=== PATIENT | female | born 1965 | race Caucasian/White ===

== ENCOUNTER 2022-11-22 08:07 | Outpatient (OUT) | payer OTHER, SELFPAY ==
--- NOTE | 2022-11-22 08:21 | MM_ITS ---
Patient: ADRIANA KAPADIA Exam Date: 11/22/2022 : 1965 Gender:F Ordering : DR KRANTHI MARISCAL M.D. Admission #: [id number] Family : DR Valdesarnie Stevenson . Order #: [id number] CLICK HERE TO VIEW EXAM RADIOLOGY REPORT PROCEDURE: MM TOMOSYNTHESIS SCREENING BI COMPARISON: MG MAMM SCREEN 3D KERI CAD, 10/28/2021. INDICATIONS: Screening Calculator Name NCI Breast Cancer Risk Assessment Tool 5 Year Breast Cancer Risk 1.70% Lifetime Breast Cancer Risk 9.40% Personal Breast Cancer No Personal Ovarian Cancer No Treatments None Family Cancers Grandfather-paternal with prostate cancer at age ~70; Grandmother-maternal with breast cancer at age 88. LOCATION: [facility] BREAST COMPOSITION: Extremely dense, which lowers the sensitivity of mammography. FINDINGS: DIAGNOSTIC CATEGORY 2--BENIGN FINDING: RIGHT BREAST: No significant suspicious finding. No significant change has occurred. LEFT BREAST: No significant suspicious finding. Scattered benign-appearing lymph nodes are present. No significant change has occurred. RECOMMENDATIONS: ROUTINE MAMMOGRAM AND CLINICAL EVALUATION IN 12 MONTHS. PLEASE NOTE: A NORMAL MAMMOGRAM DOES NOT EXCLUDE THE POSSIBILITY OF BREAST CANCER. A CLINICALLY SUSPICIOUS PALPABLE LUMP SHOULD BE BIOPSIED. Dictated by: Preston Uribe M.D. on 11/22/2022 at 11:16 Approved by: Preston Uribe M.D. on 11/22/2022 at 11:35
== END 2022-11-22 08:08 ==
LOC: MAMMO 08:10
PROVIDERS: PCP Family Medicine; Visit Provider Family Medicine
DX: Z12.31 Encounter for screening mammogram for malignant neoplasm of breast (principal); Z80.3 Family history of malignant neoplasm of breast; Z80.8 Family history of malignant neoplasm of other organs or systems
CPT/HCPCS: 77063; 77067

== ENCOUNTER 2023-04-20 06:44 | Outpatient (OUT) | payer OTHER, SELFPAY ==
[2023-04-20 07:09] LABS: Basophils Absolute Auto 0.1 10^3/uL (0.0-0.1); Basophils Percent Auto 1.4 % (0.2-2.0); Eosinophils Absolute Auto 0.1 10^3/uL (0.0-0.7); Hematocrit 42.7 % (36.0-48.0); Immature Granulocytes Abs Auto 0.01 10^3/uL (0.00-0.03); Immature Granulocytes Pct Auto 0.2 % (0.0-0.5); Lymphocytes Percent Auto 40.5 % (20.5-60.0); Mean Corpuscular HGB Conc 32.8 g/dL (29.9-35.2); Mean Corpuscular Hemoglobin 29.7 pg (26.7-34.0); Mean Corpuscular Volume 90.7 fL (81.0-99.0); Mean Platelet Volume 9.7 fL (9.5-13.5); Monocytes Absolute Auto 0.3 10^3/uL (0.3-0.8); Neutrophils Absolute Auto 2.5 10^3/uL (1.4-6.5); Neutrophils Percent Auto 49.9 % (43.0-75.0); Platelet Count 282 10^3/uL (150-450); Red Blood Count 4.71 10^6/uL (4.20-5.40); Red Cell Distribution Width 13.8 % (11.0-15.0)
--- NOTE | 2023-04-20 07:12 | XR_ITS ---
The [address] [address] Patient Name: ADRIANA KAPADIA MRN: [id number] date: 1965 Sex: F Assigned Patient Location: LAB Current Patient Location: LAB Accession/Order Number: [id number] Exam Date: 04/20/2023 07:06 Report Date: 04/20/2023 11:32 At the request of: KRANTHI MARISCAL Procedure: XR cervical spine 5V EXAMINATION: XR cervical spine 5V HISTORY: M54.2 COMPARISON: No relevant comparison available. FINDINGS: BONES: Reversal of normal cervical lordosis. No acute fracture or spondylolisthesis. Mild degenerative spondylosis and facet osteoarthropathy C3-C5 DISC SPACES: Normal. No significant disc height narrowing, subluxation, or endplate abnormality. PARASPINOUS: Negative. No paraspinous abnormality is seen. OTHER: No plain film abnormality correspond to the patient's palpable lump demarcated with the BB along the dorsal neck at the C4 level XR/XR cervical spine 5V IMPRESSION: Mild degenerative changes Electronically authenticated by: MICHELLE GÓMEZ Date: 04/20/2023 11:32
[2023-04-20 07:38] LABS: Alanine Aminotransferase 18 U/L (14-59); Albumin Globulin Ratio 1.1; Albumin Level 3.8 g/dL (3.4-5.0); Alkaline Phosphatase 83 U/L (46-116); Anion Gap 13.5; Aspartate Amino Transferase 13 U/L (15-37); Bilirubin Total 0.4 mg/dL (0.2-1.0); Carbon Dioxide 28.5 mmol/L (21.0-32.0); Chloride 103 mmol/L (98-107); Chol HDL Ratio 3.2; Cholesterol 217 mg/dL (<=200); Estimated GFR (African America >60 (>=60); Estimated GFR (Non-African Ame >60 (>=60); Globulin 3.6 g/dL; Glucose 90 mg/dL (74-106); HDL Cholesterol 67 mg/dL (40-60); Sodium 141 mmol/L (136-145); Thyroid Stimulating Hormone 4.117 uIU/mL (0.358-3.740); Total Protein 7.4 g/dL (6.4-8.2); Triglycerides 81 mg/dL (<=150); VLDL CHOLESTEROL 16.2 mg/dL
== END 2023-04-20 06:45 | disposition home or self-care (01) ==
LOC: LAB 06:44
PROVIDERS: PCP Family Medicine; Visit Provider Family Medicine
DX: Z00.00 Encounter for general adult medical examination without abnormal findings (principal)
CPT/HCPCS: 36415; 72050; 80053; 80061; 84443; 85025

== ENCOUNTER 2023-06-08 15:49 | Outpatient (OUT) | payer OTHER, SELFPAY ==
--- OUTSIDE RECORDS SUMMARY | 2023-06-08 15:53 | XMS_ITS | CCD ---
Author Name Unknown Address [address] [place] [address] Organization [facility] Care Team Providers Care Head Of Conservation Name Role Phone LOIDA, DR SVETA Adan Primary Care Unavailable FLORES, DR SVETA Adan Admitting Unavailable FLORES, DR SVETA Adan Attending Unavailable FLORES, DR SVETA Adan Consulting Unavailable GRILLIS, DR VALENTINA Adan Consulting Unavailabl e FLORES, DR SVETA Adan Primary Care Unavailable GRILLIS, DR VALENTINA Adan Admitting Unavailabl e GRLAUREENS, DR VALENTINA Adan Attending Unavailabl e FLORES, DR SVETA Adan Primary Care Unavailable GRILLIS, DR VALENTINA Adan Admitting Unavailabl e RAMIREZ, EMY Consulting Unavailable GRILLIS, DR VALENTINA Adan Attending Unavailabl e GRLAUREENS, DR VALENTINA Adan Admitting Unavailabl e FLORES, DR SVETA Adan Primary Care Unavailable GRILLIS, DR VALENTINA Adan Attending Unavailabl e SHEA, DR VALENTINA Adan Consulting Unavailabl e BUDDY, SEAN JANSEN Consulting Unava ilable GEMBUS, BOZENA Consulting Unavailable FLORES, DR SVETA Adan Primary Care Unavailable PESHTIGO, DR MICHELLE Hart Consulting Unavailable FLORES, DR SVETA Adan Admitting Unavailable FLORES, DR SVETA Adan Attending Unavailable RAGHU, DR CARVALHO Consulting Unavailable FLORES, DR SVETA Adan Consulting Unavailable Flores, Sveta Fletcher Allergies Allergy Classification Reported Allergen(s) Allergy Type Date of Onset Reaction(s) Facility (2 sources) patient allergy list reviewed by nurse or physicia Propensity to adverse reactions 4 Comment:Done [facility] Other (2 sources) Allergies Reconciled Propensity to adverse reactions Unknown [facility] Other Medications Current Medications Medication Drug Class(es) Dates Sig (Normalized) Sig (Original) Calcium (2 sources) Phosphate Binder, Calcium Calcium + D Active fluticasone propionate 0.05 mg/actuat metered dose nasal spray (2 sources) Corticosteroid Start: 08-02-2019 take 1 spray(s) nasal route once daily Fluticasone Propionate 50 MCG/ACT 1 spray in each nostril Nasally Once a day for 21 days Jul, Active Start: 08-02-2019 take 1 spray(s) nasa l route once daily Fluticasone Propionate 50 MCG/ACT 1 spray in each nostril Nasally Once a day for 21 days Jul, Active levothyroxine sodium 0.05 mg oral tablet (1 source) l-Thyroxine take 1 tablet by mouth once daily in the morning Synthroid 50 MCG 1 tablet in the morning on an empty stomach Orally Once a day for 30 days Active Problems Active Problems Problem Classification Problem Date Documented Da te Episodic/Chronic Acute bronchitis (2 sources) Acute bronchitis; Translations: [Acute bronchitis, unspecified] Episodic Allergic reactions (2 sources) Contact dermatitis; Translations: [Unspecified contact dermatitis, unspecified cause] Episodic Cancer; other and unspecified primary (2 sources) Malignant neoplasm of thorax; Translations: [Malignant neoplasm of thorax] Onset: 09-16-2015 Chronic Diverticulosis and diverticulitis (1 source) Diverticulosis of large intestine without perforation or abscess without bleeding; Translations: [DVRTCLOS LG INT NO PERF/ABSC W/O BL] Onset: 06-01-2022 Chronic Esophageal disorders (1 source) Gastro-esophageal reflux disease without esophagitis; Translations: [GERD WITHOUT ESOPHAGITIS] Onset: 06-01-2022 Chronic Gastrointestinal hemorrhage (5 sources) Hemorrhage of anus and rectum; Translations: [HEMORRHAGE OF ANUS AND RECTUM] Onset: 05-15-2022 Episodic Genitourinary symptoms and ill-defined conditions (4 sources) Dysuria; Translations: [Dysuria] Episodic Hemorrhoids (4 sources) Other hemorrhoids; Translations: [Residual hemorrhoidal skin tags] Onset: 06-01-2022 Episodic Other aftercare (1 source) 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; Translations: [OTH LONGTERM CURRENT DRUG THERAPY] Onset: 06-01-2022 Episodic Other nutritional; endocrine; and metabolic disorders (4 sources) Body mass index 25-29 - overweight; Translations: [Body mass index 28.0-28.9, adult] Onset: 09-05-2017 Episodic Other upper respiratory infections (2 sources) Chronic sinusitis; Translations: [Chronic sinusitis, unspecified] Chronic Residual codes; unclassified (1 source) Acquired absence of both cervix and uterus; Translations: [ACQUIRED ABSENCE BOTH CERVIX AND UTERUS] Onset: 06-01-2022 Episodic Residual codes; unclassified (2 sources) Localized edema; Translations: [Localized edema] Episodic Screening and history of mental health and substance abuse codes (1 source) Personal history of nicotine dependence; Translations: [PERSONAL HISTORY OF NICOTINE DEPEND] Onset: 06-01-2022 Episodic Thyroid disorders (5 sources) Hypothyroidism, unspecified; Translations: [Hypothyroidism] Onset: 08-17-2021 Chronic Unclassified (1 source) CONTACT W/AND (SUSP) EXPOS COVID-19; Translations: [CONTACT W/AND (SUSP) EXPOS COVID-19] Onset: 05-27-2022 Past or Other Problems Problem Classification Problem Date Documented Da te Episodic/Chronic Bacterial infection; unspecified site (2 sources) Bacterial infectious disease; Translations: [Bacterial infection, unspecified, in conditions classified elsewhere and of unspecified site] Onset: 09-05-2017 Episodic Headache; including migraine (2 sources) Headache; Translations: [Headache, unspecified] Onset: 12-16-2014 Episodic Malaise and fatigue (2 sources) Malaise and fatigue; Translations: [Other malaise and fatigue] Onset: 07-08-2015 Episodic Nonspecific chest pain (2 sources) Chest pain; Translations: [Chest pain, unspecified] Onset: 11-12-2013 Episodic Other nutritional; endocrine; and metabolic disorders (2 sources) Overweight; Translations: [Overweight] Onset: 09-05-2017 Episodic Other screening for suspected conditions (not mental disorders or infectious disease) (4 sources) Encounter for screening mammogram for malignant neoplasm of breast; Translations: [ENC SCR MAMMO MALIG NEOPLASM BREAST] Onset: 10-28-2021 Episodic Other skin disorders (2 sources) Disorder of skin and/or subcutaneous tissue; Translations: [Unspecified disorder of skin and subcutaneous tissue] Onset: 09-16-2015 Episodic Other upper respiratory infections (2 sources) Acute maxillary sinusitis; Translations: [Acute maxillary sinusitis, unspecified] Onset: 09-05-2017 Episodic Residual codes; unclassified (1 source) Family history of malignant neoplasm of breast; Translations: [FAMILY HX MALIG NEOPLASM OF BREAST] Onset: 11-02-2021 Episodic Residual codes; unclassified (1 source) Family history of malignant neoplasm of prostate; Translations: [FAMILY HX MALIG NEOPLASM PROSTATE] Onset: 11-02-2021 Episodic Spondylosis; intervertebral disc disorders; other back problems (3 sources) Neck pain; Translations: [Cervicalgia] Onset: 12-16-2014 Episodic Results Test Name Value Interpretation Reference Range Facil ity Covid-19 PCR ([facility])on SARS-CoV-2 (COVID-19) RNA LUDWIG+probe Ql (Unsp spec) Not detected Normal NOT DETECTED [facility] Comment on above: Result Comment: This test is not yet approved or cleared by the [place] FDA. When there are no FDA-approved or cleared tests available, and other criteria are met, FDA can make tests available under an emergency access mechanism called an Emergency Use Authorization (EUA). The EUA for this test is supported by the Child Welfare Manager of Health and Human Service's (HHS's) declaration that circumstances exist to justify the emergency use of in vitro diagnostics for the detection and/or diagnosis of the virus that causes COVID-19. This EUA will remain in effect (meaning this test can be used) for the duration of the COVID-19 declaration justifying emergency of IVDs, unless it is terminated or revoked by FDA (after which the test may no longer be used). When diagnostic testing is negative, the possibility of a false negative should be considered in the context of a patient's recent exposures and the presence of clinical signs and symptoms consistent with SARS-CoV-2. Performed By: #### [facility] #### [facility] [address] [place] [address] Dr. Solange Allen MG MAMM SCREEN 3D KERI CADon 10-28-2021 MG MAMM SCREEN 3D KERI CAD Patient: ADRIANA KAPADIA Exam Date: 10/28/2021 : 1965 Gender:F Ordering : DR SVETA FLORES M.D. Admission #: [id number] Family : DR DEVEN KRISHNAMURTHY . Order #: [id number] CLICK HERE TO VIEW EXAM RADIOLOGY REPORT PROCEDURE: MAMMOGRAM SCREENING 3D BILATERAL CAD COMPARISON: MG MAMM SCREEN 3D KERI CAD, 10/27/2020. MG MAMM SCREEN KERI W CAD, 09/03/2019. INDICATIONS: Screening mammography Calculator Name NCI Breast Cancer Risk Assessment Tool 5 Year Breast Cancer Risk 1.70% Lifetime Breast Cancer Risk 9.60% Personal Breast Cancer No Personal Ovarian Cancer No Treatments None Family Cancers Grandfather-paternal with prostate cancer at age 70; Grandmother-maternal with breast cancer at age 88. LOCATION: [facility] BREAST COMPOSITION: Extremely dense, which lowers the sensitivity of mammography. FINDINGS: DIAGNOSTIC CATEGORY 1--NEGATIVE. NO CHANGE FROM COMPARISON ASSESSMENT. Scattered benign-appearing nodules are present. Scattered benign-appearing calcifications are present. Scattered benign-appearing lymph nodes are present. RIGHT BREAST: No significant suspicious finding. LEFT BREAST: No significant suspicious finding. RECOMMENDATIONS: ROUTINE MAMMOGRAM AND CLINICAL EVALUATION IN 12 MONTHS. PLEASE NOTE: A NORMAL MAMMOGRAM DOES NOT EXCLUDE THE POSSIBILITY OF BREAST CANCER. A CLINICALLY SUSPICIOUS PALPABLE LUMP SHOULD BE BIOPSIED. Dictated by: Michelle Horton MD on 10/28/2021 at 08:24 Approved by: Michelle Horton MD on 10/28/2021 at 08:26 Normal [facility] FREE T4on 08-15-2021 Free T4 [Mass/Vol] 0.92 ng/dL Normal 0.78-2.19 [facility] Comment on above: Performed By: #### F T4 #### [facility] [address] [address] [address] Solange Allen LIPID PROFILEon 08-15-2021 CHOL-HDL RATIO NORM SEE BELOW Normal [facility] Comment on above: Result Comment: 3.3 - 4.4 LOW RISK 4.4 - 7.1 AVERAGE RISK 7.1 - 11.0 MODERATE RISK >11.0 HIGH RISK Performed By: #### L IPID, TSH, CMP #### [facility] [address] [address] [address] Solange Allen Cholesterol [Mass/Vol] 192 mg/dL Normal <=200 [facility] Comment on above: Performed By: #### L IPID, TSH, CMP #### [facility] [address] [place], [place] [address] Dr. Solange Allen Cholesterol in HDL [Mass/Vol] 59 mg/dL Normal [facility] Comment on above: Performed By: #### L IPID, TSH, CMP #### [facility] [address] [address] [address] Solange Allen Cholesterol in LDL [Mass/Vol] 118.8 mg/dL Normal [facility] Comment on above: Performed By: #### L IPID, TSH, CMP #### [facility] [address] [address] [address] Solange Allen Cholesterol.total/C holesterol in HDL [Mass ratio] 3.3 {ratio} Normal [facility] Comment on above: Performed By: #### L IPID, TSH, CMP #### [facility] [address] [address] [address] Solange Allen HDL NORMAL > or = 60 mg/dl - LO W CARDIOVASCULAR RISK <40 mg/dl - HIGH CARDIOVASCULAR RISK Normal [facility] Comment on above: Performed By: #### L IPID, TSH, CMP #### [facility] [address] [address] [address] Solange Allen LDL CALC NORMAL SEE BELOW Normal [facility] Comment on above: Result Comment: <100 mg/dl OPTIMAL 100 - 129 mg/dl NEAR OR ABOVE OPTIMAL 130 - 159 mg/dl BORDERLINE HIGH 160 - 189 mg/dl HIGH >190 mg/dl VERY HIGH Performed By: #### L IPID, TSH, CMP #### [facility] [address] [address] [address] Solange Allen Triglyceride [Mass/Vol] 71 mg/dL Normal <=150 [facility] Comment on above: Performed By: #### L IPID, TSH, CMP #### [facility] [address] [address] [address] Solange Allen VLDL CALC 14.2 mg/dL Normal [facility] Comment on above: Performed By: #### L IPID, TSH, CMP #### [facility] [address] [address] [address] Solange Allen PROF 14(COMP METB)on 022 Albumin [Mass/Vol] 3.9 g/dL Normal 3.5-5.0 [facility] Comment on above: Performed By: #### L IPID, TSH, CMP #### [facility] [address] [address] [address] Solange Allen Albumin/Globulin [Mass ratio] 1.1 {ratio} Normal [facility] Comment on above: Performed By: #### L IPID, TSH, CMP #### [facility] [address] [address] [address] Solange Allen ALP [Catalytic activity/Vol] 84 U/L Normal 38-126 [facility] Comment on above: Performed By: #### L IPID, TSH, CMP #### [facility] [address] [address] [address] Solange Allen ALT [Catalytic activity/Vol] 18 U/L Normal 9-52 [facility] Comment on above: Performed By: #### L IPID, TSH, CMP #### [facility] [address] [place] [address] Dr. Solange Allen Anion gap [Moles/Vol] 11.0 mmol/L Normal [facility] Comment on above: Performed By: #### L IPID, TSH, CMP #### [facility] [address] [place] [address] Dr. Solange Allen AST [Catalytic activity/Vol] 14 U/L Normal 14-36 [facility] Comment on above: Performed By: #### L IPID, TSH, CMP #### [facility] [address] [address] [address] Solange Allen Bilirubin [Mass/Vol] 0.3 mg/dL Normal 0.2-1.3 [facility] Comment on above: Performed By: #### L IPID, TSH, CMP #### [facility] [address] [place] [address] Dr. Solange Allen Calcium [Mass/Vol] 9.2 mg/dL Normal 8.4-10.2 [facility] Comment on above: Performed By: #### L IPID, TSH, CMP #### [facility] [address] [place] [address] Dr. Solange Allen Chloride [Moles/Vol] 106 mmol/L Normal 98-107 [facility] Comment on above: Performed By: #### L IPID, TSH, CMP #### [facility] [address] [place] [address] Dr. Solange Allen CO2 [Moles/Vol] 26.6 mmol/L Normal 22.0-30.0 [facility] Comment on above: Performed By: #### L IPID, TSH, CMP #### [facility] [address] [address] [address] Solange Allen Creatinine [Mass/Vol] 1.27 mg/dL Critically high 0.52-1.04 [facility] Comment on above: Performed By: #### L IPID, TSH, CMP #### [facility] [address] [place] [address] Dr. Solange Allen EGFR-AF JAPANESE 53 mL/min/1.73m2 Critically low >=60 [facility] Comment on above: Performed By: #### L IPID, TSH, CMP #### [facility] [address] [place] [address] Dr. Solange Allen EGFR-NON AF JAPANESE 43 mL/min/1.73m2 Critically low >=60 [facility] Comment on above: Performed By: #### L IPID, TSH, CMP #### [facility] [address] [place] [address] Dr. Solange Allen Globulin (S) [Mass/Vol] 3.4 g/dL Normal [facility] Comment on above: Performed By: #### L IPID, TSH, CMP #### [facility] [address] [place] [address] Dr. Solange Allen Glucose [Mass/Vol] 96 mg/dL Normal 74-106 [facility] Comment on above: Performed By: #### L IPID, TSH, CMP #### [facility] [address] [place] [address] Dr. Solange Allen Potassium [Moles/Vol] 4.6 mmol/L Normal 3.4-5.0 [facility] Comment on above: Performed By: #### L IPID, TSH, CMP #### [facility] [address] [place] [address] Dr. Solange Allen Protein [Mass/Vol] 7.3 g/dL Normal 6.1-8.2 [facility] Comment on above: Performed By: #### L IPID, TSH, CMP #### [facility] [address] [place] [address] Dr. Solange Allen Sodium [Moles/Vol] 139 mmol/L Normal 137-145 [facility] Comment on above: Performed By: #### L IPID, TSH, CMP #### [facility] [address] [place] [address] Dr. Solange Allen Urea nitrogen [Mass/Vol] 17.0 mg/dL Normal 7.0-17.0 [facility] Comment on above: Performed By: #### L IPID, TSH, CMP #### [facility] [address] [place] [address] Dr. Solange Allen Urea nitrogen/Creatinine [Mass ratio] 13.4 mg/mg Normal [facility] Comment on above: Performed By: #### L IPID, TSH, CMP #### [facility] [address] [place] [address] Dr. Solange Allen TSHon 08-15-2021 TSH 2.727 uIU/mL Normal 0.470-4.680 [facility] Comment on above: Performed By: #### L IPID, TSH, CMP #### [facility] [address] [place] [address] Dr. Solange Allen TSH RANGE SEE BELOW Normal [facility] Comment on above: Result Comment: <0.3 4 UIU/ml HYPERTHYROID 0.34-5.60 UIU/ml EUTHYROID >5.60 UIU/ml HYPOTHYROID Performed By: #### L IPID, TSH, CMP #### [facility] [address] [place] [address] Dr. Solange Allen Vital Signs Date Time Vital Sign Value Performing Clinician Facility 04-19-2023 13:00-0400 Body height 170.18 cm Sveta Flores Other [facility] Other 04-19-2023 13:00-0400 Body mass index (BMI) [Ratio] 29.44 kg/m2 Sveta Flores Other [facility] Other 04-19-2023 13:00-0400 Body weight 85.28 kg Sveta Flores Other [facility] Other 04-19-2023 13:00-0400 Diastolic blood pressure 65 mm[Hg] Sveta Flores Other [facility] Other 04-19-2023 13:00-0400 Systolic blood pressure 109 mm[Hg] Sveta Flores Other [facility] Other Encounters Encounter Date Encounter Type Care Provider Facility Start: 06-05-2023 End: 06-05-2023 ambulatory Sveta Flores Other [facility] Other Start: 06-05-2023 Telephone encounter Sveta Flores [facility] Start: 04-19-2023 End: 04-19-2023 ambulatory Sveta Flores Other [facility] Other Start: 04-19-2023 Encounter for genera l adult medical examination without abnormal findings Sveta Flores [facility] Start: 04-19-2023 Periodic preventive med est patient 40-64yrs Sveta Flores [facility] Start: 06-07-2022 Adult health examination Sary Flores Other [facility] Other Start: 05-27-2022 Encounter for preprocedural laboratory examination DR VALENTINA VALDIVIA [facility] Start: 05-24-2022 End: 05-24-[address] VALENTINA VALDIVIA Facility:[facility] Start: 05-19-2022 End: 05-20-[address] VALENTINA VALDIVIA Facility:[facility] Start: 05-19-2022 End: 05-20-2022 Encounter for preprocedural laboratory examination DR VALENTINA VALDIVIA Facility:[facility] Start: 05-15-2022 Encounter for other preprocedural examination DR VALENTINA VALDIVIA [facility] Start: 05-10-2022 End: 05-11-[address] SVETA FLORES Facility:[facility] Start: 05-10-2022 End: 05-11-2022 Encounter for other preprocedural examination DR SVETA FLORES Facility:[facility] Start: 10-28-2021 End: 10-29-[address] SVETA FLORES Facility:[facility] Start: 08-17-2021 Encounter for genera l adult medical examination without abnormal findings DR SVETA FLORES [facility] Start: 08-15-2021 End: 08-16-[address] SVETA FLORES Facility:[facility] Start: 08-15-2021 End: 08-16-2021 Encounter for general adult medical examination without abnormal findings DR SVETA FLORES Facility:[facility] Start: 02-15-2016 Gynecological examin ation normal Sveta Flores Other [facility] Other Payers Date Payer Category Payer Unknown [id number] 2.16.84 [id number] 1965 Unknown [id number] 2.16.84 [id number] 1965 Unknown [id number] 2.16.84 [id number] 1965 Unknown [id number] 2.16.84 [id number] 1965 Unknown [id number] 2.16.84 [id number] 1961 Private Health Insurance [id number] Social History Date Type Detail Facility Unknown if ever smoked [facility] Other Sex Assigned At Sex Assigned At Bir th [facility] Other Evaluation note 06-05-2023 Note Date & Type Note Facility 06-05-2023 Evaluation note Encounter Date Diagnosis Assessment Notes May, Hypothyroidism, unspecified type (ICD-10 - E03.9) [facility] Other Evaluation note 04-19-2023 Note Date & Type Note Facility 04-19-2023 Evaluation note Encounter Date Diagnosis Assessment Notes Apr, Well adult exam (ICD-10 - Z00.00) We have discussed the necessity of following up with PCP regularly as well as specialists, as needed. Discussed F/U with dentistry and optometry at least yearly. Discussed all preventative measures/ cancer screenings as applicable to this patient. Emphasized the importance of a reduced fat, low carb diet to promote heart health and controlled blood sugars. Reviewed social history and ensured patient is safe within the home today. Pt denies any abuse of alcohol, nicotine, caffeine or recreational drugs. I have ensured patient is of stable mental and physical health today. We have discussed appropriate F/U schedule as well as blood work and vaccinations that apply. All questions answered and patient is sent home pleased, without concerns. Apr, Cervical pain (neck) (ICD-10 - M54.2) Discussed massotherapy physical therapy and daily home stretches as needed. We will call patient with x-ray results. [facility] Other History general Narrative - Reported Note Date & Type Note Facility History general Narrative - Reported Type Medical History Problem Title : Acut e bronchitis due to other specified organisms [], Problem Description : Acute bronchitis due to other specified organisms [], Problem Comment : Acute bronchitis due to other specified organisms, Problem Status : Active,, Medical History Problem Title : comp liance with medical treatment, Problem Description : compliance with medical treatment, Problem Comment : Done, Problem Status : Active,, Medical History Problem Title : Depr ession Screening, Problem Description : Depression Screening, Problem Comment : Negative, Problem Status : Active,, Medical History Problem Title : Hypo thyroidism, Problem Status : Active,, Medical History Problem Title : MEDI MOSES: Headaches, Problem Status : Active,, Medical History Problem Title : MEDI MOSES: No history of significant medical diseases, Problem Status : Inactive,, Medical History Problem Title : no k nown problems, Problem Description : no known problems, Problem Comment : F, Problem Status : Active,, Medical History Problem Title : past medical history E&M, Problem Description : past medical history E&M, Problem Comment : Headaches, Problem Status : Active,, Medical History Problem Title : past medical history reviewed, Problem Description : past medical history reviewed, Problem Comment : reviewed - no changes required, Problem Status : Active,, Medical History Problem Title : PCP: Sveta Flores, Problem Status : Active,, Medical History Problem Title : Phar nahid: [facility], Problem Status : Active,, Medical History Problem Title : PHQ2 Questionairre Score, Problem Description : PHQ2 Questionairre Score, Problem Comment : 0, Problem Status : Active,, Medical History Problem Title : PHQ9 Question One score, Problem Description : PHQ9 Question One score, Problem Comment : 0, Problem Status : Active,, Medical History Problem Title : PHQ9 Question Two score, Problem Description : PHQ9 Question Two score, Problem Comment : 0, Problem Status : Active,, Medical History Problem Title : CLARK SFUSION HISTORY: No history of receiving blood or blood product transfusion(s), Problem Status : Active,, Surgical History appendectomy Surgical History tonsillectomy Surgical History HYSTERECTOMY Hospitalization History [place] in [place] Other Summary Purpose Family History No Family History Records Found Advance Directives No Advanced Directives Records Found Additional Source Comments INFORMATION SOURCE (unrecogn ized section and content) DATE CREATED AUTHOR 06/08/2022 [facility] REASON FOR VISIT (unrecogniz ed section and content) [facility] FOR RECORDS PERTAINING TO PATIENTS WHO ARE OR HAVE BEEN ENROLLED IN A CHEMICAL DEPENDENCY/SUBSTANCEABUSE PROGRAM, SOME INFORMATION MAY BE OMITTED. This clinical summary was aggregated from multiple sources. Caution should be exercised in using it in the provision of clinical care. This summary normalizes information from multiple sources, and as a consequence, information in this document may materially change the coding, format and clinical context of patient data. In addition, data may be omitted in some cases. CLINICAL DECISIONS SHOULD BE BASED ON THE PRIMARY CLINICAL RECORDS. [employer] provides no warranty or guarantee of the accuracy or completeness of information in this document.
[2023-06-08 16:38] LABS: Thyroid Stimulating Hormone 1.552 uIU/mL (0.358-3.740)
[2023-06-08 17:44] LABS: Free T4 0.95 ng/dL (0.76-1.46)
== END 2023-06-08 15:50 | disposition home or self-care (01) ==
PROVIDERS: PCP Family Medicine; Visit Provider Family Medicine
DX: E03.9 Hypothyroidism, unspecified (principal)
CPT/HCPCS: 36415; 84439; 84443

== ENCOUNTER 2023-09-06 07:37 | Outpatient (OUT) | payer OTHER, SELFPAY ==
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
[2023-09-06 07:49] LABS: Basophils Absolute Auto 0.1 10^3/uL (0.0-0.1); Basophils Percent Auto 1.2 % (0.2-2.0); Eosinophils Absolute Auto 0.1 10^3/uL (0.0-0.7); Eosinophils Percent Auto 2.2 % (0.9-7.0); Hematocrit 43.8 % (36.0-48.0); Hemoglobin 13.6 g/dL (12.0-16.0); Immature Granulocytes Abs Auto 0.01 10^3/uL (0.00-0.03); Immature Granulocytes Pct Auto 0.2 % (0.0-0.5); Lymphocytes Absolute Auto 1.9 10^3/uL (1.2-3.8); Lymphocytes Percent Auto 39.6 % (20.5-60.0); Mean Corpuscular HGB Conc 31.1 g/dL (29.9-35.2); Mean Corpuscular Hemoglobin 28.6 pg (26.7-34.0); Mean Platelet Volume 9.2 fL (9.5-13.5); Monocytes Absolute Auto 0.3 10^3/uL (0.3-0.8); Monocytes Percent Auto 5.7 % (1.7-12.0); Neutrophils Absolute Auto 2.5 10^3/uL (1.4-6.5); Neutrophils Percent Auto 51.1 % (43.0-75.0); Platelet Count 280 10^3/uL (150-450); Red Blood Count 4.76 10^6/uL (4.20-5.40); White Blood Count 4.9 10^3/uL (4.0-11.0)
[2023-09-06 10:09] LABS: Alanine Aminotransferase 18 U/L (14-59); Albumin Globulin Ratio 1.1; Albumin Level 3.7 g/dL (3.4-5.0); Alkaline Phosphatase 81 U/L (46-116); Anion Gap 13.9; Aspartate Amino Transferase 14 U/L (15-37); BUN Creatinine Ratio 13.5; Bilirubin Total 0.3 mg/dL (0.2-1.0); Calcium 9.2 mg/dL (8.5-10.1); Carbon Dioxide 29.2 mmol/L (21.0-32.0); Chloride 104 mmol/L (98-107); Chol HDL Ratio 3.5; Cholesterol 216 mg/dL (<=200); Estimated GFR (African America >60 (>=60); Estimated GFR (Non-African Ame 54 (>=60); Globulin 3.5 g/dL; Glucose 84 mg/dL (74-106); HDL Cholesterol 62 mg/dL (40-60); Potassium 4.1 mmol/L (3.5-5.1); Sodium 143 mmol/L (136-145); Thyroid Stimulating Hormone 1.534 uIU/mL (0.358-3.740); Total Protein 7.2 g/dL (6.4-8.2); Triglycerides 109 mg/dL (<=150); VLDL CHOLESTEROL 21.8 mg/dL
== END 2023-09-06 07:38 | disposition home or self-care (01) ==
LOC: LAB 07:38
PROVIDERS: PCP Family Medicine; Visit Provider Family Medicine
DX: Z00.00 Encounter for general adult medical examination without abnormal findings (principal)
CPT/HCPCS: 36415; 80053; 80061; 84443; 85025

== ENCOUNTER 2023-11-28 07:23 | Outpatient (OUT) | payer OTHER, SELFPAY ==
--- NOTE | 2023-11-28 07:25 | MM_ITS ---
Patient Name: ADRIANA KAPADIA MR#: [id number] : 1965 Exam Date: 11/28/2023 Ordering Doctor: DR Sveta Flores M.D. RADIOLOGY REPORT PROCEDURE: MM TOMOSYNTHESIS SCREENING BI COMPARISON: MG MAMM SCREEN 3D KERI CAD, 10/28/2021. MM TOMOSYNTHESIS SCREENING BI, 11/22/2022. INDICATIONS: Screening Calculator Name NCI Breast Cancer Risk Assessment Tool 5 Year Breast Cancer Risk 1.80% Lifetime Breast Cancer Risk 9.10% Personal Breast Cancer No Personal Ovarian Cancer No Treatments None Family Cancers Grandfather-paternal with prostate cancer at age ~70; Grandmother-maternal with breast cancer at age 88. LOCATION: [facility] BREAST COMPOSITION: The breasts are extremely dense, which lowers the sensitivity of mammography. FINDINGS: DIAGNOSTIC CATEGORY 2--BENIGN FINDING. NO CHANGE FROM COMPARISON. Scattered benign-appearing calcifications are present. Scattered benign-appearing lymph nodes are present. RIGHT BREAST: No significant suspicious finding. LEFT BREAST: No significant suspicious finding. RECOMMENDATIONS: ROUTINE MAMMOGRAM AND CLINICAL EVALUATION IN 12 MONTHS. PLEASE NOTE: A NORMAL MAMMOGRAM DOES NOT EXCLUDE THE POSSIBILITY OF BREAST CANCER. A CLINICALLY SUSPICIOUS PALPABLE LUMP SHOULD BE BIOPSIED. Dictated by: Shimon Horton MD on 11/28/2023 at 08:52 Approved by: Shimon Horton MD on 11/28/2023 at 08:58
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
== END 2023-11-28 07:24 | disposition home or self-care (01) ==
LOC: MAMMO 07:23
PROVIDERS: PCP Family Medicine; Visit Provider Family Medicine
DX: Z12.31 Encounter for screening mammogram for malignant neoplasm of breast (principal); Z80.3 Family history of malignant neoplasm of breast; Z80.42 Family history of malignant neoplasm of prostate
CPT/HCPCS: 77063; 77067

== ENCOUNTER 2024-09-01 07:30 | Outpatient (OUT) | payer OTHER, SELFPAY ==
[2024-09-01 08:01] LABS: Basophils Absolute Auto 0.1 10^3/uL (0.0-0.1); Basophils Percent Auto 0.9 % (0.2-2.0); Eosinophils Absolute Auto 0.1 10^3/uL (0.0-0.7); Eosinophils Percent Auto 1.6 % (0.9-7.0); Hematocrit 42.5 % (36.0-48.0); Hemoglobin 13.7 g/dL (12.0-16.0); Immature Granulocytes Abs Auto 0.01 10^3/uL (0.00-0.03); Immature Granulocytes Pct Auto 0.2 % (0.0-0.5); Lymphocytes Absolute Auto 2.2 10^3/uL (1.2-3.8); Mean Corpuscular HGB Conc 32.2 g/dL (29.9-35.2); Mean Corpuscular Hemoglobin 29.3 pg (26.7-34.0); Mean Platelet Volume 9.6 fL (9.5-13.5); Monocytes Absolute Auto 0.4 10^3/uL (0.3-0.8); Monocytes Percent Auto 6.4 % (1.7-12.0); Neutrophils Absolute Auto 2.8 10^3/uL (1.4-6.5); Neutrophils Percent Auto 50.9 % (43.0-75.0); Platelet Count 265 10^3/uL (150-450); Red Blood Count 4.67 10^6/uL (4.20-5.40); Red Cell Distribution Width 13.9 % (11.0-15.0); White Blood Count 5.5 10^3/uL (4.0-11.0)
[2024-09-01 08:24] LABS: Alanine Aminotransferase 15 U/L (14-59); Albumin Globulin Ratio 1.2; Albumin Level 3.7 g/dL (3.4-5.0); Alkaline Phosphatase 97 U/L (46-116); Anion Gap 9.9; Aspartate Amino Transferase 16 U/L (15-37); BUN Creatinine Ratio 17.8; Bilirubin Total 0.4 mg/dL (0.2-1.0); Calcium 9.2 mg/dL (8.5-10.1); Chloride 106 mmol/L (98-107); Estimated GFR (African America >60 (>=60 mL/min/1.73m^2); Estimated GFR (Non-African Ame 56 (>=60 mL/min/1.73m^2); Globulin 3.2 g/dL; Glucose 87 mg/dL (74-106); Potassium 3.9 mmol/L (3.5-5.1); Sodium 143 mmol/L (136-145); Thyroid Stimulating Hormone 2.491 uIU/mL (0.358-3.740); Total Protein 6.9 g/dL (6.4-8.2)
[2024-09-01 09:25] LABS: Free T4 0.95 ng/dL (0.76-1.46)
[2024-09-04 11:20] LABS: Chol HDL Ratio 3.3; Cholesterol 202 mg/dL (<=200); HDL Cholesterol 61 mg/dL (40-60); Triglycerides 119 mg/dL (<=150); VLDL CHOLESTEROL 23.8 mg/dL
== END 2024-09-01 07:31 | disposition home or self-care (01) ==
LOC: LAB 07:32
PROVIDERS: PCP Family Medicine; Visit Provider Family Medicine
DX: Z00.00 Encounter for general adult medical examination without abnormal findings (principal); E03.9 Hypothyroidism, unspecified
CPT/HCPCS: 36415; 80053; 80061; 84439; 84443; 85025

== ENCOUNTER 2024-12-10 07:17 | Outpatient (OUT) | payer OTHER, SELFPAY ==
--- OUTSIDE RECORDS SUMMARY | 2024-12-01 04:40 | XMS_ITS ---
Author Organization [facility] Address [address] [place] [address] Care Team Providers Care Rn Hemodialysis Name Role Phone Preston Zepeda Unavailable [phone] Self, Referral Unavailable Unavailable REASON FOR VISIT LEFT HAND PAIN, LEFT HEEL Encounters Encounter Location Date Provider Diagnosis [facility] [facility] [address] [facility] [place] [address] [place] [address] 12/01/2024 Preston Zepeda Plan Of Treatment No Information Progress Notes * ADRIANA KAPADIA LDOB:[birth year] (59 yo F)Acc No.[id number]:12/01/2024 Patient: Deirdre BURKETT ADRIANA Portillo Provider: Deirdre Zepeda MD :1965 A ge:59 Y S ex:Female Date:12/01/2024 Address:[address] [place], [place] [id number] Subjective: * Chief Complaints: * 1 . LEFT HAND PAIN, LEFT HEEL. * Medical History: Objective: * Vitals: Assessment: Plan: * Treatment: Forms: * Images: * Electronic signature of Guy Zepeda MD on 12/10/2024 at 07:20 AM EDT Sign off status: Pending * Provider: Deirdre Zepeda MD Date: 12/01/2024 Generated for Printi ng/Faxing/eTransmitting on: 12/10/2024 07:20 AM EDT
--- OUTSIDE RECORDS SUMMARY | 2024-12-01 10:30 | XMS_ITS ---
Author Organization [facility] Address [address] [place] [address] Care Team Providers Care Manager Utilities Name Role Phone Preston Zepeda Unavailable [phone] Self, Referral Unavailable Unavailable Nory William Unavailable [phone] Allergies No Known Allergies REASON FOR VISIT LEFT HAND PAIN, LEFT HEEL Medications Medication SIG (Take, Route, Frequency, Duration) Notes Start Date End Date Status levothyroxine Active Mobic 15 mg 1 tab(s) orally once a day for 30 days 12/01/2024 Active ZyrTEC Active Social History Tobacco Use: Social History Observation Description Date Details (start date - stop date) Never Smoker NA - NA AUDIT-C (Standard) Question Answer Notes Did you have a drink contain ing alcohol in the past year? Yes How often did you have a dri nk containing alcohol in the past year? Declined to specify (0 point) How many drinks did you have on a typical day when you were drinking in the past year? Declined to specify (0 point) How often did you have six o r more drinks on one occasion in the past year? Declined to specify (0 point) Points 0 Interpretation Negative Tobacco Control (Standard) Question Answer Notes Tobacco use: Nonsmoker Problems Problem Type SNOMED Code ICD Code Onset Dates Problem Status W/U Status Risk Notes Problem [id number] Plantar fasciitis, left (M72.2) Active confirmed Vital Signs Height 5'7 in 12/01/2024 Weight 190 lbs 12/01/2024 BMI 29.75 12/01/2024 Encounters Encounter Location Date Provider Diagnosis [facility] [address] [place] [address] 12/01/2024 Nory William Pain, joint, hand, left M25.542 ; Trigger thumb, left thumb M65.312 ; Pain of left heel M79.672 and Plantar fasciitis, left M72.2 Assessments Encounter Date Diagnosis (ICD Code) Assessment Notes Treatment Notes Treatment Clinical Notes Section Notes 12/01/2024 Pain, joint, hand, left (ICD-10 - M25.542) 12/01/2024 Trigger thumb, left thumb (ICD-10 - M65.312) 12/01/2024 Pain of left heel (ICD-10 - M79.672) 12/01/2024 Plantar fasciitis, left (ICD-10 - M72.2) 12/01/2024 Other We discussed treatment options and alternatives with the patient. For her left trigger thumb we have discussed options such as an injection and she would like to proceed with this. If this does not provide improvement we did discuss a trigger finger release surgery. For her left plantar fasciitis I have recommended anti-inflammatories , stretches which I provided, icing, and power step orthotics. She is pleased with these recommendations and we'll follow-up as needed. Plan Of Treatment Medication Medication Name Sig Start Date Stop Date Notes Mobic 15 mg 1 tab(s) orally once a day for 30 days 025 Treatment Notes Assessment Notes Other We discussed treatme nt options and alternatives with the patient. For her left trigger thumb we have discussed options such as an injection and she would like to proceed with this. If this does not provide improvement we did discuss a trigger finger release surgery. For her left plantar fasciitis I have recommended anti-inflammatories, stretches which I provided, icing, and power step orthotics. She is pleased with these recommendations and we'll follow-up as needed. Pending Test Test Name Order Date SCC- FOOT 3 VIEW LEFT [id number] 12/01/2024 SCC- HAND 3 VIEW LEFT [id number] 12/01/2024 Progress Notes * ADRIANA KAPADIA LDOB:[birth year] (59 yo F)Acc No.[id number]:12/01/2024 Patient: Deirdre ADRIANA BURKETT Provider: Kandy William [facility] :1965 A ge:59 Y S ex:Female Date:12/01/2024 Address:[address] [place] [address] [address] , [place], [id number] Subjective: * Chief Complaints: * 1 . LEFT HAND PAIN, LEFT HEEL. * HPI: G eneral Info per Patient Report: Have you seen another doctor in this practice? N o. S gloria affected is L eft. J oint or body part affected is w rist/hand, foot/toes. P ain occurred s pontaneous. W ork related: N o. M otor vehicle accident: N o. T hird constitution party responsibility: N o. Q uality of pain is m oderate. T ype of pain: s harp. H ave you been seen by a Dentist in the last year? Y es. D o you have any dental problems? N o. Patient presents today for evaluation of left thumb triggering and pain. The patient states that it is been particularly painful and bothersome. Denies specific injury. It is been getting stiff and locking at night. Prior to this she was having pain for several years of the base of the thumb. She has been also having heel pain which is worse at night and after long periods of rest. 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 Denies any numbness or tingling. * ROS: G astrointestinal: Ulcer/Reflux Y es. H ematologic: Bruising Y es. * Medical History: C yung, Problems with Anesthesia. * Family History: N o Family History documented.. * Social History: E xercise regularly D o you exercise? Y es. W hat is your place of residence? W here do you live? P rivate home. A DERECK-C (Standard) D id you have a drink containing alcohol in the past year? Y es, H ow often did you have a drink containing alcohol in the past year? D eclined to specify (0 point), H ow many drinks did you have on a typical day when you were drinking in the past year? D eclined to specify (0 point), H ow often did you have six or more drinks on one occasion in the past year? D eclined to specify (0 point), P oints 0 , I nterpretation N egative. T obacco Control (Standard) T obacco use: N onsmoker. * Medications: Everette Alexander , Taking levothyroxine , Medication List reviewed and reconciled with the patient * Allergies: N .K.D.A. Objective: * Vitals: H t: 5'7 , Wt: 190 lbs, BMI:29.75. * Examination: G eneral examination: G eneral examination: The patient is a [] alert and oriented x3 and in no acute distress. Well-dressed and well-groomed. Stands with normal body position and in a calm mood. Normal muscle tone and bulk. No lymphadenopathy. Skin is intact throughout the extremities. Deep tendon reflexes are intact and symmetric. On examination, there is full passive range of motion through the fingers. There is palpable tenderness over the A1 maylin of the left thumb. There is evidence of mild active triggering. The patient has intact flexion and extension at the DIP, PIP, and MCP joints. Skin is intact. Patient is grossly distally neurovascularly intact. On examination of the heel there is tenderness to the central and medial aspect at the plantar fascial insertion. No pain with side by side heel compression. Achilles is intact. No swelling. Pulses and brisk capillary refill. Intact sensation. specific exam: x-ray imaging studies: X-ray 3 views of the left hand taken today in clinic and interpreted me show no acute abnormalities. 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 specific exam: x-ray imaging studies: Assement: specific exam: x-ray imaging studies: []. Assessment: * Assessment: 1. T monorail helper thumb, left thumb - M65.312 (Primary) 2 . P ain, joint, hand, left - M25.542 3 . P ain of left heel - M79.672 4 . P lantar fasciitis, left - M72.2 Plan: * Treatment: 2. P ain, joint, hand, left I maging: SCC- HAND 3 VIEW LEFT 21158 3. P ain of left heel I maging: SCC- FOOT 3 VIEW LEFT 06396 4. O thers Notes: We discussed treatment options and alternatives with the patient. For her left trigger thumb we have discussed options such as an injection and she would like to proceed with this. If this does not provide improvement we did discuss a trigger finger release surgery. For her left plantar fasciitis I have recommended anti-inflammatories, stretches which I provided, icing, and power step orthotics. She is pleased with these recommendations and we'll follow-up as needed. * Procedures: I injected the left trigger thumb at the A1 maylin using 0.5 miles mixed with local anesthetic. Patient tolerated the injection well. * Procedure Codes: 7 3130 X-ray Hand, 3 view, 52606 X-ray Foot, 3 view, 74850 Injection single tendon sheath or ligament, aponeurosis Forms: * Images: * Electronic signature of Nory William CNP on 12/10/2024 at 07:20 AM EDT Sign off status: Pending * Provider: Kandy William CNP Date: 0 12/01/2024 Generated for Oscar amado/Annita/Silvio on: 0 12/10/2024 07:20 AM EDT History and Physical Notes * HPI (History of Present Illness) Category Sub-Category Detail Notes Category Not es General Info per Patient Report Side affected is Left Patient presents tod ay for evaluation of left thumb triggering and pain. The patient states that it is been particularly painful and bothersome. Denies specific injury. It is been getting stiff and locking at night. Prior to this she was having pain for several years of the base of the thumb. She has been also having heel pain which is worse at night and after long periods of rest. 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 Denies any numbness or tingling Joint or body part affected is wrist/marshall d, foot/toes Pain occurred spontaneous Work related: No Motor vehicle accident: No Quality of pain is moderate Type of pain: sharp Have you seen another doctor in this pra ctice? No Third constitution party responsibility: No Have you been seen by a Dentist in the l ast year? Yes Do you have any dental problems? No Examination Category Sub-Category Detail Notes Category Not es General examination General examination: The patient is a [] alert and oriented x3 and in no acute distress. Well-dressed and well-groomed. Stands with normal body position and in a calm mood. Normal muscle tone and bulk. No lymphadenopathy. Skin is intact throughout the extremities. Deep tendon reflexes are intact and symmetric. On examination, there is full passive range of motion through the fingers. There is palpable tenderness over the A1 maylin of the left thumb. There is evidence of mild active triggering. The patient has intact flexion and extension at the DIP, PIP, and MCP joints. Skin is intact. Patient is grossly distally neurovascularly intact. On examination of the heel there is tenderness to the central and medial aspect at the plantar fascial insertion. No pain with side by side heel compression. Achilles is intact. No swelling. Pulses and brisk capillary refill. Intact sensation. specific exam: x-ray imaging studies: X-ray 3 views of the left hand taken today in clinic and interpreted me show no acute abnormalities. 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 specific exam: x-ray imaging studies: Assement: specific exam: x-ray imaging studies: []
--- NOTE | 2024-12-10 07:20 | MM_ITS ---
Patient Name: ADRIANA KAPADIA MR#: [id number] : 1965 Exam Date: 12/10/2024 Ordering Doctor: DR DEVEN KRISHNAMURTHY . RADIOLOGY REPORT PROCEDURE: MM TOMOSYNTHESIS SCREENING BI COMPARISON: MM TOMOSYNTHESIS SCREENING BI, 11/28/2023. MM TOMOSYNTHESIS SCREENING BI, 11/22/2022. MG MAMM SCREEN 3D KERI CAD, 10/28/2021. MG MAMM KERI SCRN W CAD DIG, 06/13/2013. INDICATIONS: Screening Calculator Name NCI Breast Cancer Risk Assessment Tool 5 Year Breast Cancer Risk 1.90% Lifetime Breast Cancer Risk 8.90% Personal Breast Cancer No Personal Ovarian Cancer No Treatments None Family Cancers Grandfather-paternal with prostate cancer at age ~70; Grandmother-maternal with breast cancer at age 88. LOCATION: [facility] BREAST COMPOSITION: The breasts are heterogeneously dense,which may obscure small masses. FINDINGS: DIAGNOSTIC CATEGORY 1--NEGATIVE. RIGHT BREAST: No significant suspicious finding. LEFT BREAST: No significant suspicious finding. RECOMMENDATIONS: ROUTINE MAMMOGRAM AND CLINICAL EVALUATION IN 12 MONTHS. PLEASE NOTE: A NORMAL MAMMOGRAM DOES NOT EXCLUDE THE POSSIBILITY OF BREAST CANCER. A CLINICALLY SUSPICIOUS PALPABLE LUMP SHOULD BE BIOPSIED. Dictated by: Cj Almeida DO on 12/10/2024 at 15:34 Approved by: Cj Almeida DO on 12/10/2024 at 15:35
--- OUTSIDE RECORDS SUMMARY | 2024-12-10 07:20 | XMS_ITS | Clinical Summary ---
Author Organization [facility] Address [address] [place] [address] Care Team Providers Care Counter Sales Representative Name Role Phone Cam Acosta Primary Care Provider [phone] Medications PREMARIN 2.5 MG ORAL TAB Take one(1) tablet daily. 30 7 11/03/2004 Active PREMARIN 2.5 MG ORAL TAB Take one(1) tablet daily. 30 7 11/18/2004 Active Social History Tobacco Use Types Packs/Day Years Used Date Smoking Tobacco: Never Assessed Comments No Sex and Gender Information Value Date Recorded Sex Assigned at Not on file Legal Sex Female 7:29 AM EST Gender Identity Not on file Sexual Orientation Not on file Last Filed Vital Signs Vital Sign Reading Time Taken Comments Blood Pressure 100/60 10/26/2004 9:18 AM EDT Pulse 65 10/26/2004 9:18 AM EDT Temperature - - Respiratory Rate - - Oxygen Saturation - - Inhaled Oxygen Concentration - - Weight 71.4 kg (157 lb 6.4 oz) 10/26/2004 9:18 A M EDT Height 168 cm (5' 6.14 ) 10/26/2004 9:18 AM EDT Body Mass Index 25.3 10/26/2004 9:18 AM EDT Plan of Treatment Health Maintenance Due Date Last Done Comments Anxiety Screening 09/11/1981 Depression Screening 09/11/1981 HIV Screening 09/11/1981 Hepatitis C Screening 09/11/1981 DTaP,Tdap,Td Vaccine (1 - Tdap) 09/11/1982 Cervical Cancer Screening 09/11/[address] Colonography 09/11/2008 Cologuard (FIT-DNA) 09/11/2008 Colonoscopy 09/11/2008 Colorectal Cancer Screening 09/11/2008 Diabetes Screening 09/11/2008 10/26/2004 Fecal Occult Blood 09/11/2008 Lipid Screening 09/11/2008 Sigmoidoscopy 09/11/2008 Pneumococcal Vaccine: 50+ (1 of 1 - PCV) 09/11/2013 Shingrix Vaccine (1 of 2) 09/11/2013 Covid-19 Vaccine (1 - 2023- season) 2024 Influenza Vaccine (Season Ended) 2025 RSV Vaccine (1 - 1-dose 75+ series) 09/11/2038 Procedures Procedure Name Priority Date/Time Associated Diagnosis Comments COMPREHENSIVE METABOLIC PANEL Routine 10/26/2004 10:07 AM EDT Benign Higinio Pituitary from Last 3 Months or Most Recently Relevant to Health Maintenance Results * (ABNORMAL) COMP METABOLIC PANEL (10/26/2004 10:07 AM EDT) Protein, Total 7.7 6.0 - 8.4 g/dL [facility] Albumin 4.9 3.5 - 5.0 g/dL [facility] Calcium 10.2 8.5 - 10.5 mg/dL [facility] Bilirubin, Total 0.3 0.0 - 1.5 mg/dL [facility] Alkaline Phosphatase 71 40 - 150 U/L [facility] AST 19 7 - 40 U/L [facility] Glucose 89 65 - 100 mg/dL [facility] BUN 16 8 - 25 mg/dL [facility] Creatinine 1.0 0.7 - 1.4 mg/dL [facility] Sodium 144 132 - 148 mmol/L [facility] Potassium 4.8 3.5 - 5.0 mmol/L [facility] Chloride 105 98 - 110 mmol/L [facility] CO2 19(A) 23 - 32 mmol/L [facility] Anion Gap 20(A) 0 - 15 mmol/L [facility] ALT 10 0 - 45 U/L [facility] Blood specimen (specimen) BLOOD SPECIMEN / Unknown 10/26/2004 10:07 AM EDT us Amir (Hist) [facility] Final R esult [facility] [address] [place] [address] from Last 3 Months or Most Recently Relevant to Health Maintenance Insurance [employer] ACCESS PPO Member Subscriber Plan / Payer (Ef fective 2004-Present) Name:Aurelia Harden Relation to Subscriber:Spouse Name:AURELIA HARDEN Date of :1960 (Home) Address: [address] [place] [id number] Payer ID:[id number] (NAIC) Type:PPO Address: [facility] [id number] [place] [id number] Care Teams Counter Sales Representative Relationship Specialty Start Date End Date Cam Acosta [address] [place] [address] PCP - General 10/04/04
--- OUTSIDE RECORDS SUMMARY | 2024-12-10 07:20 | XMS_ITS | Clinical Summary ---
Author Organization [facility] Address [address] [place] [address] Care Team Providers Care Mixing Machine Tender Cork Gasket Name Role Phone Unavailable Primary Care Provider Unavailabl e Social History Tobacco Use Types Packs/Day Years Used Date Smoking Tobacco: Never Assessed Comments Unknown Sex and Gender Information Value Date Recorded Sex Assigned at Not on file Legal Sex Female 11:36 PM EDT Gender Identity Not on file Sexual Orientation Not on file Last Filed Vital Signs Vital Sign Reading Time Taken Comments Blood Pressure - - Pulse - - Temperature - - Respiratory Rate - - Oxygen Saturation - - Inhaled Oxygen Concentration - - Weight 83.9 kg (185 lb) 10/25/2021 12:00 PM EDT Height - - Body Mass Index - - Plan of Treatment Not on file
--- OUTSIDE RECORDS SUMMARY | 2024-12-10 07:20 | XMS_ITS | Patient Health Record ---
Author Organization [facility] Address [address] [place] [address] Care Team Providers Care Design Technology Teacher Name Role Phone Preston Zepeda Unavailable [phone] Self, Referral Unavailable Unavailable Nory William Unavailable [phone] Allergies No Known Allergies Reason For Referral No Information Medications Medication SIG (Take, Route, Frequency, Duration) Notes Start Date End Date Status levothyroxine Active Mobic 15 mg 1 tab(s) orally once a day for 30 days 12/01/2024 Active ZyrTEC Active Social History Tobacco Use: Social History Observation Description Date Details (start date - stop date) Never Smoker NA - NA Tobacco Control (Standard) Question Answer Notes Tobacco use: Nonsmoker Problems Problem Type SNOMED Code ICD Code Onset Dates Problem Status W/U Status Risk Notes Problem [id number] Plantar fasciitis, left (M72.2) Active confirmed Vital Signs Height 5'7 in 12/01/2024 Weight 190 lbs 12/01/2024 BMI 29.75 12/01/2024 Encounters Encounter Location Date Provider Diagnosis [facility] [address] [facility] [place] [address] 12/01/2024 Nory Wililam Pain, joint, hand, left M25.542 ; Trigger thumb, left thumb M65.312 ; Pain of left heel M79.672 and Plantar fasciitis, left M72.2 Assessments Encounter Date Diagnosis (ICD Code) Assessment Notes Treatment Notes Treatment Clinical Notes Section Notes 12/01/2024 Trigger thumb, left thumb (ICD-10 - M65.312) 12/01/2024 Pain, joint, hand, left (ICD-10 - M25.542) 12/01/2024 Pain of left heel (ICD-10 - [...] we'll follow-up as needed. Plan Of Treatment Pending Test Test Name Order Date SCC- FOOT 3 VIEW LEFT [id number] 12/01/2024 SCC- HAND 3 VIEW LEFT [id number] 12/01/2024 Insurance Providers Payer Name Payer Address Payer Phone Subscriber Number Group Number Insured Name Patient Relationship to Insured Coverage Start Date Coverage End Date Arelis [address] [place] [phone] [id number] ADRIANA KAPADIA Self - patient is the insured Medical (General) History Medical History History ICD Code Cancer Problems with Anesthesia
--- OUTSIDE RECORDS SUMMARY | 2024-12-10 07:20 | XMS_ITS | CCD ---
Author Organization [facility] Care Team Providers Care Ent Physician Name Role Phone LOIDA, DR SVETA Adan Primary Care Unavailable MARISCAL, DR SVETA Adan Admitting Unavailable MARISCAL, DR SVETA Adan Attending Unavailable MARISCAL, DR SVETA Adan Consulting Unavailable GRILLIS, DR VALENTINA Adan Consulting Unavailabl e MARISCAL, DR SVETA Adan Primary Care Unavailable GRILLIS, DR VALENTINA Adan Admitting Unavailabl e GRLAUREENS, DR VALENTINA Adan Attending Unavailabl e MARISCAL, DR SVETA Adan Primary Care Unavailable SHEA, DR VALENTINA Adan Admitting Unavailabl e RAMIREZ, EMY Consulting Unavailable GRILLIS, DR VALENTINA Adan Attending Unavailabl e GRILLIS, DR VALENTINA Adan Admitting Unavailabl e MARISCAL, DR SVETA Adan Primary Care Unavailable GRILLIS, DR VALENTINA Adan Attending Unavailabl e SHEA, DR VALENTINA Adan Consulting Unavailabl e BUDDY, SEAN JANSEN Consulting Unava ilable GEMBUS, BOZENA Consulting Unavailable MARISCAL, DR SVETA Adan Primary Care Unavailable [employer], DR MICHELLE Hart Consulting Unavailable MARISCAL, DR SVETA Adan Admitting Unavailable MARISCAL, DR SVETA Adan Attending Unavailable RAGHU, DR CARVALHO Consulting Unavailable MARISCAL, DR SVETA Adan Consulting Unavailable Mariscal, Sveta Fletcher Allergies Allergy Classification Reported Allergen(s) Allergy Type Date of Onset Reaction(s) Facility (2 sources) patient allergy list reviewed by nurse or physicia Propensity to adverse reactions Comment:Done Experiment Other (2 sources) Allergies Reconciled Propensity to adverse reactions Unknown Experiment Other Medications Current Medications Medication Drug Class(es) Dates Sig (Normalized) Sig (Original) azithromycin 250 mg oral tablet (1 source) Macrolide Antimicrobial Start: 07-11-2023 Azithromycin 250 MG as directed Orally 2 tabs po today, then 1 tab daily x 4 more days for 5 Jun, Active Calcium (3 sources) Phosphate Binder, Calcium Calcium + D Active calcium citrate 1040 mg oral tablet (2 sources) Start: 09-11-2023 take 2 tablets by mouth once daily Calcium Citrate 250 mg calcium tablet Active 500 MG PO Daily September 11, 2023 12:00am Start: 09-11-2023 take 500 mg by mouth once zulema y Calcium Citrate Active 500 MG PO Daily September 11, 2023 12:00am cetirizine hydrochloride 10 mg oral tablet (2 sources) Histamine-1 Receptor Antagonist Start: 09-11-2023 take 1 tablet by mouth once daily as needed Cetirizine (Zyrtec) 10 mg tablet Active 10 MG PO Daily as needed September 11, 2023 12:00am levothyroxine sodium 0.05 mg oral tablet (8 sources) l-Thyroxine Start: 02-04-2024 End: 07-31-2024 Levothyroxine 50 mcg tablet Active 0 .ROUTE .COMPLEX July 31, 2024 11:22am TAKE 1 TABLET IN THE MORNING ON AN EMPTY STOMACH ONCE A DAY Start: 08-07-2023 End: 02-04-2024 take 1 tablet by mouth once daily in the morning Levothyroxine 50 mcg tablet Discontinued 50 MCG PO Daily August 07, 2023 3:35pm February 04, 2024 8:33am [employer] tablet in the morning on an empty stomach Orally Once a day; Note: Source Status: Taking; Refills: 1; Provider: Loida Adan take 1 tablet by mirta once daily in the morning Synthroid 50 MCG 1 tablet in the morning on an empty stomach Orally Once a day for 30 days Active magnesium chloride 598 mg delayed release oral tablet (2 sources) Start: 09-11-2023 take 1 tablet by mouth once daily Magnesium Chloride 70 mg tablet,delayed release (DR/EC) Active 70 MG PO Daily September 11, 2023 12:00am Completed/Discontinued Medications Medication Drug Class(es) Dates Sig (Normalized) Sig (Original) fluticasone propionate 0.05 mg/actuat metered dose nasal spray (5 sources) Corticosteroid Start: 09-10-2023 End: 09-11-2023 take 1 spray(s) nasal route once daily Fluticasone Propionate 50 mcg/actuation spray,suspension Discontinued 1 SPRAY INTRANASAL Daily September 10, [...] Episodic Other aftercare (1 source) 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; Translations: [OTH CARE HOME CURRENT DRUG THERAPY] Onset: 06-01-2022 Episodic Other [...] NICOTINE DEPEND] Onset: 06-01-2022 Episodic Thyroid disorders (8 sources) Hypothyroidism, unspecified; Translations: [Hypothyroidism] Onset: 08-17-2021 [...] Range Facility Basophils Auto (Bld) [#/Vol] on 09-01-2024 Basophils (Bld) [#/Vol] Automated basophil count 0.0-0.1 [facility] Basophils/100 WBC Auto (Bld) on 09-01-2024 Basophils/100 WBC (Bld) Automated basophil % 0.2-2.0 [facility] Eosinophils/100 WBC Auto (Bl d)on 09-01-2024 Eosinophils/100 WBC (Bld) Automated eosinophil % 0.9-7.0 [facility] Erythrocyte distribution wid th Auto (RBC) [Ratio]on 09-01-2024 Erythrocyte distribution width (RBC) [Ratio] Erythrocyte distribution width [Ratio] by Automated count 11.0-15.0 [facility] Estimated glomerular filtrat ion rate (GFR) non- Americanon 09-01-2024 GFR/1.73 sq M.predicted among non-blacks MDRD (S/P/Bld) [Vol rate/Area] Estimated glomerular filtration rate (GFR) non- Low >=60 mL/min/1.73m 2 [facility] Globulin Calc (S) [Mass/Vol] on 09-01-2024 Globulin (S) [Mass/Vol] Serum globulin measurement by calculation (mass/volume) [facility] Hematocrit Auto (Bld) [Volum e fraction]on 09-01-2024 Hematocrit (Bld) [Volume fraction] Hematocrit [Volume Fraction] of Blood by Automated count 36.0-48.0 [facility] Hemoglobin [Mass/volume] in Bloodon 09-01-2024 Hemoglobin (Bld) [Mass/Vol] Hemoglobin [Mass/volume] in Blood 12.0-16.0 [facility] Laboratory - Chemistry and C hemistry - challengeon 09-01-2024 Albumin [Mass/Vol] 3.7 g/dL 3.4-5.0 [facility] ALP [Catalytic activity/Vol] 97 U/L 46-116 [facility] ALT [Catalytic activity/Vol] 15 U/L 14-59 [facility] AST [Catalytic activity/Vol] 16 U/L 15-37 [facility] Bilirubin [Mass/Vol] 0.4 mg/dL 0.2-1.0 [facility] Calcium [Mass/Vol] 9.2 mg/dL 8.5-10.1 [facility] Chloride [Moles/Vol] 106 mmol/L 98-107 [facility] CO2 [Moles/Vol] 31.0 mmol/L 21.0-32.0 [facility] Creatinine [Mass/Vol] 1.01 mg/dL 0.55-1.02 [facility] Free T4 [Mass/Vol] 0.95 ng/dL 0.76-1.46 [facility] GFR/1.73 sq M.predicted MDRD (S/P/Bld) [Vol rate/Area] mL/min/{1.73_m2} >=60 mL/min/1.73m 2 [facility] Glucose [Mass/Vol] 87 mg/dL 74-106 [facility] Potassium [Moles/Vol] 3.9 mmol/L 3.5-5.1 [facility] Protein [Mass/Vol] 6.9 g/dL 6.4-8.2 [facility] Sodium [Moles/Vol] 143 mmol/L 136-145 [facility] TSH Qn 2.491 m[IU]/L 0.358-3.740 [facility] Urea nitrogen [Mass/Vol] 18.0 mg/dL 7.0-18.0 [facility] Urea nitrogen/Creatinine [Mass ratio] 17.8 mg/mg [facility] Laboratory - Hematology and Cell countson 09-01-2024 Immature granulocytes/100 WBC (Bld) 0.2 % 0.0-0.5 [facility] Leukocytes [#/volume] correc slava for nucleated erythrocytes in Blood by Automated counon 09-01-2024 WBC corrected for nucl RBC Auto (Bld) [#/Vol] Leukocytes [#/volume] corrected for nucleated erythrocytes in Blood by Automated coun 4.0-11.0 [facility] Lymphocytes Auto (Bld) [#/Vo l]on 09-01-2024 Lymphocytes (Bld) [#/Vol] Lymphocytes [#/volume] in Blood by Automated count 1.2-3.8 [facility] Lymphocytes/100 WBC Auto (Bl d)on 09-01-2024 Lymphocytes/100 WBC (Bld) Lymphocytes/100 leukocytes in Blood by Automated count 20.5-60.0 [facility] MCH Auto (RBC) [Entitic mass ]on 09-01-2024 MCH (RBC) [Entitic mass] MCH [Entitic mass] by Automated count 26.7-34.0 [facility] MCHC Auto (RBC) [Mass/Vol]on 09-01-2024 MCHC (RBC) [Mass/Vol] MCHC [Mass/volume] by Automated count 29.9-35.2 [facility] MCV Auto (RBC) [Entitic vol] on 09-01-2024 MCV (RBC) [Entitic vol] MCV [Entitic volume] by Automated count 81.0-99.0 [facility] Monocytes Auto (Bld) [#/Vol] on 09-01-2024 Monocytes (Bld) [#/Vol] Automated blood monocyte count 0.3-0.8 [facility] Monocytes/100 WBC Auto (Bld) on 09-01-2024 Monocytes/100 WBC (Bld) Automated monocyte % 1.7-12.0 [facility] Neutrophils Auto (Bld) [#/Vo l]on 09-01-2024 Neutrophils (Bld) [#/Vol] Neutrophils [#/volume] in Blood by Automated count 1.4-6.5 [facility] Neutrophils/100 WBC Auto (Bl d)on 09-01-2024 Neutrophils/100 WBC (Bld) Automated neutrophil % 43.0-75.0 [facility] No Panel Informationon 09-01 Eosinophils # (Auto) 0.1 10 3/uL 0.0-0.7 [facility] Immature Granulocyte # (Auto) 0.01 10 3/uL 0.00-0.03 [facility] Platelet mean volume Auto (B ld) [Entitic vol]on 09-01-2024 Platelet mean volume (Bld) [Entitic vol] Platelet mean volume [Entitic volume] in Blood by Automated count 9.5-13.5 [facility] Platelets Auto (Bld) [#/Vol] on 09-01-2024 Platelets (Bld) [#/Vol] Platelets [#/volume] in Blood by Automated count 150-450 [facility] RBC Auto (Bld) [#/Vol]on RBC (Bld) [#/Vol] Erythrocytes [#/volume] in Blood by Automated count 4.20-5.40 [facility] Serum or plasma albumin/glob ulin mass ratioon 09-01-2024 Albumin/Globulin [Mass ratio] Serum or plasma albumin/globulin mass ratio [facility] Serum or plasma anion gap de terminationon 09-01-2024 Anion gap [Moles/Vol] Serum or plasma anion gap determination [facility] Basophils Auto (Bld) [#/Vol] on 09-06-2023 Basophils (Bld) [#/Vol] 0.1 10 3/uL 0.0-0.1 [facility] Basophils/100 WBC Auto (Bld) on 09-06-2023 Basophils/100 WBC (Bld) 1.2 % 0.2-2.0 [facility] Cholesterol in LDL Calc [Mas s/Vol]on 09-06-2023 Cholesterol in LDL [Mass/Vol] 133.0 mg/dL [facility] Comment on above: <100 mg/dl [id number] 0-129 mg/dl NEAR OR ABOVE [id number] mg/dl BORDERLINE [id number] mg/dl HIGH>190 mg/dl VERY HIGH Cholesterol in VLDL Calc [Ma ss/Vol]on 09-06-2023 Cholesterol in VLDL [Mass/Vol] 21.8 mg/dL [facility] Eosinophils/100 WBC Auto (Bl d)on 09-06-2023 Eosinophils/100 WBC (Bld) 2.2 % 0.9-7.0 [facility] Erythrocyte distribution wid th Auto (RBC) [Ratio]on 09-06-2023 Erythrocyte distribution width (RBC) [Ratio] 14.0 % 11.0-15.0 [facility] Estimated glomerular filtrat ion rate (GFR) non- Americanon 09-06-2023 GFR/1.73 sq M.predicted among non-blacks MDRD (S/P/Bld) [Vol rate/Area] 54 mL/min/{1.73_m2} >=60 [facility] Globulin Calc (S) [Mass/Vol] on 09-06-2023 Globulin (S) [Mass/Vol] 3.5 g/dL [facility] Hematocrit Auto (Bld) [Volum e fraction]on 09-06-2023 Hematocrit (Bld) [Volume fraction] 43.8 % 36.0-48.0 [facility] Hemoglobin [Mass/volume] in Bloodon 09-06-2023 Hemoglobin (Bld) [Mass/Vol] 13.6 g/dL 12.0-16.0 [facility] Laboratory - Chemistry and C hemistry - challengeon 09-06-2023 Albumin [Mass/Vol] 3.7 g/dL 3.4-5.0 [facility] ALP [Catalytic activity/Vol] 81 U/L 46-116 [facility] ALT [Catalytic activity/Vol] 18 U/L 14-59 [facility] AST [Catalytic activity/Vol] 14 U/L 15-37 [facility] Bilirubin [Mass/Vol] 0.3 mg/dL 0.2-1.0 [facility] Calcium [Mass/Vol] 9.2 mg/dL 8.5-10.1 [facility] Chloride [Moles/Vol] 104 mmol/L 98-107 [facility] Cholesterol [Mass/Vol] 216 mg/dL <=200 [facility] Cholesterol in HDL [Mass/Vol] 62 mg/dL 40-60 [facility] Comment on above: > or =60 mg/dl - LOW CARDIOVASCULAR RISK<40 mg/dl - HIGH CARDIOVASCULAR RISK CO2 [Moles/Vol] 29.2 mmol/L 21.0-32.0 [facility] Creatinine [Mass/Vol] 1.04 mg/dL 0.55-1.02 [facility] GFR/1.73 sq M.predicted MDRD (S/P/Bld) [Vol rate/Area] mL/min/{1.73_m2} >=60 [facility] Glucose [Mass/Vol] 84 mg/dL 74-106 [facility] Potassium [Moles/Vol] 4.1 mmol/L 3.5-5.1 [facility] Protein [Mass/Vol] 7.2 g/dL 6.4-8.2 [facility] Sodium [Moles/Vol] 143 mmol/L 136-145 [facility] Triglyceride [Mass/Vol] 109 mg/dL <=150 [facility] TSH Qn 1.534 m[IU]/L 0.358-3.740 [facility] Urea nitrogen [Mass/Vol] 14.0 mg/dL 7.0-18.0 [facility] Urea nitrogen/Creatinine [Mass ratio] 13.5 mg/mg [facility] Laboratory - Hematology and Cell countson 09-06-2023 Immature granulocytes/100 WBC (Bld) 0.2 % 0.0-0.5 [facility] Leukocytes [#/volume] correc slava for nucleated erythrocytes in Blood by Automated counon 09-06-2023 WBC corrected for nucl RBC Auto (Bld) [#/Vol] 4.9 10 3/uL 4.0-11.0 [facility] Lymphocytes Auto (Bld) [#/Vo l]on 09-06-2023 Lymphocytes (Bld) [#/Vol] 1.9 10 3/uL 1.2-3.8 [facility] Lymphocytes/100 WBC Auto (Bl d)on 09-06-2023 Lymphocytes/100 WBC (Bld) 39.6 % 20.5-60.0 [facility] MCH Auto (RBC) [Entitic mass ]on 09-06-2023 MCH (RBC) [Entitic mass] 28.6 pg 26.7-34.0 [facility] MCHC Auto (RBC) [Mass/Vol]on 09-06-2023 MCHC (RBC) [Mass/Vol] 31.1 g/dL 29.9-35.2 [facility] MCV Auto (RBC) [Entitic vol] on 09-06-2023 MCV (RBC) [Entitic vol] 92.0 fL 81.0-99.0 [facility] Monocytes Auto (Bld) [#/Vol] on 09-06-2023 Monocytes (Bld) [#/Vol] 0.3 10 3/uL 0.3-0.8 [facility] Monocytes/100 WBC Auto (Bld) on 09-06-2023 Monocytes/100 WBC (Bld) 5.7 % 1.7-12.0 [facility] Neutrophils Auto (Bld) [#/Vo l]on 09-06-2023 Neutrophils (Bld) [#/Vol] 2.5 10 3/uL 1.4-6.5 [facility] Neutrophils/100 WBC Auto (Bl d)on 09-06-2023 Neutrophils/100 WBC (Bld) 51.1 % 43.0-75.0 [facility] No Panel Informationon 09-05 Eosinophils # (Auto) 0.1 10 3/uL 0.0-0.7 [facility] Immature Granulocyte # (Auto) 0.01 10 3/uL 0.00-0.03 [facility] Platelet mean volume Auto (B ld) [Entitic vol]on 09-06-2023 Platelet mean volume (Bld) [Entitic vol] 9.2 fL 9.5-13.5 [facility] Platelets Auto (Bld) [#/Vol] on 09-06-2023 Platelets (Bld) [#/Vol] 280 10 3/uL 150-450 [facility] RBC Auto (Bld) [#/Vol]on RBC (Bld) [#/Vol] 4.76 10 6/uL 4.20-5.40 [facility] Serum or plasma albumin/glob ulin mass ratioon 09-06-2023 Albumin/Globulin [Mass ratio] 1.1 {ratio} [facility] Serum or plasma anion gap de terminationon 09-06-2023 Anion gap [Moles/Vol] 13.9 mmol[facility] Serum or plasma total choles terol/high density lipoprotein (HDL) cholesterol mass elis 09-06-2023 Cholesterol.total/Cho lesterol in HDL [Mass ratio] 3.5 {ratio} [facility] Comment on above: 3.3 - 4.4 LOW RISK4. 4 - 7.1 AVERAGE RISK7.1 - 11.0 MODERATE RISK>11.0 HIGH RISK Covid-19 PCR (CVDTB)on SARS-CoV-2 (COVID-19) RNA LUDWIG+probe Ql (Unsp spec) Not detected Normal NOT DETECTED [facility] Comment on above: Result Comment: This test is not yet approved or cleared by the [place] FDA. When there are no FDA-approved or cleared tests available, and other criteria are met, FDA can make tests available under an emergency access mechanism called an Emergency Use Authorization (EUA). The EUA for this test is supported by the [place] of Health and Human Service's (HHS's) declaration [...] consistent with SARS-CoV-2. Performed By: #### C [facility] #### [facility] [address] [place] [address] Dr. Solange Allen MG MAMM SCREEN 3D KERI CADon 10-28-2021 MG MAMM SCREEN 3D KERI CAD Patient: AURELIA HARDEN Exam Date: 10/28/2021 : 1965 Gender:F Ordering : DR SVETA MARISCAL M.D. Admission #: [id number] Family : DR DEVEN KRISHNAMURTHY . Order #: [id number] CLICK HERE TO VIEW EXAM RADIOLOGY REPORT [...] breast cancer at age 86. LOCATION: [facility] BREAST COMPOSITION: Extremely dense, which lowers the [...] MD on 10/28/2021 at 08:26 Normal [facility] FREE T4on 08-15-2021 Free T4 [Mass/Vol] 0.92 ng/dL Normal 0.78-2.19 [facility] Comment on above: Performed By: #### F T4 #### [facility] [address] [address] [address] Solange Allen LIPID PROFILEon 08-15-2021 CHOL-HDL RATIO NORM SEE BELOW Normal [facility] Comment on above: Result Comment: 3.3 - 4.4 LOW RISK 4.4 - 7.1 AVERAGE RISK 7.1 - 11.0 MODERATE RISK >11.0 HIGH RISK Performed By: #### L IPID, TSH, CMP #### [facility] [address] [address] [address] Solange Allen Cholesterol [Mass/Vol] 192 mg/dL Normal <=200 [facility] Comment on above: Performed By: #### L IPID, TSH, CMP #### [facility] [address] [address] [address] Solange Allen Cholesterol in HDL [Mass/Vol] 59 mg/dL Normal [facility] Comment on above: Performed By: #### L IPID, TSH, CMP #### [facility] [address] [address] [address] Solange Allen Cholesterol in LDL [Mass/Vol] 118.8 mg/dL Normal [facility] Comment on above: Performed By: #### L IPID, TSH, CMP #### [facility] [address] [address] [address] Solange Allen Cholesterol.total/Cho lesterol in HDL [Mass ratio] 3.3 {ratio} Normal [facility] Comment on above: Performed By: #### L IPID, TSH, CMP #### [facility] [address] [address] [address] Solange Allen HDL NORMAL > or = 60 mg/dl - LOW CARDIOVASCULAR RISK <40 mg/dl - HIGH CARDIOVASCULAR RISK Normal [facility] Comment on above: Performed By: #### L IPID, TSH, CMP #### [facility] [address] [address] [address] Solange Allen LDL CALC NORMAL SEE BELOW Normal [facility] Comment on above: Result Comment: <100 mg/dl OPTIMAL 100 - 129 mg/dl NEAR OR ABOVE OPTIMAL 130 - 159 mg/dl BORDERLINE HIGH 160 - 189 mg/dl HIGH >190 mg/dl VERY HIGH Performed By: #### L IPID, TSH, CMP #### [facility] [address] [address] [address] Solange Allen Triglyceride [Mass/Vol] 71 mg/dL Normal <=150 [facility] Comment on above: Performed By: #### L IPID, TSH, CMP #### [facility] [address] [address] [address] Solange Allen VLDL CALC 14.2 mg/dL Normal [facility] Comment on above: Performed By: #### L IPID, TSH, CMP #### [facility] [address] [address] [address] Solange Allen PROF 14(COMP METB)on 022 Albumin [Mass/Vol] 3.9 g/dL Normal 3.5-5.0 [facility] Comment on above: Performed By: #### L IPID, TSH, CMP #### [facility] [address] [address] [address] Solange Allen Albumin/Globulin [Mass ratio] 1.1 {ratio} Normal [facility] Comment on above: Performed By: #### L IPID, TSH, CMP #### [facility] [address] [address] [address] Solange Allen ALP [Catalytic activity/Vol] 84 U/L Normal 38-126 [facility] Comment on above: Performed By: #### L IPID, TSH, CMP #### [facility] [address] [address] [address] Solange Allen ALT [Catalytic activity/Vol] 18 U/L Normal 9-52 [facility] Comment on above: Performed By: #### L IPID, TSH, CMP #### [facility] [address] [place] [address] Dr. Solange Allen Anion gap [Moles/Vol] 11.0 mmol/L Normal [facility] Comment on above: Performed By: #### L IPID, TSH, CMP #### [facility] [address] [address] [address] Solange Allen AST [Catalytic activity/Vol] 14 U/L Normal 14-36 [facility] Comment on above: Performed By: #### L IPID, TSH, CMP #### [facility] [address] [address] [address] Solange Allen Bilirubin [Mass/Vol] 0.3 mg/dL Normal 0.2-1.3 [facility] Comment on above: Performed By: #### L IPID, TSH, CMP #### [facility] [address] [address] [address] Solange Allen Calcium [Mass/Vol] 9.2 mg/dL Normal 8.4-10.2 [facility] Comment on above: Performed By: #### L IPID, TSH, CMP #### [facility] [address] [address] [address] Solange Allen Chloride [Moles/Vol] 106 mmol/L Normal 98-107 [facility] Comment on above: Performed By: #### L IPID, TSH, CMP #### [facility] [address] [place] [address] Dr. Solange Allen CO2 [Moles/Vol] 26.6 mmol/L Normal 22.0-30.0 [facility] Comment on above: Performed By: #### L IPID, TSH, CMP #### [facility] [address] [place] [address] Dr. Solange Allen Creatinine [Mass/Vol] 1.27 mg/dL Critically high 0.52-1.04 [facility] Comment on above: Performed By: #### L IPID, TSH, CMP #### [facility] [address] [place] [address] Dr. Solange Allen EGFR-AF GIBRALTARIAN 53 mL/min/1.73m2 Critically low >=60 [facility] Comment on above: Performed By: #### L IPID, TSH, CMP #### [facility] [address] [place] [address] Dr. Solange Allen EGFR-NON AF GIBRALTARIAN 43 mL/min/1.73m2 Critically low >=60 [facility] Comment on above: Performed By: #### L IPID, TSH, CMP #### [facility] [address] [place] [address] Dr. Solange Allen Globulin (S) [Mass/Vol] 3.4 g/dL Normal [facility] Comment on above: Performed By: #### L IPID, TSH, CMP #### [facility] [address] [place] [address] Dr. Solange Allen Glucose [Mass/Vol] 96 mg/dL Normal 74-106 [facility] Comment on above: Performed By: #### L IPID, TSH, CMP #### [facility] [address] [place] [address] Dr. Solange Allen Potassium [Moles/Vol] 4.6 mmol/L Normal 3.4-5.0 [facility] Comment on above: Performed By: #### L IPID, TSH, CMP #### [facility] [address] [place] [address] Dr. Solange Allen Protein [Mass/Vol] 7.3 g/dL Normal 6.1-8.2 [facility] Comment on above: Performed By: #### L IPID, TSH, CMP #### [facility] [address] [place] [address] Dr. Solange Allen Sodium [Moles/Vol] 139 mmol/L Normal 137-145 [facility] Comment on above: Performed By: #### L IPID, TSH, CMP #### [facility] [address] [place] [address] Dr. Solange Allen Urea nitrogen [Mass/Vol] 17.0 mg/dL Normal 7.0-17.0 [facility] Comment on above: Performed By: #### L IPID, TSH, CMP #### [facility] [address] [place] [address] Dr. Solange Allen Urea nitrogen/Creatinine [Mass ratio] 13.4 mg/mg Normal [facility] Comment on above: Performed By: #### L IPID, TSH, CMP #### [facility] [address] [place] [address] Dr. Solange Allen TSHon 08-15-2021 TSH 2.727 uIU/mL Normal 0.470-4.680 [facility] Comment on above: Performed By: #### L IPID, TSH, CMP #### [facility] [address] [place] [address] Dr. Solange Allen TSH RANGE SEE BELOW Normal [facility] Comment on above: Result Comment: <0.3 4 UIU/ml HYPERTHYROID 0.34-5.60 UIU/ml EUTHYROID >5.60 UIU/ml HYPOTHYROID Performed By: #### L IPID, TSH, CMP #### [facility] [address] [place] [address] Dr. Solange Allen Vital Signs Date Time Vital Sign Value Performing Clinician Facility 09-04-2024 08: Body height 170.18 cm [facility] 09-04-2024 08:040 Body mass index (BMI) [Ratio] 30.1 kg/m2 [facility] 09-04-2024 08:28-0400 Body weight 87.31 kg [facility] 09-04-2024 08:28-0400 Diastolic blood pressure 84 mm[Hg] [facility] 09-04-2024 08:28-0400 Heart rate 91 /min [facility] 09-04-2024 08:28-0400 Systolic blood pressure 117 mm[Hg] [facility] 09-11-2023 08:29-0400 Body height 170.18 cm [facility] 09-11-2023 08:29-0400 Body mass index (BMI) [Ratio] 29.4 kg/m2 [facility] 09-11-2023 08:29-0400 Body weight 85.27 kg [facility] 09-11-2023 08:29-0400 Diastolic blood pressure 67 mm[Hg] [facility] 09-11-2023 08:29-0400 Heart rate 82 /min [facility] 09-11-2023 08:29-0400 Systolic blood pressure 107 mm[Hg] [facility] 04-19-2023 13:00-0400 Body height 170.18 cm Sveta Mariscal Other Experiment Other 04-19-2023 13:00-0400 Body mass index (BMI) [Ratio] 29.44 kg/m2 Sveta Mariscal Other Experiment Other 04-19-2023 13:00-0400 Body weight 85.28 kg Sveta Mariscal Other Experiment Other 04-19-2023 13:00-0400 Diastolic blood pressure 65 mm[Hg] Sveta Mariscal Other Experiment Other 04-19-2023 13:00-0400 Systolic blood pressure 109 mm[Hg] Sveta Mariscal Other Experiment Other Encounters Encounter Date Encounter Type Care Provider Facility Start: 09-04-2024 End: 09-04-2024 ambulatory [facility] Work Phone: Start: 09-04-2024 End: 09-04-2024 Patient encounter procedure [facility] Work Phone: Start: 09-01-2024 Non-patient / Non-visit [facility] [place] Work Phone: Start: 09-11-2023 End: 09-11-2023 ambulatory [facility] Work Phone: Start: 09-11-2023 End: 09-11-2023 Patient encounter procedure [facility] Work Phone: Start: 09-06-2023 Non-patient / Non-visit [facility] [place] Work Phone: Start: 09-05-2023 Patient encounter status [facility] Start: 08-07-2023 Non-patient / Non-visit [facility] [place] Work Phone: Start: 07-11-2023 (Televisit) Televisit Sveta Mariscal [facility] Start: 07-11-2023 End: 07-11-2023 ambulatory Sveta Mariscal Other Experiment Other Start: 06-05-2023 End: 06-05-2023 ambulatory Sveta Mariscal Other Experiment Other Start: 06-05-2023 Telephone encounter Sveta Mariscal [facility] Start: 04-19-2023 End: 04-19-2023 ambulatory Sveta Mariscal Other Experiment Other Start: 04-19-2023 Encounter for genera l adult medical examination without abnormal findings Sveta Mariscal [facility] Start: 04-19-2023 Periodic preventive med est patient 40-64yrs Sveta Mariscal [facility] Start: 06-07-2022 Adult health examination Sary Mariscal Other Experiment Other Start: 05-27-2022 Encounter for preprocedural laboratory examination DR VALENTINA VALDIVIA [facility] Start: 05-24-2022 End: 05-24-[address] VALENTINA VALDIVIA Facility:[facility] Start: 05-19-2022 End: 05-20-[address] VALENTINA VALDIVIA Facility:[facility] Start: 05-19-2022 End: 05-20-2022 Encounter for preprocedural laboratory examination DR VALENTINA VALDIVIA Facility:[facility] Start: 05-15-2022 Encounter for other preprocedural examination DR VALENTINA VALDIVIA [facility] Start: 05-10-2022 End: 05-11-[address] SVETA MARISCAL Facility:[facility] Start: 05-10-2022 End: 05-11-2022 Encounter for other preprocedural examination DR SVETA MARISCAL Facility:[facility] Start: 10-28-2021 End: 10-29-[address] SVETA MARISCAL Facility:[facility] Start: 08-17-2021 Encounter for genera l adult medical examination without abnormal findings DR SVETA MARISCAL [facility] Start: 08-15-2021 End: 08-16-[address] SVETA MARISCAL Facility:[facility] Start: 08-15-2021 End: 08-16-2021 Encounter for general adult medical examination without abnormal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
== END 2024-12-10 07:18 | disposition home or self-care (01) ==
LOC: MAMMO 07:17
PROVIDERS: PCP Family Medicine; Visit Provider Obstetrics & Gynecology
DX: Z12.31 Encounter for screening mammogram for malignant neoplasm of breast (principal); Z80.42 Family history of malignant neoplasm of prostate; Z80.3 Family history of malignant neoplasm of breast
CPT/HCPCS: 77063; 77067

== ENCOUNTER 2025-02-17 09:40 | Outpatient (OUT) | payer OTHER, SELFPAY ==
--- NOTE | 2025-02-17 09:43 | US_ITS ---
US/US right upper quadrant IMPRESSION: MILD CHOLELITHIASIS, POLYPS AND/OR SLUDGE. NO OTHER ACUTE FINDINGS. Impression dictated by: Mone Warren M.D. 02/17/2025 10:20 AM Dictation Location: [place] [id number] Electronically authenticated by: [id number] Y Date: 02/17/2025 10:20
--- OUTSIDE RECORDS SUMMARY | 2025-02-17 09:52 | XMS_ITS | CCD ---
Author Organization [facility] Care Team Providers Care Applications Engineer Manufacturing Name Role Phone LOIDA, DR SVETA Adan Primary Care Unavailable MARISCAL, DR SVETA Adan Admitting Unavailable MARISCAL, DR SVETA Adan Attending Unavailable MARISCAL, DR SVETA Adan Consulting Unavailable GRILLIS, DR VALENTINA Adan Consulting Unavailabl e MARISCAL, DR SVETA Adan Primary Care Unavailable GRJOSE, DR VALENTINA Adan Admitting Unavailabl e GRJOSE, DR VALENTINA Adan Attending Unavailabl e MARISCAL, DR SVETA Adan Primary Care Unavailable SHEA, DR VALENTINA Adan Admitting Unavailabl e RAMIREZ, EMY Consulting Unavailable NATASHAS, DR VALENTINA Adan Attending Unavailabl e SHEA, DR VALENTINA Adan Admitting Unavailabl e MARISCAL, DR SVETA Adan Primary Care Unavailable GRILLIDeirdre, DR VALENTINA Adan Attending Unavailabl e SHEA, DR VALENTINA Adan Consulting Unavailabl e BUDDY, SEAN JANSEN Consulting Unava ilable GEMBUS, BOZENA Consulting Unavailable MARISCAL, DR SVETA Adan Primary Care Unavailable AMORET, DR MICHELLE Hart Consulting Unavailable MARISCAL, DR SVETA Adan Admitting Unavailable MARISCAL, DR SVETA Adan Attending Unavailable ELVA, DR CARVALHO Consulting Unavailable MARISCAL, DR SVETA Adan Consulting Unavailable Sveta Mariscal Unavailable Primary Care Provider Sveta Dominguez MD Primary Care Provider Sveta Mariscal MD Attending Provider [phone] Allergies Allergy Classification Reported Allergen(s) Allergy Type Date of Onset Reaction(s) Facility (2 sources) patient allergy list reviewed by nurse or physicia Propensity to adverse reactions 4 Comment:Done Vaprema Other (2 sources) Allergies Reconciled Propensity to adverse reactions Unknown Vaprema Other Medications Current Medications Medication Drug Class(es) Dates Sig (Normalized) Sig (Original) azithromycin 250 mg oral tablet (1 source) Macrolide Antimicrobial Start: 07-11-2023 Azithromycin 250 MG as directed Orally 2 tabs po today, then 1 tab daily x 4 more days for 5 Jun, Active Calcium (3 sources) Phosphate Binder, Calcium Calcium + D Active calcium citrate 1040 mg oral tablet (3 sources) Start: 09-11-2023 take 2 tablets by mouth once daily Calcium Citrate 250 mg calcium tablet Active 500 MG PO Daily September 11, 2023 12:00am Complies with drug therapy Start: 09-11-2023 take 500 mg by mouth once zulema y Calcium Citrate Active 500 MG PO Daily September 11, 2023 12:00am cetirizine hydrochloride 10 mg oral tablet (3 sources) Histamine-1 Receptor Antagonist Start: 09-11-2023 take 1 tablet by mouth once daily as needed Cetirizine (Zyrtec) 10 mg tablet Active 10 MG PO Daily as needed September 11, 2023 12:00am Complies with drug therapy levothyroxine sodium 0.05 mg oral tablet (14 sources) l-Thyroxine Start: 02-04-2024 End: 01-26-2025 Levothyroxine 50 mcg tablet Active 0 .ROUTE .COMPLEX January 26, 2025 9:31am TAKE 1 TABLET IN THE MORNING ON AN EMPTY STOMACH ONCE A DAY Complies with drug therapy Start: 08-07-2023 End: 02-04-2024 take 1 tablet [...] chloride 598 mg delayed release oral tablet (3 sources) Start: 09-11-2023 take 1 tablet by mouth once daily Magnesium Chloride 70 mg tablet,delayed release (DR/EC) Active 70 MG PO Daily September 11, 2023 12:00am Complies with drug therapy Completed/Discontinued Medications Medication Drug Class(es) Dates Sig (Normalized) Sig (Original) fluticasone propionate 0.05 mg/actuat metered dose nasal spray (6 sources) Corticosteroid Start: 09-10-2023 End: 09-11-2023 take [...] Classification Problem Date Documented Da te Episodic/Chronic Abdominal pain (4 sources) Right upper quadrant pain; Translations: [Right upper quadrant pain] 02-05-2025 Episodic Acute bronchitis (3 sources) Acute bronchitis; Translations: [...] [Residual hemorrhoidal skin tags] Onset: 06-01-2022 Episodic Osteoporosis (2 sources) Osteoporosis; Translations: [Age-related osteoporosis without current pathological fracture] 02-05-2025 Chronic Other aftercare (1 source) 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; Translations: [OTH CARE HOME CURRENT DRUG THERAPY] Onset: 06-01-2022 Episodic Other nutritional; endocrine; and metabolic disorders (6 sources) Body mass index 25-29 - overweight; Translations: [Body mass index 28.0-28.9, adult] Onset: 09-05-2017 Episodic Other screening for suspected conditions (not mental disorders or infectious disease) (5 sources) Encounter for screening mammogram for malignant neoplasm of breast; Translations: [Patient encounter status] Onset: 10-28-2021 Episodic Other upper respiratory infections (3 sources) [...] NICOTINE DEPEND] Onset: 06-01-2022 Episodic Thyroid disorders (9 sources) Hypothyroidism, unspecified; Translations: [Hypothyroidism] Onset: 08-17-2021 [...] Overweight; Translations: [Overweight] Onset: 09-05-2017 Episodic Other skin disorders (3 sources) Disorder [...] Test Name Value Interpretation Reference Range Facility MM TOMOSYNTHESIS SCREENING B Ion 12-10-2024 [place] [address] Mammography Report Signed Patient: AURELIA KAPADIA MR#: [id number] : 1965 Acct:[id number] Age/Sex: 59 / F ADM Date: 12/10/24 Loc: MAMMO Attending Dr: Deven Stevenson D.O. Ordering Physician: Deven Stevenson D.O. Results: Date of Service: 12/10/24 Follow Up: Procedure(s): MM tomosynthesis screening BI Accession Number(s): [id number] cc: Sveta Mariscal M.D.; Deven Stevenson D.O. Patient Name: AURELIA KAPADIA MR#: [id number] : 1965 Exam Date: 12/10/2024 Ordering Doctor: DR DEVEN STEVENSON . RADIOLOGY REPORT PROCEDURE: MM TOMOSYNTHESIS SCREENING BI COMPARISON: MM TOMOSYNTHESIS SCREENING BI, 11/28/2023. MM TOMOSYNTHESIS SCREENING BI, 11/22/2022. MG MAMM SCREEN 3D KERI CAD, 10/28/2021. MG MAMM KERI SCRN W CAD DIG, 06/13/2013. INDICATIONS: Screening Calculator Name NCI Breast Cancer Risk Assessment Tool 5 Year Breast Cancer Risk 1.90% Lifetime Breast Cancer Risk 8.90% Personal Breast Cancer No Personal Ovarian Cancer No Treatments None Family Cancers Grandfather-paternal with prostate cancer at age 70; Grandmother-maternal with breast cancer at age 88. LOCATION: [facility] BREAST COMPOSITION: The breasts are heterogeneously dense,which may obscure small masses. FINDINGS: DIAGNOSTIC CATEGORY 1--NEGATIVE. RIGHT BREAST: No significant suspicious finding. LEFT BREAST: No significant suspicious finding. RECOMMENDATIONS: ROUTINE MAMMOGRAM AND CLINICAL EVALUATION IN 12 MONTHS. PLEASE NOTE: A NORMAL MAMMOGRAM DOES NOT EXCLUDE THE POSSIBILITY OF BREAST CANCER. A CLINICALLY SUSPICIOUS PALPABLE LUMP SHOULD BE BIOPSIED. Dictated by: Cj Almeida DO on 12/10/2024 at 15:34 Approved by: Cj Almeida DO on 12/10/2024 at 15:35 Dictated By: Cj Almeida M.D. Signed By: 12/10/24 1536 DD/ 1535 TD/TT: Cath Lab: [facility] Radiology, Radiologist, MD - 12/10/2024 [place] [address] Mammography Report Signed Patient: AURELIA KAPADIA MR#: [id number] : 1965 Acct:[id number] Age/Sex: 59 / F ADM Date: 12/10/24 Loc: MAMMO Attending Dr: Deven Stevenson D.O. Ordering Physician: Deven Stevenson D.O. Results: Date of Service: 12/10/24 Follow Up: Procedure(s): MM tomosynthesis screening BI Accession Number(s): [id number] cc: Sveta Mariscal M.D.; Deven Stevenson D.O. Patient Name: AURELIA KAPADIA MR#: [id number] : 1965 Exam Date: 12/10/2024 Ordering Doctor: DR DEVEN STEVENSON . RADIOLOGY REPORT PROCEDURE: MM TOMOSYNTHESIS SCREENING BI COMPARISON: MM TOMOSYNTHESIS SCREENING BI, 11/28/2023. MM TOMOSYNTHESIS SCREENING BI, 11/22/2022. MG MAMM SCREEN 3D KERI CAD, 10/28/2021. MG MAMM KERI SCRN W CAD DIG, 06/13/2013. INDICATIONS: Screening Calculator Name NCI Breast Cancer Risk Assessment Tool 5 Year Breast Cancer Risk 1.90% Lifetime Breast Cancer Risk 8.90% Personal Breast Cancer No Personal Ovarian Cancer No Treatments None Family Cancers Grandfather-paternal with prostate cancer at age 70; Grandmother-maternal with breast cancer at age 88. LOCATION: [facility] BREAST COMPOSITION: The breasts are heterogeneously dense,which may obscure small masses. FINDINGS: DIAGNOSTIC CATEGORY 1--NEGATIVE. RIGHT BREAST: No significant suspicious finding. LEFT BREAST: No significant suspicious finding. RECOMMENDATIONS: ROUTINE MAMMOGRAM AND CLINICAL EVALUATION IN 12 MONTHS. PLEASE NOTE: A NORMAL MAMMOGRAM DOES NOT EXCLUDE THE POSSIBILITY OF BREAST CANCER. A CLINICALLY SUSPICIOUS PALPABLE LUMP SHOULD BE BIOPSIED. Dictated by: Cj Almeida DO on 12/10/2024 at 15:34 Approved by: Cj Almeida DO on 12/10/2024 at 15:35 Dictated By: Cj Almeida M.D. Signed By: 12/10/24 1536 DD/ 34 TD/TT: [facility] (narrative) [facility] [employer] MM TOMOSYNTHESIS SCREENING B IOrdered By: Radiologist Radiology on 12-10-2024 [facility]: Basophils Auto (Bld) [#/Vol] on 09-01-2024 Basophils (Bld) [#/Vol] Automated basophil count 0.0-0.1 [facility] Basophils/100 WBC Auto (Bld) on 09-01-2024 Basophils/100 WBC (Bld) Automated basophil % 0.2-2.0 [facility] Eosinophils/100 WBC Auto (Bl d)on 09-01-2024 Eosinophils/100 WBC (Bld) Automated eosinophil % 0.9-7.0 [facility] Erythrocyte distribution wid th Auto (RBC) [Ratio]on 09-01-2024 Erythrocyte distribution width (RBC) [Ratio] Erythrocyte distribution width [Ratio] by Automated count 11.0-15.0 [facility] Estimated glomerular filtrat ion rate (GFR) non- Americanon 09-01-2024 GFR/1.73 sq M.predicted among non-blacks MDRD (S/P/Bld) [Vol rate/Area] Estimated glomerular filtration rate (GFR) non- Low >=60 mL/min/1.73m 2 [facility] Globulin Calc (S) [Mass/Vol] on 09-01-2024 Globulin (S) [Mass/Vol] Serum globulin measurement by calculation (mass/volume) [facility] Hematocrit Auto (Bld) [Volum e fraction]on 09-01-2024 Hematocrit (Bld) [Volume fraction] Hematocrit [Volume Fraction] of Blood by Automated count 36.0-48.0 [facility] Hemoglobin [Mass/volume] in Bloodon 09-01-2024 Hemoglobin (Bld) [Mass/Vol] Hemoglobin [Mass/volume] in Blood 12.0-16.0 [facility] Laboratory - Chemistry and C hemistry - challengeon 09-01-2024 Albumin [Mass/Vol] 3.7 g/dL 3.4-5.0 [facility] ALP [Catalytic activity/Vol] 97 U/L 46-116 [facility] ALT [Catalytic activity/Vol] 15 U/L 14-59 [facility] AST [Catalytic activity/Vol] 16 U/L 15-37 [facility] Bilirubin [Mass/Vol] 0.4 mg/dL 0.2-1.0 [facility] Calcium [Mass/Vol] 9.2 mg/dL 8.5-10.1 [facility] Chloride [Moles/Vol] 106 mmol/L 98-107 [facility] CO2 [Moles/Vol] 31.0 mmol/L 21.0-32.0 [facility] Creatinine [Mass/Vol] 1.01 mg/dL 0.55-1.02 [facility] Free T4 [Mass/Vol] 0.95 ng/dL 0.76-1.46 [facility] GFR/1.73 sq M.predicted MDRD (S/P/Bld) [Vol rate/Area] mL/min/{1.73_m2} >=60 mL/min/1.73m 2 [facility] Glucose [Mass/Vol] 87 mg/dL 74-106 [facility] Potassium [Moles/Vol] 3.9 mmol/L 3.5-5.1 [facility] Protein [Mass/Vol] 6.9 g/dL 6.4-8.2 [facility] Sodium [Moles/Vol] 143 mmol/L 136-145 [facility] TSH Qn 2.491 m[IU]/L 0.358-3.740 [facility] Urea nitrogen [Mass/Vol] 18.0 mg/dL 7.0-18.0 [facility] Urea nitrogen/Creatinine [Mass ratio] 17.8 mg/mg [facility] Laboratory - Hematology and Cell countson 09-01-2024 Immature granulocytes/100 WBC (Bld) 0.2 % 0.0-0.5 [facility] Leukocytes [#/volume] correc slava for nucleated erythrocytes in Blood by Automated counon 09-01-2024 WBC corrected for nucl RBC Auto (Bld) [#/Vol] Leukocytes [#/volume] corrected for nucleated erythrocytes in Blood by Automated coun 4.0-11.0 [facility] Lymphocytes Auto (Bld) [#/Vo l]on 09-01-2024 Lymphocytes (Bld) [#/Vol] Lymphocytes [#/volume] in Blood by Automated count 1.2-3.8 [facility] Lymphocytes/100 WBC Auto (Bl d)on 09-01-2024 Lymphocytes/100 WBC (Bld) Lymphocytes/100 leukocytes in Blood by Automated count 20.5-60.0 [facility] MCH Auto (RBC) [Entitic mass ]on 09-01-2024 MCH (RBC) [Entitic mass] MCH [Entitic mass] by Automated count 26.7-34.0 [facility] MCHC Auto (RBC) [Mass/Vol]on 09-01-2024 MCHC (RBC) [Mass/Vol] MCHC [Mass/volume] by Automated count 29.9-35.2 [facility] MCV Auto (RBC) [Entitic vol] on 09-01-2024 MCV (RBC) [Entitic vol] MCV [Entitic volume] by Automated count 81.0-99.0 [facility] Monocytes Auto (Bld) [#/Vol] on 09-01-2024 Monocytes (Bld) [#/Vol] Automated blood monocyte count 0.3-0.8 [facility] Monocytes/100 WBC Auto (Bld) on 09-01-2024 Monocytes/100 WBC (Bld) Automated monocyte % 1.7-12.0 [facility] Neutrophils Auto (Bld) [#/Vo l]on 09-01-2024 Neutrophils (Bld) [#/Vol] Neutrophils [#/volume] in Blood by Automated count 1.4-6.5 [facility] Neutrophils/100 WBC Auto (Bl d)on 09-01-2024 Neutrophils/100 WBC (Bld) Automated neutrophil % 43.0-75.0 [facility] No Panel Informationon 09-01 Eosinophils # (Auto) 0.1 10 3/uL 0.0-0.[address] [facility] Immature Granulocyte # (Auto) 0.01 10 3/uL 0.00-0.03 [facility] Platelet mean volume Auto (B ld) [Entitic vol]on 09-01-2024 Platelet mean volume (Bld) [Entitic vol] Platelet mean volume [Entitic volume] in Blood by Automated count 9.5-13.5 [facility] Platelets Auto (Bld) [#/Vol] on 09-01-2024 Platelets (Bld) [#/Vol] Platelets [#/volume] in Blood by Automated count 150-450 [facility] RBC Auto (Bld) [#/Vol]on RBC (Bld) [#/Vol] Erythrocytes [#/volume] in Blood by Automated count 4.20-5.40 [facility] Serum or plasma albumin/glob ulin mass ratioon 09-01-2024 Albumin/Globulin [Mass ratio] Serum or plasma albumin/globulin mass ratio [facility] Serum or plasma anion gap de terminationon 09-01-2024 Anion gap [Moles/Vol] Serum or plasma anion gap determination [facility] Basophils Auto (Bld) [#/Vol] on 09-06-2023 Basophils (Bld) [#/Vol] 0.1 10 3/uL 0.0-0.1 [facility] Basophils/100 WBC Auto (Bld) on 09-06-2023 Basophils/100 WBC (Bld) 1.2 % 0.2-2.0 [facility] Cholesterol in LDL Calc [Mas s/Vol]on 09-06-2023 Cholesterol in LDL [Mass/Vol] 133.0 mg/dL [facility] Comment on above: <100 mg/dl [id number] 0-129 mg/dl NEAR OR ABOVE [id number] mg/dl BORDERLINE [id number] mg/dl HIGH>190 mg/dl VERY HIGH Cholesterol in VLDL Calc [Ma ss/Vol]on 09-06-2023 Cholesterol in VLDL [Mass/Vol] 21.8 mg/dL [facility] Eosinophils/100 WBC Auto (Bl d)on 09-06-2023 Eosinophils/100 WBC (Bld) 2.2 % 0.9-7.0 [facility] Erythrocyte distribution wid th Auto (RBC) [Ratio]on 09-06-2023 Erythrocyte distribution width (RBC) [Ratio] 14.0 % 11.0-15.0 [facility] Estimated glomerular filtrat ion rate (GFR) non- Americanon 09-06-2023 GFR/1.73 sq M.predicted among non-blacks MDRD (S/P/Bld) [Vol rate/Area] 54 mL/min/{1.73_m2} >=60 [facility] Globulin Calc (S) [Mass/Vol] on 09-06-2023 Globulin (S) [Mass/Vol] 3.5 g/dL [facility] Hematocrit Auto (Bld) [Volum e fraction]on 09-06-2023 Hematocrit (Bld) [Volume fraction] 43.8 % 36.0-48.0 [facility] Hemoglobin [Mass/volume] in Bloodon 09-06-2023 Hemoglobin (Bld) [Mass/Vol] 13.6 g/dL 12.0-16.0 [facility] Laboratory - Chemistry and C hemistry - challengeon 09-06-2023 Albumin [Mass/Vol] 3.7 g/dL 3.4-5.0 [facility] ALP [Catalytic activity/Vol] 81 U/L 46-116 [facility] ALT [Catalytic activity/Vol] 18 U/L 14-59 [facility] AST [Catalytic activity/Vol] 14 U/L 15-37 [facility] Bilirubin [Mass/Vol] 0.3 mg/dL 0.2-1.0 [facility] Calcium [Mass/Vol] 9.2 mg/dL 8.5-10.1 [facility] Chloride [Moles/Vol] 104 mmol/L 98-107 [facility] Cholesterol [Mass/Vol] 216 mg/dL <=200 [facility] Cholesterol in HDL [Mass/Vol] 62 mg/dL 40-60 [facility] Comment on above: > or =60 mg/dl - LOW CARDIOVASCULAR RISK<40 mg/dl - HIGH CARDIOVASCULAR RISK CO2 [Moles/Vol] 29.2 mmol/L 21.0-32.0 [facility] Creatinine [Mass/Vol] 1.04 mg/dL 0.55-1.02 [facility] GFR/1.73 sq M.predicted MDRD (S/P/Bld) [Vol rate/Area] mL/min/{1.73_m2} >=60 [facility] Glucose [Mass/Vol] 84 mg/dL 74-106 [facility] Potassium [Moles/Vol] 4.1 mmol/L 3.5-5.1 [facility] Protein [Mass/Vol] 7.2 g/dL 6.4-8.2 [facility] Sodium [Moles/Vol] 143 mmol/L 136-145 [facility] Triglyceride [Mass/Vol] 109 mg/dL <=150 [facility] TSH Qn 1.534 m[IU]/L 0.358-3.740 [facility] Urea nitrogen [Mass/Vol] 14.0 mg/dL 7.0-18.0 [facility] Urea nitrogen/Creatinine [Mass ratio] 13.5 mg/mg [facility] Laboratory - Hematology and Cell countson 09-06-2023 Immature granulocytes/100 WBC (Bld) 0.2 % 0.0-0.5 [facility] Leukocytes [#/volume] correc slava for nucleated erythrocytes in Blood by Automated counon 09-06-2023 WBC corrected for nucl RBC Auto (Bld) [#/Vol] 4.9 10 3/uL 4.0-11.0 [facility] Lymphocytes Auto (Bld) [#/Vo l]on 09-06-2023 Lymphocytes (Bld) [#/Vol] 1.9 10 3/uL 1.2-3.8 [facility] Lymphocytes/100 WBC Auto (Bl d)on 09-06-2023 Lymphocytes/100 WBC (Bld) 39.6 % 20.5-60.0 [facility] MCH Auto (RBC) [Entitic mass ]on 09-06-2023 MCH (RBC) [Entitic mass] 28.6 pg 26.7-34.0 [facility] MCHC Auto (RBC) [Mass/Vol]on 09-06-2023 MCHC (RBC) [Mass/Vol] 31.1 g/dL 29.9-35.2 [facility] MCV Auto (RBC) [Entitic vol] on 09-06-2023 MCV (RBC) [Entitic vol] 92.0 fL 81.0-99.0 [facility] Monocytes Auto (Bld) [#/Vol] on 09-06-2023 Monocytes (Bld) [#/Vol] 0.3 10 3/uL 0.3-0.8 [facility] Monocytes/100 WBC Auto (Bld) on 09-06-2023 Monocytes/100 WBC (Bld) 5.7 % 1.7-12.0 [facility] Neutrophils Auto (Bld) [#/Vo l]on 09-06-2023 Neutrophils (Bld) [#/Vol] 2.5 10 3/uL 1.4-6.5 [facility] Neutrophils/100 WBC Auto (Bl d)on 09-06-2023 Neutrophils/100 WBC (Bld) 51.1 % 43.0-75.0 [facility] No Panel Informationon 09-05 Eosinophils # (Auto) 0.1 10 3/uL 0.0-0.[address] [facility] Immature Granulocyte # (Auto) 0.01 10 3/uL 0.00-0.03 [facility] Platelet mean volume Auto (B ld) [Entitic vol]on 09-06-2023 Platelet mean volume (Bld) [Entitic vol] 9.2 fL 9.5-13.5 [facility] Platelets Auto (Bld) [#/Vol] on 09-06-2023 Platelets (Bld) [#/Vol] 280 10 3/uL 150-450 [facility] RBC Auto (Bld) [#/Vol]on RBC (Bld) [#/Vol] 4.76 10 6/uL 4.20-5.40 [facility] Serum or plasma albumin/glob ulin mass ratioon 09-06-2023 Albumin/Globulin [Mass ratio] 1.1 {ratio} [facility] Serum or plasma anion gap de terminationon 09-06-2023 Anion gap [Moles/Vol] 13.9 mmol/L [facility] Serum or plasma total choles terol/high density lipoprotein (HDL) cholesterol mass elis 09-06-2023 Cholesterol.total/Ch olesterol in HDL [Mass ratio] 3.5 {ratio} [facility] Comment on above: 3.3 - 4.4 LOW RISK4. 4 - 7.1 AVERAGE RISK7.1 - 11.0 MODERATE RISK>11.0 HIGH RISK Covid-19 PCR (CVDTB)on SARS-CoV-2 (COVID-19) RNA LUDWIG+probe Ql (Unsp spec) Not detected Normal NOT DETECTED [facility] Comment on above: Result Comment: This test is not yet approved or cleared by the [place] FDA. When there are no FDA-approved or cleared tests available, and other criteria are met, FDA can make tests available under an emergency access mechanism called an Emergency Use Authorization (EUA). The EUA for this test is supported by the [employer] of Health and Human Service's (HHS's) declaration [...] consistent with SARS-CoV-2. Performed By: #### C VDTBH #### [facility] [address] [place] [id number] Solange Allen MG MAMM SCREEN 3D KERI CADon 10-28-2021 MG MAMM SCREEN 3D KERI CAD Patient: AURELIA KAPADIA Exam Date: 10/28/2021 : 1965 Gender:F Ordering : DR SVETA MARISCAL M.D. Admission #: [id number] Family : DR DEVEN STEVENSON . Order #: [id number] CLICK HERE TO VIEW EXAM RADIOLOGY REPORT [...] breast cancer at age 86. LOCATION: [facility] BREAST COMPOSITION: Extremely dense, which lowers the [...] MD on 10/28/2021 at 08:26 Normal [facility] FREE T4on 08-15-2021 Free T4 [Mass/Vol] 0.92 ng/dL Normal 0.78-2.19 [facility] Comment on above: Performed By: #### F T4 #### [facility] [address] [place], [place] [address] Dr. Solange Allen LIPID PROFILEon 08-15-2021 CHOL-HDL RATIO NORM SEE BELOW Normal [facility] Comment on above: Result Comment: 3.3 - 4.4 LOW RISK 4.4 - 7.1 AVERAGE RISK 7.1 - 11.0 MODERATE RISK >11.0 HIGH RISK Performed By: #### L IPID, TSH, CMP #### [facility] [address] [place], [place] [address] Dr. Solange Allen Cholesterol [Mass/Vol] 192 mg/dL Normal <=200 [facility] Comment on above: Performed By: #### L IPID, TSH, CMP #### [facility] [address] [place] [address] [address] Solange Allen Cholesterol in HDL [Mass/Vol] 59 mg/dL Normal [facility] Comment on above: Performed By: #### L IPID, TSH, CMP #### [facility] [address] [place] [address] [address] Solange Allen Cholesterol in LDL [Mass/Vol] 118.8 mg/dL Normal [facility] Comment on above: Performed By: #### L IPID, TSH, CMP #### [facility] [address] [place] [address] [address] Solange Allen Cholesterol.total/Ch olesterol in HDL [Mass ratio] 3.3 {ratio} Normal [facility] Comment on above: Performed By: #### L IPID, TSH, CMP #### [facility] [address] [place] [address] [address] Solange Allen HDL NORMAL > or = 60 mg/dl - LOW CARDIOVASCULAR RISK <40 mg/dl - HIGH CARDIOVASCULAR RISK Normal [facility] Comment on above: Performed By: #### L IPID, TSH, CMP #### [facility] [address] [place] [address] [address] Solange Allen LDL CALC NORMAL SEE BELOW Normal [facility] Comment on above: Result Comment: <100 mg/dl OPTIMAL 100 - 129 mg/dl NEAR OR ABOVE OPTIMAL 130 - 159 mg/dl BORDERLINE HIGH 160 - 189 mg/dl HIGH >190 mg/dl VERY HIGH Performed By: #### L IPID, TSH, CMP #### [facility] [address] [place] [address] [address] Solange Allen Triglyceride [Mass/Vol] 71 mg/dL Normal <=150 [facility] Comment on above: Performed By: #### L IPID, TSH, CMP #### [facility] [address] [place] [address] [address] Solange Allen VLDL CALC 14.2 mg/dL Normal [facility] Comment on above: Performed By: #### L IPID, TSH, CMP #### [facility] [address] [place] [address] [address] Solange Allen PROF 14(COMP METB)on 022 Albumin [Mass/Vol] 3.9 g/dL Normal 3.5-5.0 [facility] Comment on above: Performed By: #### L IPID, TSH, CMP #### [facility] [address] [place] [address] [address] Solange Allen Albumin/Globulin [Mass ratio] 1.1 {ratio} Normal [facility] Comment on above: Performed By: #### L IPID, TSH, CMP #### [facility] [address] [address] [address] Solange Allen ALP [Catalytic activity/Vol] 84 U/L Normal 38-126 [facility] Comment on above: Performed By: #### L IPID, TSH, CMP #### [facility] [address] [address] [address] Solange Allen ALT [Catalytic activity/Vol] 18 U/L Normal 9-52 [facility] Comment on above: Performed By: #### L IPID, TSH, CMP #### [facility] [address] [address] [address] Solange Allen Anion gap [Moles/Vol] 11.0 mmol/L Normal [facility] Comment on above: Performed By: #### L IPID, TSH, CMP #### [facility] [address] [address] [address] Solange Allen AST [Catalytic activity/Vol] 14 U/L Normal 14-36 [facility] Comment on above: Performed By: #### L IPID, TSH, CMP #### [facility] [address] [address] [address] Solange Allen Bilirubin [Mass/Vol] 0.3 mg/dL Normal 0.2-1.3 [facility] Comment on above: Performed By: #### L IPID, TSH, CMP #### [facility] [address] [address] [address] Solange Allen Calcium [Mass/Vol] 9.2 mg/dL Normal 8.4-10.2 [facility] Comment on above: Performed By: #### L IPID, TSH, CMP #### [facility] [address] [place] [address] Dr. Solange Allen Chloride [Moles/Vol] 106 mmol/L Normal 98-107 [facility] Comment on above: Performed By: #### L IPID, TSH, CMP #### [facility] [address] [place] [address] Dr. Solange Allen CO2 [Moles/Vol] 26.6 mmol/L Normal 22.0-30.0 [facility] Comment on above: Performed By: #### L IPID, TSH, CMP #### [facility] [address] [place] [address] Dr. Solange Allen Creatinine [Mass/Vol] 1.27 mg/dL Critically high 0.52-1.04 [facility] Comment on above: Performed By: #### L IPID, TSH, CMP #### [facility] [address] [place] [address] Dr. Solange Allen EGFR-AF SRI LANKAN 53 mL/min/1.73m2 Critically low >=60 [facility] Comment on above: Performed By: #### L IPID, TSH, CMP #### [facility] [address] [place] [address] Dr. Solange Allen EGFR-NON AF SRI LANKAN 43 mL/min/1.73m2 Critically low >=60 [facility] Comment on above: Performed By: #### L IPID, TSH, CMP #### [facility] [address] [address] [address] Solange Allen Globulin (S) [Mass/Vol] 3.4 g/dL Normal [facility] Comment on above: Performed By: #### L IPID, TSH, CMP #### [facility] [address] [place] [address] Dr. Solange Allen Glucose [Mass/Vol] 96 mg/dL Normal 74-106 [facility] Comment on above: Performed By: #### L IPID, TSH, CMP #### [facility] [address] [place] [address] Dr. Solange Allen Potassium [Moles/Vol] 4.6 mmol/L Normal 3.4-5.0 [facility] Comment on above: Performed By: #### L IPID, TSH, CMP #### [facility] [address] [place] [address] Dr. Solange Allen Protein [Mass/Vol] 7.3 g/dL Normal 6.1-8.2 [facility] Comment on above: Performed By: #### L IPID, TSH, CMP #### [facility] [address] [place] [address] Dr. Solaneg Allen Sodium [Moles/Vol] 139 mmol/L Normal 137-145 [facility] Comment on above: Performed By: #### L IPID, TSH, CMP #### [facility] [address] [place] [address] Dr. Solange Allen Urea nitrogen [Mass/Vol] 17.0 mg/dL Normal 7.0-17.0 [facility] Comment on above: Performed By: #### L IPID, TSH, CMP #### [facility] [address] [place] [address] Dr. Solange Allen Urea nitrogen/Creatinine [Mass ratio] 13.4 mg/mg Normal [facility] Comment on above: Performed By: #### L IPID, TSH, CMP #### [facility] [address] [place] [address] Dr. Solange Allen TSHon 08-15-2021 TSH 2.727 uIU/mL Normal 0.470-4.680 [facility] Comment on above: Performed By: #### L IPID, TSH, CMP #### [facility] [address] [place], [place] [address] Dr. Solange Allen TSH RANGE SEE BELOW Normal [facility] Comment on above: Result Comment: <0.3 4 UIU/ml HYPERTHYROID 0.34-5.60 UIU/ml EUTHYROID >5.60 UIU/ml HYPOTHYROID Performed By: #### L IPID, TSH, CMP #### [facility] [id number] Solange Allen Vital Signs Date Time Vital Sign Value Performing Clinician Facility 02-05-2025 10:47-0400 Body height 170.18 cm Sveta Mariscal MD Work Phone: [facility] 02-05-2025 10:47-0400 Body mass index (BMI) [Ratio] 30.4 kg/m2 Sveta Mariscal MD Work Phone: [facility] 02-05-2025 10:47-0400 Body weight 87.99 kg Sveta Mariscal MD Work Phone: [facility] 02-05-2025 10:47-0400 Diastolic blood pressure 75 mm[Hg] Sveta Mariscal MD Work Phone: [facility] 02-05-2025 10:47-0400 Heart rate 79 /min Sveta Mariscal MD Work Phone: [facility] 02-05-2025 10:47-0400 Systolic blood pressure 112 mm[Hg] Sveta Mariscal MD Work Phone: [facility] 09-04-2024 08:28-0400 Body height 170.18 cm [facility] 09-04-2024 08:28-0400 Body mass index (BMI) [Ratio] 30.1 kg/m2 [facility] 09-04-2024 08:28-0400 Body weight 87.31 kg [facility] 09-04-2024 08:28-0400 Diastolic blood pressure 84 mm[Hg] [facility] 09-04-2024 08:28-0400 Heart rate 91 /min [facility] 09-04-2024 08:28-0400 Systolic blood pressure 117 mm[Hg] [facility] 09-11-2023 08:29-0400 Body height 170.18 cm [facility] 09-11-2023 08:29-0400 Body mass index (BMI) [Ratio] 29.4 kg/m2 [facility] 09-11-2023 08:29-0400 Body weight 85.27 kg [facility] 09-11-2023 08:29-0400 Diastolic blood pressure 67 mm[Hg] [facility] 09-11-2023 08:29-0400 Heart rate 82 /min [facility] 09-11-2023 08:29-0400 Systolic blood pressure 107 mm[Hg] [facility] 04-19-2023 13:00-0400 Body height 170.18 cm Sveta Mariscal Other [facility] [employer] Other 04-19-2023 13:00-0400 Body mass index (BMI) [Ratio] 29.44 kg/m2 Sveta Mariscal Other [facility] [employer] Other 04-19-2023 13:00-0400 Body weight 85.28 kg Sveta Mariscal Other [facility] Other 04-19-2023 13:00-0400 Diastolic blood pressure 65 mm[Hg] Sveta Mariscal Other [facility] Other 04-19-2023 13:00-0400 Systolic blood pressure 109 mm[Hg] Sveta Mariscal Other [facility] [employer] Other Encounters Encounter Date Encounter Type Care Provider Facility Start: 02-05-2025 End: 02-05-2025 ambulatory Sveta Mariscal MD Work Phone: [facility] Work Phone: Start: 02-05-2025 End: 02-05-2025 Patient encounter procedure Sveta Mariscal MD -[facility] Work Phone: Start: 12-10-2024 End: 12-10-2024 Clinisync Result Encounter Deven Elva DO Work Phone: [facility] Unsolicited Start: 12-10-2024 End: 12-10-2024 [employer]inis[employer] Result Encounter Deven Elva DO Work Phone: [facility] External [facility] Unsolicited Start: 09-04-2024 End: 09-04-2024 ambulatory [facility] Work Phone: Start: 09-04-2024 End: 09-04-2024 Patient encounter procedure [facility] Work Phone: Start: 09-01-2024 Non-patient / Non-visit [facility] Work Phone: Start: 09-11-2023 End: 09-11-2023 ambulatory [facility] Work Phone: Start: 09-11-2023 End: 09-11-2023 Patient encounter procedure [facility] Work Phone: Start: 09-06-2023 Non-patient / Non-visit [facility] Work Phone: Start: 09-05-2023 Patient encounter status [facility] Start: 08-07-2023 Non-patient / Non-visit [facility] Work Phone: Start: 07-11-2023 (Televisit) Televisit Sveta Vo [facility] Start: 07-11-2023 End: 07-11-2023 ambulatory Sveta Mariscal Other [facility] Other Start: 06-05-2023 End: 06-05-2023 ambulatory Sveta Mariscal Other [facility] Other Start: 06-05-2023 Telephone encounter Sveta Mariscal [facility] Start: 04-19-2023 End: 04-19-2023 ambulatory Sveta Mariscal Other [facility] Other Start: 04-19-2023 Encounter for genera l adult medical examination without abnormal findings Sveta Mariscal [facility] Start: 04-19-2023 Periodic preventive med est patient 40-64yrs Sv[address] Mariscal [facility] Start: 06-07-2022 Adult health examination Sary Mariscal Other [facility] Other Start: 05-27-2022 Encounter for preprocedural laboratory examination DR VALENTINA VALDIVIA [facility] Start: 05-24-2022 End: 05-24-[address] VALENTINA VALDIVIA Facility:[facility] Start: 05-19-2022 End: 05-20-[address] VALENTINA VALDIVIA Facility:[facility] Start: 05-19-2022 End: 05-20-2022 Encounter for preprocedural laboratory examination DR VALENTINA VALDIVIA Facility:[facility] Start: 05-15-2022 Encounter for other preprocedural examination DR VALENTINA VALDIVIA [facility] Start: 05-10-2022 End: 05-11-[address] SVETA MARISCAL Facility:[facility] Start: 05-10-2022 End: 05-11-2022 Encounter for other preprocedural examination DR SVETA MARISCAL Facility:[facility] Start: 10-28-2021 End: 10-29-[address] SVETA MARISCAL Facility:[facility] Start: 08-17-2021 Encounter for genera l adult medical examination without abnormal findings DR SVETA MARISCAL [facility] Start: 08-15-2021 End: 08-16-[address] SVETA MARISCAL Facility:[facility] Start: 08-15-2021 End: 08-16-2021 Encounter for general adult medical examination without abnormal findings DR SVETA MARISCAL Facility:[facility] Start: 02-15-2016 Gynecological examin ation normal Sveta Mariscal Other [facility] Other Procedures Date Procedure Procedure Detail Performing Clinician Start: 12-10-2024 MM TOMOSYNTHESIS CHINMAY Stevenson DO Work Phone: Plan of Treatment Date Care Activity Detail Author CT Abdomen and Pelvis WO contrast [facility] DXA Skeletal system. axial Views for bone density [facility] Payers Date Payer Category Payer Unknown [id number] 1965 Unknown [id number] 1965 Unknown [id number] 1963 Unknown [id number] 1965 Unknown [id number] 1961 Private Health Insurance [id number] Private Health Insurance [employer] [id number] Social History Date Type Detail Facility Unknown if ever smoked [facility] Other Sex Assigned At [facility] [employer] Other Start: 1965 Sex Assigned At Female [facility] Start: 09-04-2024 Sex Female (finding) [facility] Start: 1965 Sex assigned at Not on file [facility] Evaluation note 07-11-2023 Note Date & Type [...] verbalized understanding and agreement with treatment plan. [facility] Other Evaluation note 06-05-2023 Note Date & Type Note Facility 06-05-2023 Evaluation note Encounter Date Diagnosis Assessment Notes May, Hypothyroidism, unspecified type (ICD-10 - E03.9) [facility] Other Evaluation note 04-19-2023 Note Date & [...] We will call patient with x-ray results. [facility] Other Evaluation note Note Date & Type Note Facility Evaluation note No assessment information availa ble [facility] Work Phone: Evaluation note Note Date & Type Note Facility Evaluation note Diagnosis Onset Date Resolution Osteoporosis acute February 05, 2025 10:44am Right flank pain acute January 172024 10:44am RUQ abdominal pain acute February 05, 2025 10:44am [facility] Work Phone: History general Narrative - [...] History HYSTERECTOMY Hospitalization History [facility] in [employer]th [employer] Other Reason for referral (narrative) Note Date & Type Note Facility Reason for referral (narrative) No reason for referral information available [facility] Work Phone: Summary Purpose Family History Relationship Condition Age at Onset Recorded Date/T shannon father Heart disease Unknown Advance Directives Advance Directive Response Recorded Date/ Time Advance Directives No September 02 024 12:03pm Chief Complaint and Reason for Visit Chief Complaint Amb Documentation Wellness-New Insurance/Per Work Place Chief Complaint Admit Date Wellness September 04, 2024 8:2 2am Chief Complaint Admit Date back/side pain February 05, 2025 10 :44am Reason for Visit Admit Date Osteoporosis February 05, 2025 10 :44am Right flank pain February 05, 2025 10 :44am RUQ abdominal pain February 05, 2025 10 :44am Additional Source Comments INFORMATION SOURCE (unrecogn ized section and content) DATE CREATED AUTHOR 06/08/2022 [facility] REASON FOR VISIT (unrecogniz ed section and content) [employer]- [phone] Care Teams (unrecognized sec tion and content) Team Status: Active Member Role Status Dates Sveta Mariscal MD Primary Care Provider Active Team Status: Inactive Member Role Status Dates Sveta Mariscal MD Primary Care Provider Active Start: February 05, 2025 End: February 05, 2025 Sveta Mariscal MD Attending Provider Active St art: February 05, 2025 End: February 05, 2025 Team Status: Active Member Role Status Dates Sveta Mariscal MD Primary Care Provider Active Team Status: Active Member Role Status Dates Abdelrahman rBown DO Primary Care Provider Active Start: August [...] 2024 Team Status: Inactive Member Role Status Dates Sveta Mariscal MD Primary Care Provide r, Attending Provider Active Start: September 04, 2024 End: September 04, 2024 Team Status: Inactive Member Role Status Dates Sveta Mariscal MD Primary Care Provider Active Start: February 05, 2025 End: February 05, 2025 Sveta Mariscal MD Attending Provider Active St art: February 05, 2025 End: February 05, 2025 Goals (unrecognized section and content) Goals may [...] BE BASED ON THE PRIMARY CLINICAL RECORDS. [facility] provides no warranty or guarantee of the accuracy or completeness of information in this document.
== END 2025-02-17 09:41 | disposition home or self-care (01) ==
LOC: US 09:40
PROVIDERS: PCP Family Medicine; Visit Provider Family Medicine
DX: R10.11 Right upper quadrant pain (principal); R10.9 Unspecified abdominal pain; M81.0 Age-related osteoporosis without current pathological fracture; K80.20 Calculus of gallbladder without cholecystitis without obstruction; M85.88 Other specified disorders of bone density and structure, other site
CPT/HCPCS: 76705; 77080

== ENCOUNTER 2025-03-09 11:13 | Outpatient (OUT) | payer OTHER, SELFPAY ==
--- OUTSIDE RECORDS SUMMARY | 2024-12-01 04:40 | XMS_ITS ---
Author Organization [facility] Address [address] [place] [address] Care Team Providers Care Meter/Relay Craftsman Name Role Phone Preston Zepeda Unavailable [phone] Self, Referral Unavailable Unavailable REASON FOR VISIT LEFT HAND PAIN, LEFT HEEL Encounters Encounter Location Date Provider Diagnosis [facility] [facility] [address] [facility] [place] [address] [place] [address] 12/01/2024 Preston Zepeda Plan Of Treatment No Information Progress Notes * ADRIANA KAPADIA LDOB:[birth year] (59 yo F)Acc No.[id number]:12/01/2024 Patient: Deirdre BURKETT ADRIANA Portillo Provider: Deirdre Zepeda MD :1965 A ge:59 Y S ex:Female Date:12/01/2024 Address:[address] [place], [place] [id number] Subjective: * Chief Complaints: * 1 . LEFT HAND PAIN, LEFT HEEL. * Medical History: Objective: * Vitals: Assessment: Plan: * Treatment: Forms: * Images: * Electronic signature of Guy Zepeda MD on 03/09/2025 at 11:17 AM EDT Sign off status: Pending * Provider: Deirdre Zepeda MD Date: 12/01/2024 Generated for Printi ng/Faxing/eTransmitting on: 03/09/2025 11:17 AM EDT
--- OUTSIDE RECORDS SUMMARY | 2025-03-09 11:16 | XMS_ITS | Clinical Summary ---
Author Organization [employer] Address [id number] [address] [place] [address] Care Team Providers Care Director Of Music Therapy Name Role Phone Sveta Flores MD Primary Care Provider [phone] Allergies No known active allergies Medications calcium carbonate-vitami n D3 (OSCAL 500 + D) 500 mg(1,250mg) -200 units per tablet Take 1 tablet by mouth in the morning and 1 tablet in the evening. Take with meals. Active cetirizine (ZyrTEC) 5 mg tablet Take 1 tablet (5 mg total) by mouth in the morning. Active UNABLE TO FIND daily. [facility] gummies Active hydrocortisone (HYTONE) 2.5 % cream Apply 1 application topically in the morning and 1 application before bedtime. Active hydrocortisone-p ramoxine (ANALPRAM-HC) 2.5-1 % lotion Apply topically 3 (three) times a day. Active methylPREDNISolo ne (MEDROL, MARTHA,) 4 mg tablet Take 1 tablet (4 mg total) by mouth in the morning and 1 tablet (4 mg total) before bedtime. 2 Active lidocaine (XYLOCAINE) 5 % ointment Apply 1 application topically as needed for pain. Active silver sulfADIAZINE (SILVADENE) 1 % cream Apply 1 application topically in the morning. 25 g 2 Active Active Problems Problem Noted Date Diagnosed Date Hx of squamous cell carcinoma 06/18/2022 Overview (07/14/2022): RT SHOULDER 06/2022, @ [facility] Encounters Date Type Department Care Team Description 02/27/2025 Telephone [facility] [address] [place] [address] Johny Rodriguez DO from Last 3 Months Family History Medical History Relation Name Comments Heart disease Father Hypertension Mother Relation Name Status Comments Father Alive Mother Alive Social History Tobacco Use Types Packs/Day Years Used Date Smoking Tobacco: Former Smokeless Tobacco: Never Tobacco Cessation:Counseling Given: Not Answered Comments:20s social smoker Alcohol Use Standard Drinks/Week Comments Yes 0 (1 standard drink = 0.6 oz pur e alcohol) social Childcare Answer Date Recorded Childcare Unknown 11/27/2018 Employment Answer Date Recorded Employment Unknown 11/27/2018 Hunger Screening Answer Date Recorded Within the past 12 months we worried whether our food would run out before we got money to buy more. Never True 06/02/2022 Within the past 12 months th e food we bought just didn't last and we didn't have money to get more. Never True 06/02/2022 Purpose - Life Answer Date Recorded Purpose and direction in life Unknown Comments No Sex and Gender Information Value Date Recorded Sex Assigned at Not on file Legal Sex Female 11:44 AM EDT Gender Identity Not on file Sexual Orientation Not on file Last Filed Vital Signs Vital Sign Reading Time Taken Comments Blood Pressure 116/78 06/02/2022 8:44 AM EST Pulse - - Temperature 36.9 C (98.4 F) 07/14/2022 10:02 AM EST Respiratory Rate - - Oxygen Saturation - - Inhaled Oxygen Concentration - - Weight 83.5 kg (184 lb) 07/14/2022 10:02 AM EST Height 170.2 cm (5' 7 ) 07/14/2022 10:02 AM EST Body Mass Index 28.82 07/14/2022 10:02 AM EST Plan of Treatment Upcoming Encounters Date Type Department Care Team (Late st Contact Info) Description 03/11/2025 9:45 AM EDT Office Visit [facility] [address] [place] [id number] Johny Rodriguez DO [address] [place] [address] Health Maintenance Due Date Last Done Comments Depression Screening 1975 Tobacco Screening 1977 DTaP,Tdap and Td Vaccines (1 - Tdap) 06/02/199905/18 Zoster (Shingles) Vaccine (1 of 2) 09/11/2013 Adult BMI Screening 07/14/2023 07/14/2022 COVID-19 Vaccine ( - season) 02/16/202502/2021, 08/28/2020 Influenza Vaccine 02/16/2025 Colonoscopy 05/24/2032 05/24/2022 Medical Devices Not on file Insurance [employer] Care Teams Director Of Music Therapy Relationship Specialty Start Date End Date Sveta Flores MD [address] [place] [address] PCP - General 11/20/17
--- OUTSIDE RECORDS SUMMARY | 2025-03-09 11:16 | XMS_ITS | Clinical Summary ---
Author Organization [facility] Address [address] [place] [address] Care Team Providers Care Community Relations Coordinator Name Role Phone Cam Acosta Primary Care Provider [phone] Medications PREMARIN 2.5 MG ORAL TAB Take [...] 09/11/2013 Shingrix Vaccine (1 of 2) 09/11/2013 Influenza Vaccine (#1) 2025 RSV Vaccine (1 - 1-dose 75+ series) 09/11/2038 Procedures Procedure Name Priority Date/Time Associated Diagnosis Comments COMPREHENSIVE METABOLIC PANEL Routine 10/26/2004 10:07 AM EDT Benign Higinio Pituitary from Last 3 Months or Most Recently Relevant to Health Maintenance Results * (ABNORMAL) COMP METABOLIC PANEL (10/26/2004 10:07 AM EDT) Protein, Total 7.7 6.0 - 8.4 g/dL [facility] Albumin 4.9 3.5 - 5.0 g/dL [facility] Calcium 10.2 8.5 - 10.5 mg/dL [facility] Bilirubin, Total 0.3 0.0 - 1.5 mg/dL [facility] Alkaline Phosphatase 71 40 - 150 U/L [facility] AST 19 7 - 40 U/L [facility] Glucose 89 65 - 100 mg/dL [facility] BUN 16 8 - 25 mg/dL [facility] Creatinine 1.0 0.7 - 1.4 mg/dL [facility] Sodium 144 132 - 148 mmol/L [facility] Potassium 4.8 3.5 - 5.0 mmol/L [facility] Chloride 105 98 - 110 mmol/L [facility] CO2 19(A) 23 - 32 mmol/L [facility] Anion Gap 20(A) 0 - 15 mmol/L [facility] ALT 10 0 - 45 U/L [facility] Blood specimen (specimen) BLOOD SPECIMEN / Unknown 10/26/2004 10:07 AM EDT us Amir (Hist) [facility] Final R esult [facility] [address] [place] [address] from Last 3 Months or Most Recently Relevant to Health Maintenance Insurance [employer]UE [employer] PPO Care Teams Community Relations Coordinator Relationship Specialty Start Date End Date Cam Acosta [address] [place] [address] PCP - General 10/04/04
--- OUTSIDE RECORDS SUMMARY | 2025-03-09 11:16 | XMS_ITS | Clinical Summary ---
Author Organization [facility] Address [address] [place] [address] Care Team Providers Care Service Order Clerk Name Role Phone Unavailable Primary Care Provider Unavailabl e Encounters Date Type Department Care Team Description 12/10/2024 Clinisync Result Encounter [facility] External Department Unsolicited Deven Stevenson DO from Last 3 Months Social History Tobacco Use Types Packs/Day Years [...] - Plan of Treatment Not on file Procedures Procedure Name Priority Date/Time Associated Diagnosis Comments MM TOMOSYNTHESIS SCREENING BI 12/10/2024 3:35 PM EDT from Last 3 Months Results * MM TOMOSYNTHESIS SCREENING BI (12/10/2024 3:35 PM EDT) Anatomical Region Laterality Modality Other 12/10/2024 3:35 PM EDT Narrative 12/10/2024 3:36 PM EDT The [address] [address] Mammography Report Signed Patient: AURELIA HARDEN MR#: [id number] : 1965 Acct:[id number] Age/Sex: 59 / F ADM Date: 12/10/24 Loc: MAMMO Attending Dr: Deven Stevenson D.O. Ordering Physician: Deven Stevenson D.O. Results: Date of Service: 12/10/24 Follow Up: Procedure(s): MM tomosynthesis screening BI Accession Number(s): [id number] cc: Sveta Flores M.D.; Deven Stevenson D.O. Patient Name: AURELIA HARDEN MR#: [id number] : 1965 Exam Date: 12/10/2024 Ordering Doctor: [...] breast cancer at age 86. LOCATION: [facility] BREAST COMPOSITION: The breasts are heterogeneously dense,which [...] Signed By: 12/10/24 1536 DD/ 34 TD/TT: [employer] Specialist: Procedure Note Radiology, Radiologist, MD - 12/10/2024 [place] [address] Mammography Report Signed Patient: AURELIA HARDEN LMR#: [id number] : 1965Acct:[id number] Age/Sex: 59 / FADM Date: 12/10/24 Loc: MAMMO Attending Dr: Deven Stevenson D.O. Ordering Physician: Deven Stevenson D.O.Results: Date of Service: 12/10/24Follow Up: Procedure(s): MM tomosynthesis screening BI Accession Number(s): [id number] cc: Sveta Flores M.D.; Deven Stevenson D.O. Patient Name: AURELIA HARDEN MR#: [id number] : 1965 Exam Date: 12/10/2024 Ordering Doctor: DR DEVEN STEVENSON . RADIOLOGY REPORT PROCEDURE: MM TOMOSYNTHESIS SCREENING BI COMPARISON: MM TOMOSYNTHESIS SCREENING BI, 11/28/2023. MMTOMOSYNTHESIS SCREENING BI, 11/22/2022. MG MAMM SCREEN 3D KERI CAD, 10/28/2021. MG MAMMBIL SCRN W CAD DIG, 06/13/2013. INDICATIONS: Screening Calculator Name NCI Breast Cancer Risk Assessment Tool 5 Year Breast Cancer Risk 1.90% Lifetime Breast Cancer Risk 8.90% Personal Breast Cancer No Personal Ovarian Cancer No Treatments None Family Cancers Grandfather-paternal with prostate cancer at age 70; Grandmother-maternal with breast cancer at age 88. LOCATION: [facility] BREAST COMPOSITION: The breasts are heterogeneously dense,which may obscure small masses. FINDINGS: DIAGNOSTIC CATEGORY 1--NEGATIVE. RIGHT BREAST: No significant suspicious finding. LEFT BREAST: No significant suspicious finding. RECOMMENDATIONS: ROUTINE MAMMOGRAM AND CLINICAL EVALUATION IN 12 MONTHS. PLEASE NOTE: A NORMAL MAMMOGRAM DOES NOT EXCLUDE THE POSSIBILITY OFBREAST CANCER. A CLINICALLY SUSPICIOUS PALPABLE LUMP SHOULD BE BIOPSIED. Dictated by: Cj Almeida DO on 12/10/2024 at 15:34 Approved by: Cj Almeida DO on 12/10/2024 at 15:35 Dictated By: Cj Almeida M.D. Signed By:12/10/24 1536 DD/ 1535 TD/TT: [employer] Specialist: us Deven Stevenson DO [facility] Final Result from Last 3 Months
--- OUTSIDE RECORDS SUMMARY | 2025-03-09 11:16 | XMS_ITS | Encounter Summary ---
Author Organization [employer] [facility] Address [id number] [address] [place] [address] Care Team Providers Care Production Line Manager Name Role Phone Sveta Flores MD Primary Care Provider [phone] Encounter Details Date Type Department Care Team (Late st Contact Info) Description 02/27/2025 Telephone [facility] [address] [place] [address] Johny Rodriguez DO [address] [phone] Social History Tobacco Use Types Packs/Day Years Used Date Smoking Tobacco: Former Smokeless Tobacco: Never Comments:20s social smoker Alcohol Use Standard Drinks/Week [...] on file Sexual Orientation Not on file documented as of this encounter Miscellaneous Notes * Telephone Encounter - Bess Lino - 02/27/2025 1:29 PM EDT Called patient in regard to RUQ pain referral received from Dr. Flores. Left message on patients voicemail to call the office back to schedule an appointment as I was unable to make contact. * Telephone Encounter - Whit Potts - 02/27/2025 1:29 PM EDT Aurelia called the office back and we scheduled her an appointment on 03/11/[address] Rodriguez. documented in this encounter Plan of Treatment Upcoming Encounters Date Type Department Care Team (Late st Contact Info) Description 03/11/2025 9:45 AM EDT Office Visit [facility] [address] [place] [phone] Johny Rodriguez DO [address] [place] [address] documented as of this encounter Visit Diagnoses Not on filedocumented in this encounter Care Teams Production Line Manager Relationship Specialty Start Date End Date Sveta Flores MD [address] [place] [id number] PCP - General 11/20/17 documented as of this encounter
--- NOTE | 2025-03-09 11:18 | CT_ITS ---
The [address] [address] Patient Name: ADRIANA KAPADIA MRN: [id number] date: 1965 Sex: F Assigned Patient Location: CT Current Patient Location: CT Accession/Order Number: [id number] Exam Date: 03/09/2025 11:30 Report Date: 03/09/2025 12:04 At the request of: KRANTHI MARISCAL MD Procedure: CT abdomen pelvis wo con CT ABDOMEN AND PELVIS WITHOUT CONTRAST CLINICAL DATA: Right upper quadrant and flank pain COMPARISON: Ultrasound 02/17/2025 Spiral images were obtained through the abdomen and pelvis without intravenous contrast. Patient did receive oral contrast. This CT exam was performed using one or more following dose reduction techniques: Automated exposure control, adjustment of the mA and/or kV according to patient size, or use of iterative reconstruction technique. Limited cuts through the lung bases show no contributory findings. Evaluation of the intra-abdominal organs is slightly limited by the absence of contrast. No calcified gallstones are identified. No intrahepatic masses are seen. The spleen, pancreas and adrenal glands show no acute findings. A punctate stone is present at the upper pole of the left kidney. There is no hydronephrosis. No ureteral dilatation or stones are seen. The abdominal aorta is normal caliber. There are tiny retroperitoneal and small mesenteric lymph nodes. No ascites is seen. There is a tiny umbilical hernia containing fat. No dilated small bowel loops are present. There is a small amount of colonic stool on the right. The left colon is decompressed. Left-sided colonic diverticula are visualized. There is levoscoliotic curvature and mild degenerative changes at the spine. Images through the pelvis show normal caliber small bowel loops. The remainder of the colon is decompressed. There are additional descending and sigmoid diverticula. No active inflammation is seen. The appendix and uterus are surgically absent. The urinary bladder is suboptimally distended for assessment. There is no ascites. CT/CT abdomen pelvis wo con IMPRESSION: LEFT NEPHROLITHIASIS. NO BOWEL OR URINARY TRACT OBSTRUCTION. DIVERTICULOSIS. Impression dictated by: Mone Warren M.D. 03/09/2025 12:04 PM Dictation Location: [facility] Electronically authenticated by: [id number] Y Date: 03/09/2025 12:04
--- OUTSIDE RECORDS SUMMARY | 2025-03-09 11:19 | XMS_ITS | CCD ---
Author Organization [facility] Care Team Providers Care Child Care Specialist Name Role Phone LOIDA, DR SVETA Adan [...] MARISCAL, DR SVETA Adan Primary Care Unavailable HARWOOD, DR MICHELLE Hart Consulting Unavailable MARISCAL, DR SVETA Adan Admitting Unavailable MARISCAL, DR SVETA Adan Attending Unavailable RAGHU, DR CARVALHO Consulting Unavailable MARISCAL, DR SVETA Adan Consulting Unavailable Sveta Mariscal Unavailable Primary Care Provider Sveta Dominguez MD Primary Care Provider [phone] Sveta Mariscal MD Attending Provider [phone] Allergies Allergy Classification Reported Allergen(s) Allergy Type Date of Onset Reaction(s) Facility (2 sources) patient allergy list reviewed by nurse or physicia Propensity to adverse reactions 4 Comment:Done Evalve Other (2 sources) Allergies Reconciled Propensity to adverse reactions Unknown Evalve Other Medications Current Medications Medication Drug Class(es) Dates Sig (Normalized) Sig (Original) azithromycin 250 mg oral tablet (1 source) Macrolide Antimicrobial Start: 07-11-2023 Azithromycin 250 MG as directed Orally 2 tabs po today, then 1 tab daily x 4 more days for 5 Jun, Active Calcium (3 sources) Phosphate Binder, Calcium Calcium + D Active calcium citrate 1040 mg oral tablet (4 sources) Start: 09-11-2023 take 2 tablets by mouth once daily Calcium Citrate 250 mg calcium tablet Active 500 MG PO Daily September 11, 2023 12:00am Complies with drug therapy Start: 09-11-2023 take 500 mg by mouth once zulema y Calcium Citrate Active 500 MG PO Daily September 11, 2023 12:00am cetirizine hydrochloride 10 mg oral tablet (4 sources) Histamine-1 Receptor Antagonist Start: 09-11-2023 take 1 tablet by mouth once daily as needed Cetirizine (Zyrtec) 10 mg tablet Active 10 MG PO Daily as needed September 11, 2023 12:00am Complies with drug therapy magnesium chloride 598 mg delayed release oral tablet (4 sources) Start: 09-11-2023 take 1 tablet by mouth once daily Magnesium Chloride 70 mg tablet,delayed release (DR/EC) Active 70 MG PO Daily September 11, 2023 12:00am Complies with drug therapy Completed/Discontinued Medications Medication Drug Class(es) Dates Sig (Normalized) Sig (Original) fluticasone propionate 0.05 mg/actuat metered dose nasal spray (7 sources) Corticosteroid Start: 09-10-2023 End: 09-11-2023 take [...] Active levothyroxine sodium 0.05 mg oral tablet (20 sources) l-Thyroxine Start: 02-04-2024 End: 01-26-2025 Levothyroxine 50 mcg tablet Discontinued 0 .ROUTE .COMPLEX October 27, 2024 11:22am January 26, 2025 9:31am TAKE 1 TABLET [...] Loida Adan take 1 tablet by mirta th once daily in the morning Synthroid 50 MCG 1 tablet in the morning on an empty stomach Orally Once a day for 30 days Active Problems Active Problems Problem Classification Problem Date Documented Da te Episodic/Chronic Abdominal pain (8 sources) Right upper quadrant pain; Translations: [Right upper quadrant pain] 02-05-2025 Episodic Acute bronchitis (3 sources) Acute bronchitis; Translations: [Acute bronchitis, unspecified] Episodic Allergic reactions (3 sources) Contact dermatitis; Translations: [Unspecified contact dermatitis, unspecified cause] Episodic Biliary tract disease (1 source) Biliary calculus; Translations: [Calculus of gallbladder without cholecystitis without obstruction] 02-26-2025 Episodic Cancer; other and unspecified primary (3 [...] hemorrhoidal skin tags] Onset: 06-01-2022 Episodic Osteoporosis (4 sources) Osteoporosis; Translations: [Age-related osteoporosis without current pathological fracture] 02-05-2025 Chronic Other aftercare (1 source) Other termite technician (current) drug therapy; Translations: [OTH CORRECTION CURRENT DRUG THERAPY] Onset: 06-01-2022 Episodic Other nutritional; endocrine; and metabolic disorders (6 sources) Body mass index 25-29 - overweight; Translations: [Body mass index 28.0-28.9, adult] Onset: 09-05-2017 Episodic Other screening for suspected conditions (not mental disorders or infectious disease) (6 sources) Encounter for screening mammogram for malignant [...] NICOTINE DEPEND] Onset: 06-01-2022 Episodic Thyroid disorders (10 sources) Hypothyroidism, unspecified; Translations: [Hypothyroidism] Onset: 08-17-2021 Chronic Unclassified (1 source) CONTACT W/AND (SUSP) EXPOS COVID-19; Translations: [CONTACT W/AND (SUSP) EXPOS COVID-19] Onset: 05-27-2022 Unclassified (1 source) R10.11 - Right upper quadrant pain,K80.20 - Calculus of gallbladder without cholecystitis without obstruction Past or Other Problems Problem Classification Problem [...] Test Name Value Interpretation Reference Range Facility Laboratory - Chemistry and C hemistry - challengeOrdered By: Sveta Mariscal on 02-05-2025 Bilirubin Ql (U) Negative [facility] Glucose (U) [Mass/Vol] Negative [facility] Ketones Ql (U) Negative [facility] pH (U) 5 [pH] [facility] Specific gravity (U) [Rel density] 1.000 [facility] Urobilinogen (U) [Mass/Vol] 0.2 mg/dL [facility] Laboratory - Specimen inform ationOrdered By: Sveta Mariscal on 02-05-2025 Appearance (U) clear [facility] Color (U) maricruz [facility] Laboratory - UrinalysisOrder ed By: Sveta Mariscal on 02-05-2025 Leukocyte esterase Test strip Ql (U) Negative [facility] Nitrite Ql (U) Negative [facility] Protein Ql (U) Negative [facility] No Panel InformationOrdered By: Sveta Mariscal on 08-21-2025 Urine Occult Blood Negative [facility] MM TOMOSYNTHESIS SCREENING B Ion 12-10-2024 [address] [place] [id number] Mammography Report Signed Patient: AURELIA KAPADIA MR#: [id number] : 1965 Acct:[id number] Age/Sex: 59 / F ADM Date: 12/10/24 Loc: MAMMO Attending Dr: Deven Stevenson D.O. Ordering Physician: Deven Stevenson D.O. Results: Date of Service: 12/10/24 Follow Up: Procedure(s): MM tomosynthesis screening BI Accession Number(s): [id number] cc: Sveta Mariscal M.D.; Deven Stevenson D.O. Patient Name: AURELIA KAPADIA MR#: [id number] : 1965 Exam Date: 12/10/2024 Ordering Doctor: [...] Ovarian Cancer No Treatments None Family Cancers Grandfather-paterna l with prostate cancer at age 70; Grandmother-materna l with breast cancer at age 88. LOCATION: [facility] BREAST COMPOSITION: The breasts are heterogeneously [...] Signed By: 12/10/24 1536 DD/ 1535 TD/TT: Rn Palliative Care: [facility] Radiology, Radiologist, MD - 12/10/2024 [place] [address] Mammography Report Signed Patient: AURELIA KAPADIA MR#: [id number] : 1965 Acct:[id number] Age/Sex: 59 / F ADM Date: 12/10/24 Loc: MAMMO Attending Dr: Deven Stevenson D.O. Ordering Physician: Deven Stevenson D.O. Results: Date of Service: 12/10/24 Follow Up: Procedure(s): MM tomosynthesis screening BI Accession Number(s): [id number] cc: Sveta Mariscal M.D.; Deven Stevenson D.O. Patient Name: AURELIA KAPADIA MR#: [id number] : 1965 Exam Date: 12/10/2024 Ordering Doctor: [...] Ovarian Cancer No Treatments None Family Cancers Grandfather-paterna l with prostate cancer at age 70; Grandmother-materna l with breast cancer at age 88. LOCATION: [facility] BREAST COMPOSITION: The breasts are heterogeneously [...] Dictated By: Cj Almeida M.D. Signed By: 12/10/241535 DD/ 34 TD/TT: Rn Palliative Care: [facility] Radiology Study observation (narrative) [facility] MM TOMOSYNTHESIS SCREENING B IOrdered By: Radiologist Radiology on 12-10-2024 [facility] Work Phone: Basophils Auto (Bld) [#/Vol] on 09-01-2024 Basophils (Bld) [#/Vol] Automated basoph il count 0.0-0.1 [facility] Basophils/100 WBC Auto (Bld) on 09-01-2024 Basophils/100 WBC (Bld) Automated basoph il % 0.2-2.0 [facility] Eosinophils/100 WBC Auto (Bl d)on 09-01-2024 Eosinophils/100 WBC (Bld) Automated eosinophil % 0.9-7.0 [facility] Erythrocyte distribution wid th Auto (RBC) [Ratio]on 09-01-2024 Erythrocyte distribution width (RBC) [Ratio] Erythrocyte distribution width [Ratio] by Automated count 11.0-15.0 [facility] Estimated glomerular filtrat ion rate (GFR) non- Americanon 09-01-2024 GFR/1.73 sq M.predicted among non-blacks MDRD (S/P/Bld) [Vol rate/Area] Estimated glomerular filtration rate (GFR) non- Low >=60 mL/min/1.73m 2 [facility] Globulin Calc (S) [Mass/Vol] on 09-01-2024 Globulin (S) [Mass/Vol] Serum globulin measurement by calculation (mass/volume) [facility] Hematocrit Auto (Bld) [Volum e fraction]on 09-01-2024 Hematocrit (Bld) [Volume fraction] Hematocrit [Volume Fraction] of Blood by Automated count 36.0-48.0 [facility] Hemoglobin [Mass/volume] in Bloodon 09-01-2024 Hemoglobin (Bld) [Mass/Vol] Hemoglobin [Mass/volume] in Blood 12.0-16.0 [facility] Laboratory - Chemistry and C hemistry - challengeon 09-01-2024 Albumin [Mass/Vol] 3.7 g/dL 3.4-5.0 [facility] ALP [Catalytic activity/Vol] 97 U/L 46-116 [facility] ALT [Catalytic activity/Vol] 15 U/L 14-59 [facility] AST [Catalytic activity/Vol] 16 U/L 15-37 [facility] Bilirubin [Mass/Vol] 0.4 mg/dL 0.2-1.0 [facility] Calcium [Mass/Vol] 9.2 mg/dL 8.5-10.1 [facility] Chloride [Moles/Vol] 106 mmol/L 98-107 [facility] CO2 [Moles/Vol] 31.0 mmol/L 21.0-32.0 [facility] Creatinine [Mass/Vol] 1.01 mg/dL 0.55-1.02 [facility] Free T4 [Mass/Vol] 0.95 ng/dL 0.76-1.46 [facility] GFR/1.73 sq M.predicted MDRD (S/P/Bld) [Vol rate/Area] mL/min/{1.73_m2} >=60 mL/min/1.73m 2 [facility] Glucose [Mass/Vol] 87 mg/dL 74-106 [facility] Potassium [Moles/Vol] 3.9 mmol/L 3.5-5.1 [facility] Protein [Mass/Vol] 6.9 g/dL 6.4-8.2 [facility] Sodium [Moles/Vol] 143 mmol/L 136-145 [facility] TSH Qn 2.491 m[IU]/L 0.358-3.740 [facility] Urea nitrogen [Mass/Vol] 18.0 mg/dL 7.0-18.0 [facility] Urea nitrogen/Creatinine [Mass ratio] 17.8 mg/mg [facility] Laboratory - Hematology and Cell countson 09-01-2024 Immature granulocytes/100 WBC (Bld) 0.2 % 0.0-0.5 [facility] Leukocytes [#/volume] correc slava for nucleated erythrocytes in Blood by Automated counon 09-01-2024 WBC corrected for nucl RBC Auto (Bld) [#/Vol] Leukocytes [#/volume] corrected for nucleated erythrocytes in Blood by Automated coun 4.0-11.0 [facility] Lymphocytes Auto (Bld) [#/Vo l]on 09-01-2024 Lymphocytes (Bld) [#/Vol] Lymphocytes [#/volume] in Blood by Automated count 1.2-3.8 [facility] Lymphocytes/100 WBC Auto (Bl d)on 09-01-2024 Lymphocytes/100 WBC (Bld) Lymphocytes/100 leukocytes in Blood by Automated count 20.5-60.0 [facility] MCH Auto (RBC) [Entitic mass ]on 09-01-2024 MCH (RBC) [Entitic mass] MCH [Entitic mass] by Automated count 26.7-34.0 [facility] MCHC Auto (RBC) [Mass/Vol]on 09-01-2024 MCHC (RBC) [Mass/Vol] MCHC [Mass/volume] by Automated count 29.9-35.2 [facility] MCV Auto (RBC) [Entitic vol] on 09-01-2024 MCV (RBC) [Entitic vol] MCV [Entitic volume] by Automated count 81.0-99.0 [facility] Monocytes Auto (Bld) [#/Vol] on 09-01-2024 Monocytes (Bld) [#/Vol] Automated blood monocyte count 0.3-0.8 [facility] Monocytes/100 WBC Auto (Bld) on 09-01-2024 Monocytes/100 WBC (Bld) Automated monocy te % 1.7-12.0 [facility] Neutrophils Auto (Bld) [#/Vo l]on 09-01-2024 Neutrophils (Bld) [#/Vol] Neutrophils [#/volume] in Blood by Automated count 1.4-6.5 [facility] Neutrophils/100 WBC Auto (Bl d)on 09-01-2024 Neutrophils/100 WBC (Bld) Automated neutrophil % 43.0-75.0 [facility] No Panel Informationon 09-01 Eosinophils # (Auto) 0.1 10 3/uL 0.0-0.7 [facility] Immature Granulocyte # (Auto) 0.01 10 3/uL 0.00-0.03 [facility] Platelet mean volume Auto (B ld) [Entitic vol]on 09-01-2024 Platelet mean volume (Bld) [Entitic vol] Platelet mean volume [Entitic volume] in Blood by Automated count 9.5-13.5 [facility] Platelets Auto (Bld) [#/Vol] on 09-01-2024 Platelets (Bld) [#/Vol] Platelets [#/volume] in Blood by Automated count 150-450 [facility] RBC Auto (Bld) [#/Vol]on RBC (Bld) [#/Vol] Erythrocytes [#/volume] in Blood by Automated count 4.20-5.40 [facility] Serum or plasma albumin/glob ulin mass ratioon 09-01-2024 Albumin/Globulin [Mass ratio] Serum or plasma albumin/globulin mass ratio [facility] Serum or plasma anion gap de terminationon 09-01-2024 Anion gap [Moles/Vol] Serum or plasma anion gap determination [facility] Basophils Auto (Bld) [#/Vol] on 09-06-2023 Basophils (Bld) [#/Vol] 0.1 10 3/uL 0.0-0.1 [facility] Basophils/100 WBC Auto (Bld) on 09-06-2023 Basophils/100 WBC (Bld) 1.2 % 0.2-2.0 [facility] Cholesterol in LDL Calc [Mas s/Vol]on 09-06-2023 Cholesterol in LDL [Mass/Vol] 133.0 mg/dL [facility] Comment on above: <100 mg/dl [id number] 0-129 mg/dl NEAR OR ABOVE [id number] mg/dl BORDERLINE [id number] mg/dl HIGH>190 mg/dl VERY HIGH Cholesterol in VLDL Calc [Ma ss/Vol]on 09-06-2023 Cholesterol in VLDL [Mass/Vol] 21.8 mg/dL [facility] Eosinophils/100 WBC Auto (Bl d)on 09-06-2023 Eosinophils/100 WBC (Bld) 2.2 % 0.9-7.0 [facility] Erythrocyte distribution wid th Auto (RBC) [Ratio]on 09-06-2023 Erythrocyte distribution width (RBC) [Ratio] 14.0 % 11.0-15.0 [facility] Estimated glomerular filtrat ion rate (GFR) non- Americanon 09-06-2023 GFR/1.73 sq M.predicted among non-blacks MDRD (S/P/Bld) [Vol rate/Area] 54 mL/min/{1.73_m2} >=60 [facility] Globulin Calc (S) [Mass/Vol] on 09-06-2023 Globulin (S) [Mass/Vol] 3.5 g/dL [facility] Hematocrit Auto (Bld) [Volum e fraction]on 09-06-2023 Hematocrit (Bld) [Volume fraction] 43.8 % 36.0-48.0 [facility] Hemoglobin [Mass/volume] in Bloodon 09-06-2023 Hemoglobin (Bld) [Mass/Vol] 13.6 g/dL 12.0-16.0 [facility] Laboratory - Chemistry and C hemistry - challengeon 09-06-2023 Albumin [Mass/Vol] 3.7 g/dL 3.4-5.0 [facility] ALP [Catalytic activity/Vol] 81 U/L 46-116 [facility] ALT [Catalytic activity/Vol] 18 U/L 14-59 [facility] AST [Catalytic activity/Vol] 14 U/L 15-37 [facility] Bilirubin [Mass/Vol] 0.3 mg/dL 0.2-1.0 [facility] Calcium [Mass/Vol] 9.2 mg/dL 8.5-10.1 [facility] Chloride [Moles/Vol] 104 mmol/L 98-107 [facility] Cholesterol [Mass/Vol] 216 mg/dL <=200 [facility] Cholesterol in HDL [Mass/Vol] 62 mg/dL 40-60 [facility] Comment on above: > or =60 mg/dl - LOW CARDIOVASCULAR RISK<40 mg/dl - HIGH CARDIOVASCULAR RISK CO2 [Moles/Vol] 29.2 mmol/L 21.0-32.0 [facility] Creatinine [Mass/Vol] 1.04 mg/dL 0.55-1.02 [facility] GFR/1.73 sq M.predicted MDRD (S/P/Bld) [Vol rate/Area] mL/min/{1.73_m2} >=60 [facility] Glucose [Mass/Vol] 84 mg/dL 74-106 [facility] Potassium [Moles/Vol] 4.1 mmol/L 3.5-5.1 [facility] Protein [Mass/Vol] 7.2 g/dL 6.4-8.2 [facility] Sodium [Moles/Vol] 143 mmol/L 136-145 [facility] Triglyceride [Mass/Vol] 109 mg/dL <=150 [facility] TSH Qn 1.534 m[IU]/L 0.358-3.740 [facility] Urea nitrogen [Mass/Vol] 14.0 mg/dL 7.0-18.0 [facility] Urea nitrogen/Creatinine [Mass ratio] 13.5 mg/mg [facility] Laboratory - Hematology and Cell countson 09-06-2023 Immature granulocytes/100 WBC (Bld) 0.2 % 0.0-0.5 [facility] Leukocytes [#/volume] correc slava for nucleated erythrocytes in Blood by Automated counon 09-06-2023 WBC corrected for nucl RBC Auto (Bld) [#/Vol] 4.9 10 3/uL 4.0-11.0 [facility] Lymphocytes Auto (Bld) [#/Vo l]on 09-06-2023 Lymphocytes (Bld) [#/Vol] 1.9 10 3/uL 1.2-3.8 [facility] Lymphocytes/100 WBC Auto (Bl d)on 09-06-2023 Lymphocytes/100 WBC (Bld) 39.6 % 20.5-60.0 [facility] MCH Auto (RBC) [Entitic mass ]on 09-06-2023 MCH (RBC) [Entitic mass] 28.6 pg 26.7-34.0 [facility] MCHC Auto (RBC) [Mass/Vol]on 09-06-2023 MCHC (RBC) [Mass/Vol] 31.1 g/dL 29.9-35.2 [facility] MCV Auto (RBC) [Entitic vol] on 09-06-2023 MCV (RBC) [Entitic vol] 92.0 fL 81.0-99.0 [facility] Monocytes Auto (Bld) [#/Vol] on 09-06-2023 Monocytes (Bld) [#/Vol] 0.3 10 3/uL 0.3-0.8 [facility] Monocytes/100 WBC Auto (Bld) on 09-06-2023 Monocytes/100 WBC (Bld) 5.7 % 1.7-12.0 [facility] Neutrophils Auto (Bld) [#/Vo l]on 09-06-2023 Neutrophils (Bld) [#/Vol] 2.5 10 3/uL 1.4-6.5 [facility] Neutrophils/100 WBC Auto (Bl d)on 09-06-2023 Neutrophils/100 WBC (Bld) 51.1 % 43.0-75.0 [facility] No Panel Informationon 09-05 Eosinophils # (Auto) 0.1 10 3/uL 0.0-0.7 [facility] Immature Granulocyte # (Auto) 0.01 10 3/uL 0.00-0.03 [facility] Platelet mean volume Auto (B ld) [Entitic vol]on 09-06-2023 Platelet mean volume (Bld) [Entitic vol] 9.2 fL 9.5-13.5 [facility] Platelets Auto (Bld) [#/Vol] on 09-06-2023 Platelets (Bld) [#/Vol] 280 10 3/uL 150-450 [facility] RBC Auto (Bld) [#/Vol]on RBC (Bld) [#/Vol] 4.76 10 6/uL 4.20-5.40 [facility] Serum or plasma albumin/glob ulin mass ratioon 09-06-2023 Albumin/Globulin [Mass ratio] 1.1 {ratio} [facility] Serum or plasma anion gap de terminationon 09-06-2023 Anion gap [Moles/Vol] 13.9 mmol/L [facility] Serum or plasma total choles terol/high density lipoprotein (HDL) cholesterol mass elis 09-06-2023 Cholesterol.total/Valeria sterol in HDL [Mass ratio] 3.5 {ratio} [facility] Comment on above: 3.3 - 4.4 LOW RISK4. 4 - 7.1 AVERAGE RISK7.1 - 11.0 MODERATE RISK>11.0 HIGH RISK Covid-19 PCR (CVDTBH)on SARS-CoV-2 (COVID-19) RNA LUDWIG+probe Ql (Unsp spec) Not detected Normal NOT DETECTED [facility] Comment on above: Result Comment: This test is not yet approved or cleared by the [place] FDA. When there are no FDA-approved or cleared tests available, and other criteria are met, FDA can make tests available under an emergency access mechanism called an Emergency Use Authorization (EUA). The EUA for this test is supported by the [place] of Health and Human Service's (HHS's) declaration [...] consistent with SARS-CoV-2. Performed By: #### [facility] #### [facility] [address] [place] [address] [address] Solange Allen MG MAMM SCREEN 3D KERI CADon 10-28-2021 MG MAMM SCREEN 3D KERI CAD Patient: AURELIA KAPADIA Exam Date: 10/28/2021 : 1965 Gender:F Ordering : DR SVETA MARISCAL M.D. Admission #: [id number] Family : DR DEVEN STEVENSON . Order #: [id number] CLICK HERE TO VIEW EXAM RADIOLOGY REPORT PROCEDURE: MAMMOGRAM SCREENING 3D BILATERAL CAD COMPARISON: MG MAMM SCREEN 3D KERI CAD, 10/27/2020. MG MAMM SCREEN KERI W CAD, 09/03/2019. INDICATIONS: Screening mammography Calculator Name NCI Breast Cancer Risk Assessment Tool 5 Year Breast Cancer Risk 1.70% Lifetime Breast Cancer Risk 9.60% Personal Breast Cancer No Personal Ovarian Cancer No Treatments None Family Cancers Grandfather-paterna l with prostate cancer at age 70; Grandmother-materna l with breast cancer at age 88. LOCATION: [facility] BREAST COMPOSITION: Extremely dense, which lowers [...] Horton MD on 10/28/2021 at 08:26 Normal [facility] FREE T4on 08-15-2021 Free T4 [Mass/Vol] 0.92 ng/dL Normal 0.78-2.19 [facility] Comment on above: Performed By: #### F T4 #### [facility] [address] [place] [address] Dr. Solange Allen LIPID PROFILEon 08-15-2021 CHOL-HDL RATIO NORM SEE BELOW Normal [facility] Comment on above: Result Comment: 3.3 - 4.4 LOW RISK 4.4 - 7.1 AVERAGE RISK 7.1 - 11.0 MODERATE RISK >11.0 HIGH RISK Performed By: #### L IPID, TSH, CMP #### [facility] [address] [address] [address] Solange Allen Cholesterol [Mass/Vol] 192 mg/dL Normal <=[address] [facility] Comment on above: Performed By: #### L IPID, TSH, CMP #### [facility] [address] [address] [address] Solange Allen Cholesterol in HDL [Mass/Vol] 59 mg/dL Normal [facility] Comment on above: Performed By: #### L IPID, TSH, CMP #### [facility] [address] [address] [address] Solange Allen Cholesterol in LDL [Mass/Vol] 118.8 mg/dL Normal [facility] Comment on above: Performed By: #### L IPID, TSH, CMP #### [facility] [address] [address] [address] Solange Allen Cholesterol.total/Valeria sterol in HDL [Mass ratio] 3.3 {ratio} Normal [facility] Comment on above: Performed By: #### L IPID, TSH, CMP #### [facility] [address] [place] [address] Dr. Solange Allen HDL NORMAL > or = 60 mg/dl - LOW CARDIOVASCULAR RISK <40 mg/dl - HIGH CARDIOVASCULAR RISK Normal [facility] Comment on above: Performed By: #### L IPID, TSH, CMP #### [facility] [address] [place] [address] Dr. Solange Allen LDL CALC NORMAL SEE BELOW Normal [facility] Comment on above: Result Comment: <100 mg/dl OPTIMAL 100 - 129 mg/dl NEAR OR ABOVE OPTIMAL 130 - 159 mg/dl BORDERLINE HIGH 160 - 189 mg/dl HIGH >190 mg/dl VERY HIGH Performed By: #### L IPID, TSH, CMP #### [facility] [address] [place] [address] Dr. Solange Allen Triglyceride [Mass/Vol] 71 mg/dL Normal <=150 T [facility] Comment on above: Performed By: #### L IPID, TSH, CMP #### [facility] [address] [place] [address] Dr. Solange Allen VLDL CALC 14.2 mg/dL Normal [facility] Comment on above: Performed By: #### L IPID, TSH, CMP #### [facility] [address] [place] [address] Dr. Solange Allen PROF 14(COMP METB)on 022 Albumin [Mass/Vol] 3.9 g/dL Normal 3.5-5.0 [facility] Comment on above: Performed By: #### L IPID, TSH, CMP #### [facility] [address] [address] [address] Solange Allen Albumin/Globulin [Mass ratio] 1.1 {ratio} Normal [facility] Comment on above: Performed By: #### L IPID, TSH, CMP #### [facility] [address] [address] [address] Solange Allen ALP [Catalytic activity/Vol] 84 U/L Normal 38-126 [facility] Comment on above: Performed By: #### L IPID, TSH, CMP #### [facility] [address] [place] [address] Dr. Solange Allen ALT [Catalytic activity/Vol] 18 U/L Normal 9-52 [facility] Comment on above: Performed By: #### L IPID, TSH, CMP #### [facility] [address] [address] [address] Solange Allen Anion gap [Moles/Vol] 11.0 mmol/L Normal [facility] Comment on above: Performed By: #### L IPID, TSH, CMP #### [facility] [address] [place] [address] Dr. Solange Allen AST [Catalytic activity/Vol] 14 U/L Normal 14-36 [facility] Comment on above: Performed By: #### L IPID, TSH, CMP #### [facility] [address] [address] [address] Solange Allen Bilirubin [Mass/Vol] 0.3 mg/dL Normal 0.2-1.3 [facility] Comment on above: Performed By: #### L IPID, TSH, CMP #### [facility] [address] [place] [address] Dr. Solange Allen Calcium [Mass/Vol] 9.2 mg/dL Normal 8.4-10.2 [facility] Comment on above: Performed By: #### L IPID, TSH, CMP #### [facility] [address] [address] [address] Solange Allen Chloride [Moles/Vol] 106 mmol/L Normal 98-107 [facility] Comment on above: Performed By: #### L IPID, TSH, CMP #### [facility] [address] [address] [address] Solange Allen CO2 [Moles/Vol] 26.6 mmol/L Normal 22.0-30.0 [facility] Comment on above: Performed By: #### L IPID, TSH, CMP #### [facility] [address] [address] [address] Solange Allen Creatinine [Mass/Vol] 1.27 mg/dL Critically high 0.52-1.04 [facility] Comment on above: Performed By: #### L IPID, TSH, CMP #### [facility] [address] [place] [address] Dr. Solange Allen EGFR-AF CITIZEN [place] 53 mL/min/1.73m2 Critically low >=60 [facility] Comment on above: Performed By: #### L IPID, TSH, CMP #### [facility] [address] [address] [address] Solange Allen EGFR-NON AF CITIZEN OF [place] 43 mL/min/1.73m2 Critically low >=60 [facility] Comment on above: Performed By: #### L IPID, TSH, CMP #### [facility] [address] [address] [address] Solange Allen Globulin (S) [Mass/Vol] 3.4 g/dL Normal [facility] Comment on above: Performed By: #### L IPID, TSH, CMP #### [facility] [address] [address] [address] Solange Allen Glucose [Mass/Vol] 96 mg/dL Normal 74-106 [facility] Comment on above: Performed By: #### L IPID, TSH, CMP #### [facility] [address] [address] [address] Solange Allen Potassium [Moles/Vol] 4.6 mmol/L Normal 3.4-5.0 [facility] Comment on above: Performed By: #### L IPID, TSH, CMP #### [facility] [address] [place] [address] Dr. Solange Allen Protein [Mass/Vol] 7.3 g/dL Normal 6.1-8.2 [facility] Comment on above: Performed By: #### L IPID, TSH, CMP #### [facility] [address] [place] [address] Dr. Solange Allen Sodium [Moles/Vol] 139 mmol/L Normal 137-145 [facility] Comment on above: Performed By: #### L IPID, TSH, CMP #### [facility] [address] [place] [address] Dr. Solange Allen Urea nitrogen [Mass/Vol] 17.0 mg/dL Normal 7.0-17.0 [facility] Comment on above: Performed By: #### L IPID, TSH, CMP #### [facility] [address] [place] [address] Dr. Solange Allen Urea nitrogen/Creatinine [Mass ratio] 13.4 mg/mg Normal [facility] Comment on above: Performed By: #### L IPID, TSH, CMP #### [facility] [address] [place] [address] Dr. Solange Allen TSHon 08-15-2021 TSH 2.727 uIU/mL Normal 0.470-4.680 [facility] Comment on above: Performed By: #### L IPID, TSH, CMP #### [facility] [address] [place] [address] Dr. Solange Allen TSH RANGE SEE BELOW Normal [facility] Comment on above: Result Comment: <0.3 4 UIU/ml HYPERTHYROID 0.34-5.60 UIU/ml EUTHYROID >5.60 UIU/ml HYPOTHYROID Performed By: #### L IPID, TSH, CMP #### [facility] [address] [place] [address] Dr. Solange Allen Vital Signs Date Time Vital Sign Value Performing Clinician Facility 02-05-2025 10:47-0400 Body height 170.18 cm Sveta Mariscal MD Work Phone: [facility] 02-05-2025 10:47-0400 Body mass index (BMI) [Ratio] 30.4 kg/m2 Sveta Mariscal MD Work Phone: [facility] 02-05-2025 10:47-0400 Body weight 87.99 kg Sveta Mariscal MD Work Phone: [facility] 02-05-2025 10:47-0400 Diastolic blood pressure 75 mm[Hg] Sveta Mariscal MD Work Phone: [facility] 02-05-2025 10:47-0400 Heart rate 79 /min Sveta Mariscal MD Work Phone: [facility] 02-05-2025 10:47-0400 Systolic blood pressure 112 mm[Hg] Sveta Mariscal MD Work Phone: [facility] 09-04-2024 08:28-0400 Body height 170.18 cm [facility] 09-04-2024 08:28-0400 Body mass index (BMI) [Ratio] 30.1 kg/m2 [facility] 09-04-2024 08:28-0400 Body weight 87.31 kg [facility] 09-04-2024 08:28-0400 Diastolic blood pressure 84 mm[Hg] [facility] 09-04-2024 08:28-0400 Heart rate 91 /min [facility] 09-04-2024 08:28-0400 Systolic blood pressure 117 mm[Hg] [facility] 09-11-2023 08:29-0400 Body height 170.18 cm [facility] 09-11-2023 08:29-0400 Body mass index (BMI) [Ratio] 29.4 kg/m2 [facility] 09-11-2023 08:29-0400 Body weight 85.27 kg [facility] 09-11-2023 08:29-0400 Diastolic blood pressure 67 mm[Hg] [facility] 09-11-2023 08:29-0400 Heart rate 82 /min [facility] 09-11-2023 08:29-0400 Systolic blood pressure 107 mm[Hg] [facility] 04-19-2023 13:00-0400 Body height 170.18 cm Sveta Mariscal Other [facility] [employer] Other 04-19-2023 13:00-0400 Body mass index (BMI) [Ratio] 29.44 kg/m2 Sveta Mariscal Other [facility] [employer] Other 04-19-2023 13:00-0400 Body weight 85.28 kg Sveta Mariscal Other [facility] [employer] Other 04-19-2023 13:00-0400 Diastolic blood pressure 65 mm[Hg] Sveta Mariscal Other [facility] Other 04-19-2023 13:00-0400 Systolic blood pressure 109 mm[Hg] Sveta Mariscal Other [employer] Other Encounters Encounter Date Encounter Type Care Provider Facility Start: 02-26-2025 ambulatory Sveta Mariscal MD Work Phone: [facility] Work Phone: Start: 02-26-2025 Non-patient / Non-visit Sveta cruz MD -[facility] [employer] Work Phone: Start: 02-05-2025 End: 02-05-2025 ambulatory Sveta Mariscal MD Work Phone: [facility] Work Phone: Start: 02-05-2025 End: 02-05-2025 Patient encounter procedure Sveta Mariscal MD -[facility] Work Phone: Start: 12-10-2024 End: 12-10-2024 Clinisync Result Encounter Deven Stevenson DO Work Phone: [facility] External Department Unsolicited Start: 12-10-2024 End: 12-10-2024 Clinisync Result Encounter Deven Stevenson DO Work Phone: [facility] External Department Unsolicited Start: 09-04-2024 End: 09-04-2024 ambulatory [facility] Work Phone: Start: 09-04-2024 End: 09-04-2024 Patient encounter procedure Counts Include [facility] Physician [facility] Work Phone: Start: 09-01-2024 Non-patient / Non-visit Counts Include [facility] Physician [facility] [employer] Work Phone: Start: 09-11-2023 End: 09-11-2023 ambulatory [facility] Work Phone: Start: 09-11-2023 End: 09-11-2023 Patient encounter procedure [facility] Work Phone: Start: 09-06-2023 Non-patient / Non-visit Counts Include [facility] Physician [facility] [employer] Work Phone: Start: 09-05-2023 Patient encounter status [facility] Start: 08-07-2023 Non-patient / Non-visit Counts Include [facility] Physician [facility] [employer] Work Phone: Start: 07-11-2023 (Televisit) Televisit Sveta Mariscal [facility] Start: 07-11-2023 End: 07-11-2023 ambulatory Sveta Mariscal Other [facility] Other Start: 06-05-2023 End: 06-05-2023 ambulatory Sveta Mariscal Other [facility] Other Start: 06-05-2023 Telephone encounter Sveta Mariscal [facility] Start: 04-19-2023 End: 04-19-2023 ambulatory Sveta Mariscal Other [facility] Other Start: 04-19-2023 Encounter for genera l adult medical examination without abnormal findings Sveta Mariscal [facility] Start: 04-19-2023 Periodic preventive med est patient 40-64yrs Sveta Mariscal [facility] Start: 06-07-2022 Adult health examination Sary Mariscal Other [facility] Other Start: 05-27-2022 Encounter for preprocedural laboratory examination DR VLAENTINA VALDIVIA [facility] Start: 05-24-2022 End: 05-24-[address] VALENTINA VALDIVIA Facility:[facility] Start: 05-19-2022 End: 05-20-[address] VALENTINA VALDIVIA Facility:[facility] Start: 05-19-2022 End: 05-20-2022 Encounter for preprocedural laboratory examination DR VALENTINA VALDIVIA Facility:[facility] Start: 05-15-2022 Encounter for other preprocedural examination DR VALENTINA VALDIVIA [facility] Start: 05-10-2022 End: 05-11-[address] SVETA MARISCAL Facility:[facility] Start: 05-10-2022 End: 05-11-2022 Encounter for other preprocedural examination DR SVETA MARISCAL Facility:[facility] Start: 10-28-2021 End: 10-29-[address] SVETA MARISCAL Facility:[facility] Start: 08-17-2021 Encounter for genera l adult medical examination without abnormal findings DR SVETA MARISCAL [facility] Start: 08-15-2021 End: 08-16-[address] SVETA MARISCAL Facility:[facility] Start: 08-15-2021 End: 08-16-2021 Encounter for general adult medical examination without abnormal findings DR SVETA MARISCAL Facility:[facility] Start: 02-15-2016 Gynecological examin ation normal Sveta Mariscal Other [facility] Other Procedures Date Procedure Procedure Detail Performing Clinician Start: 12-10-2024 MM TOMOSYNTHESIS SCR EEBONY Stevenson DO Work Phone: Plan of Treatment Date Care Activity Detail Author Start: 02-26-2025 Patient referral [facility] Work Phone: CT Abdomen and Pelvi s WO contrast [facility] DXA Skeletal system. axial Views for bone density [facility] Patient referral [facility] Work Phone: [facility] Payers Date Payer Category Payer Unknown [id number] 1965 Unknown [id number] 1965 Unknown [id number] 1965 Unknown [id number] 1965 Unknown [id number] 1961 Private Health Insurance [id number] Private Health Insurance [employer] [id number] Social History Date Type Detail Facility Unknown if ever smoked [facility] [employer] Other Sex Assigned At [employer] [facility] [employer] Other Start: 1965 Sex Assigned At Female F [facility] Tobacco smoking stat [facility] Unknown if ever smoked [facility] Start: 09-04-2024 Sex Female (finding) [facility] Start: 1965 Sex assigned at Not on file [facility] Chief complaint+Reason for visit Narrative 02-05-2025 Note Date & Type Note Facility 02-05-2025 Chief complaint+R alondra for visit Narrative back/side pain February 05, 2025 10 :44am Referral Order February 26, 2025 1:36pm Reason for Visit Admit Date Osteoporosis February 05, 2025 10 :44am Right flank pain February 05, 2025 10 :44am RUQ abdominal pain February 05, 2025 10 :44am [facility] Work Phone: Evaluation note 02-05-2025 Note Date & Type Note Facility 02-05-2025 Evaluation note Diagnosis Onset Date Resolution Osteoporosis acute February 05, 2025 10:44am Right flank pain acute January 172024 10:44am RUQ abdominal pain acute February 05, 2025 10:44am [facility] Work Phone: Evaluation note 07-11-2023 Note Date & Type [...] verbalized understanding and agreement with treatment plan. [facility] Other Evaluation note 06-05-2023 Note Date & Type Note Facility 06-05-2023 Evaluation note Encounter Date Diagnosis Assessment Notes May, Hypothyroidism, unspecified type (ICD-10 - E03.9) [facility] Other Evaluation note 04-19-2023 Note Date & [...] We will call patient with x-ray results. [facility] Other Evaluation note Note Date & Type Note Facility Evaluation note No assessment information availa zachary [facility] Work Phone: Evaluation note Note Date & Type Note Facility Evaluation note Diagnosis Onset Date Resolution Osteoporosis acute February 05, 2025 10:44am Right flank pain acute January 172024 10:44am RUQ abdominal pain acute February 05, 2025 10:44am [facility] Work Phone: History general Narrative - Reported [...] History Problem Title : Phar nahid: [facility], Problem Status : Active,, Medical History Problem [...] History HYSTERECTOMY Hospitalization History [facility] in [employer] [employer] Other Hospital Discharge instructions Note Date & Type Note Facility Hospital Discharge instructions Ambulatory OrdersReferral to General Surgery Time Frame: 02/26/25, Location: None Selected [facility] Work Phone: Reason for referral (narrative) Note Date & Type Note Facility Reason for referral (narrative) No reason for referral information available [facility] Work Phone: Summary Purpose Family History Relationship Condition Age at Onset Recorded Date/T shannon father Heart disease Unknown Advance Directives Advance Directive Response Recorded Date/ Time Advance Directives No September 02, 024 12:03pm Chief Complaint and Reason for [...] FOR VISIT (unrecogniz ed section and content) [facility] [phone] Care Teams (unrecognized sec tion and content) [...] 2023 Team Status: Inactive Member Role Status Yuval [...] 2024 End: September 04, 2024 Team Status: Active Member Role Status Yuval Mariscal MD Primary Care Provider Active Start: February 26, 2025 Sveta Mariscal MD Attending Provider Active St art: February 26, 2025 Goals (unrecognized section and content) Goals [...] BE BASED ON THE PRIMARY CLINICAL RECORDS. [employer] provides no warranty or guarantee of the accuracy or completeness of information in this document.
== END 2025-03-09 11:14 | disposition home or self-care (01) ==
PROVIDERS: PCP Family Medicine; Visit Provider Family Medicine
DX: R10.11 Right upper quadrant pain (principal); R10.9 Unspecified abdominal pain; M81.0 Age-related osteoporosis without current pathological fracture; N20.0 Calculus of kidney; K57.90 Diverticulosis of intestine, part unspecified, without perforation or abscess without bleeding
CPT/HCPCS: 74176

== ENCOUNTER 2025-05-11 20:59 | Outpatient (REF) | payer OTHER, SELFPAY ==
--- OUTSIDE RECORDS SUMMARY | 2025-05-11 15:00 | XMS_ITS | Encounter Summary ---
Author Organization [facility] Address [address] [place] [address] Care Team Providers Care Chief Catalyst Operator Name Role Phone Unavailable Primary Care Provider Unavailabl e Reason for Visit * ReasonCommentsGynecologic Exam Encounter Details DateTypeDepartmentCare Team (Latest Contact Info)Bcslegfsxrt90/24/2025 3:00 PM ESTProcedure Visit [facility] [address] [place] [id number] Hiral Cerna PA [address] [place], [facility] Well woman exam with routine gynecological exam; H/O: hysterectomy; Yeast infection Social History Tobacco UseTypesPacks/DayYears UsedDateSmoking Tobacco: Never Assessed CommentsNoSex and Gender InformationValueDate RecordedSex Assigned at BirthNot on fileLegal WgvZdhcus05/15/2023 11:36 PM EDTGender IdentityNot on fileSexual OrientationNot on filedocumented as of this encounter Last Filed Vital Signs Vital SignReadingTime TakenCommentsBlood Uxgesbdy291/7405/11/2025 3:24 PM EST Pulse--Temperature--Respiratory Rate--Oxygen Saturation--Inhaled Oxygen Concentration--Lbbvuq02.7 kg (189 lb)05/11/2025 3:24 PM ESTHeight--Body Mass Index--documented in this encounter Progress Notes * NISHA Rojas - 05/11/2025 3:00 PM EST Reason for Appointment: Patient ID: Aurelia Harden is a 59 y.o. female who presents for Gynecologic Exam Patient presents today for Annual Exam. MEDICATIONS No current outpatient medications ALLERGIES No Known Allergies PROBLEMS Active Ambulatory Problems Diagnosis Date Noted No Active Ambulatory Problems Resolved Ambulatory Problems Diagnosis Date Noted No Resolved Ambulatory Problems No Additional Past Medical History HISTORY PAST MEDICAL HISTORY SOCIAL HISTORY No past medical history on file. Social History Tobacco Use Smoking status: Not on file Smokeless tobacco: Not on file Substance Use Topics Alcohol use: Not on file Drug use: Not on file FAMILY HISTORY No family history on file. SURGICAL HISTORY Past Surgical History: Procedure Laterality Date HYSTERECTOMY 2010 REVIEW OF SYSTEMS Review of Systems: Review of Systems Constitutional: Negative. HENT: Negative. Eyes: Negative. Respiratory: Negative. Cardiovascular: Negative. Gastrointestinal: Negative. Genitourinary: Negative. Musculoskeletal: Negative. Skin: Negative. Neurological: Negative. All other systems reviewed and are negative. Hematological: Negative. Endocrine: Negative. Allergic/Immunologic: Negative. OBJECTIVE Objective: Physical Exam Constitutional: Appearance: Normal appearance. She is well-developed. Genitourinary: Vulva normal. Right Adnexa: not tender and no mass present. Left Adnexa: not tender and no mass present. Cervix is absent. Uterus is absent. Breasts: Breasts are soft. Right: Normal. Left: Normal. HENT: Head: Normocephalic. Nose: Nose normal. Mouth/Throat: Mouth: Mucous membranes are moist. Cardiovascular: Rate and Rhythm: Normal rate and regular rhythm. Pulmonary: Effort: Pulmonary effort is normal. Breath sounds: Normal breath sounds. Abdominal: General: Bowel sounds are normal. There is no distension. Palpations: Abdomen is soft. Tenderness: There is no abdominal tenderness. There is no guarding or rebound. Musculoskeletal: General: No swelling. Normal range of motion. Cervical back: Normal range of motion. Right lower leg: No edema. Left lower leg: No edema. Neurological: General: No focal deficit present. Mental Status: She is alert and oriented to person, place, and time. Skin: General: Skin is warm and dry. Psychiatric: Mood and Affect: Mood normal. Behavior: Behavior normal. Vitals and nursing note reviewed. Exam conducted with a special education inclusion teacher present. Vitals: There is no height or weight on file to calculate BMI. BP: 124/74 No LMP recorded. Patient has had a hysterectomy. Assessment/Plan ICD-10-CM 1. Well woman exam with routine gynecological exam Z01.419 THIN PREP TIS PAP AND HR HPV DNA 2. Encounter for osteoporosis screening in asymptomatic postmenopausal patient Z13.820 CANCELED: DEXA bone density Z78.0 Assessment/Plan Annual: Patient presents today for an annual exam. Patient states she is doing well and has no complaints. Pap was obtained without difficulty and Mammogram was done on 12/10/2024 with negative results. Dexascan was done on 12/10/2024 with normal results by Dr. Flores. No orders of the defined types were placed in this encounter. Pt had cx's done at this visit due to vaginal discharge. Diflucan was called in. Follow Up: Patient is to return in one year for annual unless needed otherwise. Documented by Yoko Kimble MA on behalf of: NISHA Rojas documented in this encounter Plan of Treatment DateTypeDepartmentCare Team (Latest Contact Info)Pritcorgbka08/30/2026 11:00 AM ESTProcedure Visit [facility] [address] [place] [address] Hiral Cerna PA [address] [place] [address] NameTypePriorityAssociated DiagnosesOrder ScheduleTHIN PREP TIS PAP AND HR HPV DNAPathology and CytologyRoutine Well woman exam with routine gynecological exam Ordered: 05/11/2025documented as of this encounter Visit Diagnoses Diagnosis Well woman exam with routine gynecological exam Routine gynecological examination H/O: hysterectomy Acquired absence of both cervix and uterus Yeast infection documented in this encounter
--- OUTSIDE RECORDS SUMMARY | 2025-05-11 21:03 | XMS_ITS | CCD ---
Author Organization [facility] Care Team Providers Care Executive Chef Assistant Name Role Phone DR SVETA MARISCAL Primary Care Unavailable MARISCAL, DR SVETA Adan Admitting Unavailable MARISCAL, DR SVETA Adan Attending Unavailable MARISCAL, DR SEVTA Adan Consulting Unavailable SHEA, DR VALENTINA Adan Consulting Unavailabl e MARISCAL, DR SVETA Adan Primary Care Unavailable GRJOSE, DR VALENTINA Adan Admitting Unavailabl e GRJOSE, DR VALENTINA Adan Attending Unavailabl e MARISCAL, DR SVETA Adan Primary Care Unavailable SHEA, DR VALENTINA Adan Admitting Unavailabl e RAMIREZ, EMY Consulting Unavailable SHEA, DR VALENTINA Adan Attending Unavailabl e SHEA, DR VALENTINA Adan Admitting Unavailabl e MARISCAL, DR SVETA Adan Primary Care Unavailable GRILLIDeirdre, DR VALENTINA Adan Attending Unavailabl e SHEA, DR VALENTINA Adan Consulting Unavailabl e BUDDY, SEAN JANSEN Consulting Unava ilable GEMBUS, BOZENA Consulting Unavailable LOIDA, DR SVETA Adan Primary Care Unavailable EDDYVILLE, DR MICHELLE Hart Consulting Unavailable MARISCAL, DR SVETA Adan Admitting Unavailable MARISCAL, DR SVETA Adan Attending Unavailable ELVA, DR CARVALHO Consulting Unavailable LOIDA, DR SVETA Adan Consulting Unavailable Sveta Mariscal Unavailable Unavailable Primary Care Provider Sveta Dominguez MD Primary Care Provider Sveta Mariscal MD Attending Provider [phone] Sveta Mariscal MD Primary Care Provider SVETA MARISCAL Referring Unavailable SVETA MARISCAL Primary Care Unavailable SVETA MARISCAL Referring Unavailable SVETA MARISCAL Primary Care Unavailable VALENTINA VALDIVIA Attending Unavailable SVETA MARISCAL Referring Unavailable SVETA MARISCAL Primary Care Unavailable Jaime WINSLOW Attending Unavailable Sveta Mariscal MD Primary Care Provider [phone] Allergies Allergy ClassificationReported Allergen(s)Allergy TypeDate of OnsetReaction(s) Facility (2 sources)patient allergy list reviewed by nurse or physiciaPropensity to adverse eixplfcbv92-53-3379Kyibxgt:Rupeetalk Other (2 sources)Allergies ReconciledPropensity to adverse reactionsUnkSaint Francis Hospital & [facility] Services [facility] Other Medications Current Medications MedicationDrug Class(es)DatesSig (Normalized)Sig (Original)azithromycin 250 mg oral tablet (1 source)Macrolide AntimicrobialStart: 80-93-3972Iajzupukbjrv 250 MG as directed Orally 2 tabs po today, then 1 tab daily x 4 more days for 5 Jun, Activebetamethasone 0.5 mg/ml / clotrimazole 10 mg/ml topical cream (2 sources)Azole Antifungal, CorticosteroidStart: 30-64-1495garupogfvzjl- betamethasone (LOTRISONE) cream Apply 1 Application topically 2 (two) times a day as needed. 01/06/2025 ActiveCalcium (3 sources)Phosphate Binder, CalciumCalcium + D Activecalcium carbonate 1250 mg / cholecalciferol 200 unt oral tablet (3 sources)Vitamin Dtake 1 tablet by mouth once in the morningcalcium carbonate- vitamin D3 (OSCAL 500 + D) 500 mg(1,250mg) -200 units per tablet Take 1 tablet bymouth in the morning and 1 tablet in the evening. Take with meals. Active calcium citrate 1040 mg oral tablet (4 sources)Start: 99-90-0293koag 2 tablets by mouth once dailyCalcium Citrate 250 mg calcium tablet Active 500 MG PO Daily September 11, 2023 12:00am Complies withdrug therapyStart: 81-76-0675aksj 500 mg by mouth once dailyCalcium Citrate Active 500 MG PO Daily September 11, 2023 12:00amcetirizine hydrochloride 10 mg oral tablet (7 sources)Histamine-1 Receptor AntagonistStart: 99-58-9224fthg 1 tablet by mouth once daily as neededCetirizine (Zyrtec) 10 mg tablet Active 10 MG PO Daily as needed September 11, 2023 12:00am Complies with drug therapytake 1 capsule by mouth in the morningcetirizine (ZyrTEC) 10 mg capsule Take 1 capsule (10 mg total) by mouth in the morning. Activetake 1 tablet by mouth in the morning cetirizine (ZyrTEC) 5 mg tablet Take 1 tablet (5 mg total) by mouth in the morning. Activedocusate sodium 100 mg oral capsule (2 sources)take 1 capsule by mouth three times daily as needed for constipation docusate sodium (COLACE) 100 mg capsule Take 1 capsule (100 mg total) by mouth 3 (three) times a day as needed for constipation. Activeestradiol 1 mg oral tablet (2 sources)EstrogenStart: 12-07-5579zukz 1 tablet by mouth in the morning estradioL (ESTRACE) 1 mg tablet Take 1 tablet (1 mg total) by mouth in the morning. 02/17/2025 Activemagnesium chloride 598 mg delayed release oral tablet (4 sources)Start: 32-08-1304jyii 1 tablet by mouth once dailyMagnesium Chloride 70 mg tablet,delayed release (DR/EC) Active 70 MG PO Daily September 11, 2023 12:00am Complies with drug therapymagnesium oxide 400 mg oral tablet (2 sources)take 1 tablet by mouth in the morningmagnesium oxide (MAGOX) 400 mg tablet Take 1 tablet (400 mg total) by mouth in the morning. ActiveMULTIVITAMIN ORAL (2 sources)take 1 tablet by mouth in the morningMULTIVITAMIN ORAL Take 1 tablet by mouth in the morning. EvexiPel Complete- Vitamin A, D3, K2. Active progesterone 200 mg oral capsule (2 sources)ProgesteroneStart: 57-48-1414ufnu 1 capsule by mouth at bedtime progesterone (PROMETRIUM) 200 mg capsule Take 1 capsule (200 mg total) by mouth before bedtime. 02/17/2025 Activetestosterone 25 mg pellet (2 sources)testosterone 25 mg pellet by implant route. Activethyroid (jail) 30 mg oral tablet (2 sources)Start: 43-82-4170cyiy 1 tablet by mouth in the morningNP THYROID 30 mg tablet Take 1 tablet (30 mg total) by mouth in the morning. 02/18/2025 Active tirzepatide 10 mg/0.5 mL pen injector (2 sources)tirzepatide 10 mg/0.5 mL pen injector Inject 10 mg under the skin every 7 days. Activezinc gluconate 50 mg oral tablet (2 sources)take 1 tablet by mouth in the morningzinc gluconate 50 mg tablet Take 1 tablet (50 mg total) by mouth in the morning. Active Completed/Discontinued Medications MedicationDrug Class(es)DatesSig (Normalized)Sig (Original)fluticasone propionate 0.05 mg/actuat metered dose nasal spray (7 sources)CorticosteroidStart: 09-10-2023 End: 67-12-8982eptc 1 spray(s) nasal route once dailyFluticasone Propionate 50 mcg/actuation spray,suspension Discontinued 1 SPRAY INTRANASAL Daily September 10, 2023 12:00am September 11, 2023 8:37am FreeTextSi spray in each nostril Nasally Once a day; Note: Source Status: Taking; Provider: Ruchi Gonzalez Start: 84-06-6400emvg 1 spray(s) nasal route once dailyFluticasone Propionate 50 MCG/ACT 1 spray in each nostril Nasally Once a day for 21 days Jul, ActiveStart: 44-27-2485pynl 1 spray(s) nasal route once dailyFluticasone Propionate 50 MCG/ACT 1 spray in each nostril Nasally Once a day for 21 days Jul, Activehydrocortisone 25 mg/ml topical cream (2 sources)Corticosteroid End: 14-10-7334zeztlbzlzeihnt (HYTONE) 2.5 % cream Apply 1 application topically in the morning and 1 application before bedtime. 03/11/2025 Discontinued (Patient Stopped On Own)hydrocortisone acetate 25 mg/ml / pramoxine hydrochloride 10 mg/ml topical lotion (2 sources)Corticosteroid End: 40-52-8875cxpxficuusjzvd-pramoxine (ANALPRAM-HC) 2.5-1 % lotion Apply topically 3 (three) times a day. 03/11/2025 Discontinued (Patient Stopped On Own)levothyroxine sodium 0.05 mg oral tablet (20 sources)l-ThyroxineStart: 02-04-2024 End: 88-35-3583Gmdpvmbzwzwfl 50 mcg tablet Discontinued 0 .ROUTE .COMPLEX 90 October 27, 2024 11:22am January 26, 2025 9:31am TAKE 1 TABLET IN THE MORNING ON AN EMPTY STOMACH ONCE A DAYStart: 08-07-2023 End: 59-48-2734yxsl 1 tablet by mouth once daily in the morningLevothyroxine 50 mcg tablet Discontinued 50 MCG PO Daily August 07, 2023 3:35pm January 8:33am FreeTextSi tablet in the morning on an empty stomach Orally Once a day; Note: Source Status: Taking; Refills: 1; Provider: Loida Adan take 1 tablet by mouth once daily in the morningSynthroid 50 MCG 1 tablet in the morning on an empty stomach Orally Once a day for 30 days Activelidocaine 0.05 mg/mg topical ointment (2 sources)Antiarrhythmic, Amide Local Anesthetic End: 65-31-0353jafzzvuju (XYLOCAINE) 5 % ointment Apply 1 application topically as needed for pain. 03/11/2025 Discontinued (Patient Stopped On Own) methylPREDNISolone 4 mg oral tablet (2 sources)CorticosteroidStart: 05-30-2022 End: 45-30-4997kwcq 1 tablet by mouth in the morning, then take 1 tablet by mouth at bedtimemethylPREDNISolone (MEDROL, MARTHA,) 4 mg tablet Take 1 tablet (4 mg total) by mouth in the morning and 1 tablet (4 mg total) before bedtime. 05/30/2022 03/11/2025 Discontinued (Patient Stopped On Own)silver sulfADIAZINE 10 mg/ml topical cream (2 sources)Sulfonamide AntibacterialStart: 06-02-2022 End: 61-52-4935astdcs sulfADIAZINE (SILVADENE) 1 % cream Apply 1 application topically in the morning. 25 g 06/02/2022 03/11/2025 Discontinued (Therapy completed)UNABLE TO FIND (2 sources) End: 11-25-7200FGMABI TO FIND daily. [place] gummies 03/11/2025 Discontinued (Patient Stopped On Own)UNABLE TO FIND daily. [facility] gummies Active Problems Active Problems Problem ClassificationProblemDateDocumented DateEpisodic/ChronicAbdominal pain (9 sources)Right upper quadrant pain; Translations: [Right upper quadrant pain] Onset: 886944-34-9694OervbfhqPocbw bronchitis (3 sources)Acute bronchitis; Translations: [Acute bronchitis, unspecified] EpisodicAllergic reactions (3 sources)Contact dermatitis; Translations: [Unspecified contact dermatitis, unspecified cause]EpisodicBiliary tract disease (4 sources)Biliary calculus; Translations: [Calculus of gallbladder without cholecystitis without obstruction]Onset: 440359-18-0081FcqvqnolDyurzx; other and unspecified primary (3 sources)Malignant neoplasm of thorax; Translations: [Malignant neoplasm of thorax]Onset: 84-69-0055AjldulvSjuspxusveoeyv and diverticulitis (1 source)Diverticulosis of large intestine without perforation or abscess without bleeding; Translations: [DVRTCLOS LG INT NO PERF/ABSC W/O BL]Onset: 97-28-7404XpipqlaXcdjpnojfh disorders (1 source)Gastro-esophageal reflux disease without esophagitis; Translations: [GERD WITHOUT ESOPHAGITIS]Onset: 31-23-0137FpnphnxCoriclqmwjxzrdxv hemorrhage (5 sources)Hemorrhage of anus and rectum; Translations: [HEMORRHAGE OF ANUS AND RECTUM]Onset: 21-29-5538UeplistrSdikjklvfjcen symptoms and ill-defined conditions (6 sources)Dysuria; Translations: [Dysuria]EpisodicHemorrhoids (5 sources)Other hemorrhoids; Translations: [Residual hemorrhoidal skin tags] Onset: 99-17-1530NoafsqudJwbtggwveroc (4 sources)Osteoporosis; Translations: [Age-related osteoporosis without current pathological fracture]83-57-6075VqceukfTgmhh aftercare (1 source)Other terminal superintendent (current) drug therapy; Translations: [OTH LONGTERM CURRENT DRUG THERAPY]Onset: 63-19-4406NxarryzfHaovm nutritional; endocrine; and metabolic disorders (6 sources)Body mass index 25-29 - overweight; Translations: [Body mass index 28.0-28.9, adult]Onset: 02-14-9213JeadtakeCrhoa screening for suspected conditions (not mental disorders or infectious disease) (6 sources)Encounter for screening mammogram for malignant neoplasm of breast; Translations: [Patient encounter status]Onset: 78-95-7974QuqpqlxwYyebg skin disorders (2 sources)Disorder of skin of upper limb; Translations: [Disorder of the skin and subcutaneous tissue, unspecified]70-64-6441IyxlvqpjJzzfa skin disorders (1 source)Disorder of the skin and subcutaneous tissue, unspecified; Translations: [Disorder of the skin and subcutaneous tissue, unspecified]Onset: 13-97-6365ZotyzezzJbvfd upper respiratory infections (3 sources)Chronic sinusitis; Translations: [Chronic sinusitis, unspecified] ChronicOther upper respiratory infections (4 sources)Acute maxillary sinusitis; Translations: [Acute maxillary sinusitis, unspecified]Onset: 70-02-7255OswzsxgtRrzccahg codes; unclassified (1 source)Acquired absence of both cervix and uterus; Translations: [ACQUIRED ABSENCE BOTH CERVIX AND UTERUS]Onset: 10-86-0147NbukurxzGddfqgcb codes; unclassified (3 sources)Localized edema; Translations: [Localized edema]EpisodicResidual codes; unclassified (1 source)Pain, unspecified; Translations: [Pain, unspecified]Onset: 03-11-2025 EpisodicScreening and history of mental health and substance abuse codes (1 source)Personal history of nicotine dependence; Translations: [PERSONAL HISTORY OF NICOTINE DEPEND]Onset: 53-22-0437HkmyzpslHozvefh disorders (10 sources)Hypothyroidism, unspecified; Translations: [Hypothyroidism]Onset: 74-50-4190UpjeojbTdpeftjssnln (1 source)CONTACT W/AND (SUSP) EXPOS COVID-19; Translations: [CONTACT W/AND (SUSP) EXPOS COVID-19]Onset: 99-98-1109Zrfiptjpgapw (1 source)R10.11 - Right upper quadrant pain,K80.20 - Calculus of gallbladder without cholecystitis without obstructionUnclassified (2 sources)Autogenerated ProblemOnset: Past or Other Problems Problem ClassificationProblemDateDocumented DateEpisodic/ChronicBacterial infection; unspecified site (3 sources)Bacterial infectious disease; Translations: [Bacterial infection, unspecified, in conditions classified elsewhere and of unspecified site]Onset: 65-75-9724HqejoozwVlugdt; other and unspecified primary (3 sources)History of squamous cell carcinoma; Translations: [Personal history of malignant neoplasm of other organs and systems]Onset: EpisodicHeadache; including migraine (3 sources)Headache; Translations: [Headache, unspecified]Onset: 12-16-2014 EpisodicMalaise and fatigue (3 sources)Malaise and fatigue; Translations: [Other malaise and fatigue]Onset: 55-82-6343JtxkuxbkNlwmcdwgaok chest pain (3 sources)Chest pain; Translations: [Chest pain, unspecified]Onset: 11-12-2013 EpisodicOther nutritional; endocrine; and metabolic disorders (3 sources)Overweight; Translations: [Overweight]Onset: 51-40-9022MxlyihrtWkmbk skin disorders (3 sources)Disorder of skin and/or subcutaneous tissue; Translations: [Unspecified disorder of skin and subcutaneous tissue]Onset: 17-86-3840Spzvatej Residual codes; unclassified (1 source)Family history of malignant neoplasm of breast; Translations: [FAMILY HX MALIG NEOPLASM OF BREAST]Onset: 07-84-9614JlhqqtxhWkvrgtnt codes; unclassified (1 source)Family history of malignant neoplasm of prostate; Translations: [FAMILY HX MALIG NEOPLASM PROSTATE]Onset: 84-09-0859HiihlypmAmartdmdavg; intervertebral disc disorders; other back problems (4 sources)Neck pain; Translations: [Cervicalgia]Onset: 19-30-1399Ipsoquuw Results Test NameValueInterpretationReference RangeFacilityLaboratory - Chemistry and Chemistry - challengeOrdered By: Sveta Mariscal on 76-70-0594Tqhwoqojt Ql (U) [facility] ColumbusGlucose (U) [Mass/Vol][facility] ColumbusKetones Ql (U)[facility] pH (U)5 [pH][facility] Hospitalpecific gravity (U) [Rel density] 1.000[facility] WestUrobilinogen (U) [Mass/Vol]0.2 mg/dL [facility] WestLaboratory - Specimen informationOrdered By: Sveta Mariscal on 34-78-7560Xfghcxselb (U)clearRegency Hospital Cleveland West Color (U)amberRegency Hospital Cleveland WestLaboratory - UrinalysisOrdered By: Sveta Mariscal on 26-66-8762Skmxjpfgy esterase Test strip Ql (U)Negative [facility] WestNitrite Ql (U)NegativeRegency Hospital Cleveland WestProtein Ql (U)NegativeRegency Hospital Cleveland WestNo Panel InformationOrdered By: Sveta Mariscal on 53-09-8798Zbevd Occult BloodNegative [facility] WestMM TOMOSYNTHESIS SCREENING BIon 71-54-0698[address] [address] Mammography Report Signed Patient: AURELIA HARDEN MR#: [id number] : 1965 Acct:[id number] Age/Sex: 59 / F ADM Date: 12/10/24 Loc: MAMMO Attending Dr: Deven Stevenson D.O. Ordering Physician: Deven Stevenson D.O. Results: Date of Service: 12/10/24 Follow Up: Procedure(s): MM tomosynthesis screening BI Accession Number(s): [id number] cc: Sveta Mariscal M.D.; Deven Stevenson D.O. Patient Name: AURELIA HARDEN MR#: [id number] : 1965 Exam Date: 12/10/2024 Ordering Doctor: [...] breast cancer at age 86. LOCATION: [facility] BREAST COMPOSITION: The breasts are heterogeneously dense,which [...] Signed By: 12/10/24 1536 DD/ 34 TD/TT: Emergency Medical Technician:TBHRadiology, Radiologist, - 12/10/2024 [place] [address] Mammography Report Signed Patient: AURELIA HARDEN MR#: [id number] : 1965 Acct:[id number] Age/Sex: 59 / F ADM Date: 12/10/24 Loc: MAMMO Attending Dr: Deven Stevenson D.O. Ordering Physician: Deven Stevenson D.O. Results: Date of Service: 12/10/24 Follow Up: Procedure(s): MM tomosynthesis screening BI Accession Number(s): [id number] cc: Sveta Mariscal M.D.; Deven Stevenson D.O. Patient Name: AURELIA HARDEN MR#: [id number] : 1965 Exam Date: 12/10/2024 Ordering Doctor: [...] breast cancer at age 86. LOCATION: [facility] BREAST COMPOSITION: The breasts are heterogeneously dense,which [...] M.D. Signed By: 12/10/241535 DD/ 34 TD/TT: Emergency Medical Technician: [facility] HealthcareRadiology Study observation (narrative)[facility] TOMOSYNTHESIS SCREENING BIOrdered By: Radiologist Radiology on 29-64-5045NSHO Language123 Work Phone: basophils Auto (Bld) [#/Vol]on 41-46-7011Tmphxjddl (Bld) [#/Vol]Automated basophil count0.0-0.1FWayne Hospital Basophils/100 WBC Auto (Bld)on 10-24-4084Lrmoisbkc/100 WBC (Bld)Automated basophil %0.2-2.0[facility] WestEosinophils/100 WBC Auto (Bld) on 02-27-3907Ztpjbltkqbq/100 WBC (Bld)Automated eosinophil %0.9-7.0[facility] WestErythrocyte distribution width Auto (RBC) [Ratio]on 18-53-9607Dwyxbnmsavt distribution width (RBC) [Ratio]Erythrocyte distribution width [Ratio] by Automated count11.0-15.0[facility] Estimated glomerular filtration rate (GFR) non- Americanon 09-01-2024 GFR/1.73 sq M.predicted among non-blacks MDRD (S/P/Bld) [Vol rate/Area]Estimated glomerular filtration rate (GFR) non- AmericanLow>=60 mL/min/1.73m 2 [facility] WestGlobulin Calc (S) [Mass/Vol]on 09-01-2024 Globulin (S) [Mass/Vol]Serum globulin measurement by calculation (mass/volume) [facility] WestHematocrit Auto (Bld) [Volume fraction]on 45-19-4944Bwdulatjra (Bld) [Volume fraction]Hematocrit [Volume Fraction] of Blood by Automated count36.0-48.0[facility] CenterHemoglobin [Mass/volume] in Bloodon 45-01-1158Uztfqgwoci (Bld) [Mass/Vol]Hemoglobin [Mass/volume] in Blood12.0-16.0[facility] WestLaboratory - Chemistry and Chemistry - challengeon 32-85-3846Xknaksf [Mass/Vol]3.7 g/dL 3.4-5.0[facility] WestALP [Catalytic activity/Vol]97 U/L46-116 [facility] WestALT [Catalytic activity/Vol]15 U/L14-59 [facility] WestAST [Catalytic activity/Vol]16 U/L15-37 [facility] WestBilirubin [Mass/Vol]0.4 mg/dL0.2-1.0[facility] WestCalcium [Mass/Vol]9.2 mg/dL8.5-10.1FWayne HospitalChloride [Moles/Vol]106 mmol/W79-800GnbklltwiRegency Hospital Cleveland WestCO2 [Moles/Vol]31.0 mmol/L21.0-32.0[facility] Creatinine [Mass/Vol]1.01 mg/dL0.55-1.02[facility] WestFree T4 [Mass/Vol]0.95 ng/dL0.76-1.46[facility] WestGFR/1.73 sq M.predicted MDRD (S/P/Bld) [Vol rate/Area]mL/min/{1.73_m2}>=60 mL/min/1.73m 2 [facility] WestGlucose [Mass/Vol]87 mg/gO81-205PppobpkrbRegency Hospital Cleveland WestPotassium [Moles/Vol]3.9 mmol/L3.5-5.1FWayne HospitalProtein [Mass/Vol]6.9 g/dL6.4-8.2FW[facility] Hospital Sodium [Moles/Vol]143 mmol/R594-311QqgtlbzwoRegency Hospital Cleveland WestTSH Qn2.491 m[IU]/L0.358-3.740[facility] WestUrea nitrogen [Mass/Vol]18.0 mg/dL7.0-18.0[facility] WestUrea nitrogen/Creatinine [Mass ratio]17.8 mg/mgRegency Hospital Cleveland WestLaboratory - Hematology and Cell countson 56-20-4237Usiwotaz granulocytes/100 WBC (Bld)0.2 %0.0-0.5FWayne HospitalLeukocytes [#/volume] corrected for nucleated erythrocytes in Blood by Automated counon 86-14-3681RXE corrected for nucl RBC Auto (Bld) [#/Vol]Leukocytes [#/volume] corrected for nucleated erythrocytes in Blood by Automated coun4.0-11.0[facility] WestLymphocytes Auto (Bld) [#/Vol]on 96-72-9071Qwuowzwrnek (Bld) [#/Vol]Lymphocytes [#/volume] in Blood by Automated count1.2-3.8[facility] WestLymphocytes/100 WBC Auto (Bld)on 30-87-3795Apuaixodoqd/100 WBC (Bld)Lymphocytes/100 leukocytes in Blood by Automated count20.5-60.0[facility] HospitalH Auto (RBC) [Entitic mass]on 90-76-0325VCH (RBC) [Entitic mass]MCH [Entitic mass] by Automated count26.7-34.0[facility] WestMCHC Auto (RBC) [Mass/Vol]on 25-22-8277WVBW (RBC) [Mass/Vol]MCHC [Mass/volume] by Automated count29.9-35.2FWayne HospitalMCV Auto (RBC) [Entitic vol]on 75-27-4573NZB (RBC) [Entitic vol]MCV [Entitic volume] by Automated count 81.0-99.0[facility] WestMonocytes Auto (Bld) [#/Vol]on 68-07-8033Ubiejkrot (Bld) [#/Vol]Automated blood monocyte count0.3-0.8[facility] WestMonocytes/100 WBC Auto (Bld)on 95-39-0448Eqmzbxgiw/100 WBC (Bld)Automated monocyte %1.7-12.0[facility] Neutrophils Auto (Bld) [#/Vol]on 47-17-9027Msdueuhqslf (Bld) [#/Vol]Neutrophils [#/volume] in Blood by Automated count1.4-6.5FW[facility] Hospital Neutrophils/100 WBC Auto (Bld)on 27-83-5109Avddcuatvyi/100 WBC (Bld)Automated neutrophil %43.0-75.0[facility] WestNo Panel Informationon 01-22-6878Tlkhkijpdqu # (Auto)0.1 10 3/uL0.0-0.7FWayne HospitalImmature Granulocyte # (Auto)0.01 10 3/uL0.00-0.03[facility] WestPlatelet mean volume Auto (Bld) [Entitic vol]on 88-63-4449Mxpybdgr mean volume (Bld) [Entitic vol]Platelet mean volume [Entitic volume] in Blood by Automated count9.5-13.5FWayne HospitalPlatelets Auto (Bld) [#/Vol]on 88-29-0096Rgmkifvhl (Bld) [#/Vol]Platelets [#/volume] in Blood by Automated xcoap652-958AuuphmrlcRegency Hospital Cleveland WestRBC Auto (Bld) [#/Vol]on 54-60-7219KFS (Bld) [#/Vol]Erythrocytes [#/volume] in Blood by Automated count 4.20-5.40[facility]. Mary Hospitalerum or plasma albumin/globulin mass ratioon 64-17-2508Ozxevyx/Globulin [Mass ratio]Serum or plasma albumin/globulin mass ratioMount St. Mary Hospitalerum or plasma anion gap determinationon 96-66-4449Hfpzb gap [Moles/Vol]Serum or plasma anion gap determinationRegency Hospital Cleveland WestBasophils Auto (Bld) [#/Vol]on 63-00-8656Mmjrqzhkh (Bld) [#/Vol]0.1 10 3/uL0.0-0.1FWayne HospitalBasophils/100 WBC Auto (Bld)on 24-98-3302Bkslmqojb/100 WBC (Bld)1.2 % 0.2-2.0[facility] WestCholesterol in LDL Calc [Mass/Vol]on 20-19-2445Wvvvwgbqywz in LDL [Mass/Vol]133.0 mg/dLRegency Hospital Cleveland WestComment on above:<100 mg/dl RAAPZDS638-089 mg/dl NEAR OR ABOVE QVCWTKC338- 159 mg/dl BORDERLINE UPVS619-047 mg/dl HIGH>190 mg/dl VERY HIGHCholesterol in VLDL Calc [Mass/Vol]on 05-09-0460Qgjtckoqwzy in VLDL [Mass/Vol]21.8 mg/dL [facility] WestEosinophils/100 WBC Auto (Bld)on 09-06-2023 Eosinophils/100 WBC (Bld)2.2 %0.9-7.0[facility] Erythrocyte distribution width Auto (RBC) [Ratio]on 16-84-8451Uyvcfbszvly distribution width (RBC) [Ratio]14.0 %11.0-15.0[facility] Estimated glomerular filtration rate (GFR) non- Americanon 09-06-2023 GFR/1.73 sq M.predicted among non-blacks MDRD (S/P/Bld) [Vol rate/Area]54 mL/min/{1.73_m2}>=60[facility] WestGlobulin Calc (S) [Mass/Vol]on 91-66-4730Nuvpqqwu (S) [Mass/Vol]3.5 g/dLRegency Hospital Cleveland WestHematocrit Auto (Bld) [Volume fraction]on 89-64-9692Zrwrtsifls (Bld) [Volume fraction]43.8 %36.0-48.0[facility] WestHemoglobin [Mass/volume] in Bloodon 95-66-5075Vdrkbleecb (Bld) [Mass/Vol]13.6 g/dL12.0-16.0 [facility] WestLaboratory - Chemistry and Chemistry - challengeon 73-62-5750Cacyjyc [Mass/Vol]3.7 g/dL3.4-5.0[facility] WestALP [Catalytic activity/Vol]81 U/S32-392PkxpmpokhRegency Hospital Cleveland WestALT [Catalytic activity/Vol]18 U/B49-71NjihhqrgdRegency Hospital Cleveland West AST [Catalytic activity/Vol]14 U/X99-29FuvxmdbvcRegency Hospital Cleveland West Bilirubin [Mass/Vol]0.3 mg/dL0.2-1.0[facility] [place] WestCalcium [Mass/Vol]9.2 mg/dL8.5-10.1FWayne HospitalChloride [Moles/Vol] 104 mmol/G66-428EwfdqqhyhRegency Hospital Cleveland WestCholesterol [Mass/Vol]216 mg/dL <=200[facility] [place] WestCholesterol in HDL [Mass/Vol]62 mg/dL40-60 [facility] [place] WestComment on above:> or =60 mg/dl - LOW CARDIOVASCULAR RISK<40 mg/dl - HIGH CARDIOVASCULAR RISKCO2 [Moles/Vol]29.2 mmol/L21.0-32.0[facility] [place] WestCreatinine [Mass/Vol]1.04 mg/dL 0.55-1.02[facility] [place] WestGFR/1.73 sq M.predicted MDRD (S/P/Bld) [Vol rate/Area]mL/min/{1.73_m2}>=60[facility] [place] WestGlucose [Mass/Vol]84 mg/eA78-693CxllemexeRegency Hospital Cleveland WestPotassium [Moles/Vol] 4.1 mmol/L3.5-5.1FWayne HospitalProtein [Mass/Vol]7.2 g/dL 6.4-8.2FWright-Patterson Medical Centerodium [Moles/Vol]143 mmol/T097-490 [facility] [place] WestTriglyceride [Mass/Vol]109 mg/dL<=150[facility] [place] WestTSH Qn1.534 m[IU]/L0.358-3.740[facility] [place] WestUrea nitrogen [Mass/Vol]14.0 mg/dL7.0-18.0[facility] [place] WestUrea nitrogen/Creatinine [Mass ratio]13.5 mg/mgRegency Hospital Cleveland WestLaboratory - Hematology and Cell countson 08-82-8854Ypbxhqsj granulocytes/100 WBC (Bld)0.2 %0.0-0.5FWayne Hospital Leukocytes [#/volume] corrected for nucleated erythrocytes in Blood by Automated counon 11-31-1524VNT corrected for nucl RBC Auto (Bld) [#/Vol]4.9 10 3/uL 4.0-11.0[facility] [place] WestLymphocytes Auto (Bld) [#/Vol]on 32-56-0507Shxmkmxxvys (Bld) [#/Vol]1.9 10 3/uL1.2-3.8[facility] [place] WestLymphocytes/100 WBC Auto (Bld)on 37-84-3582Roldaoqynni/100 WBC (Bld)39.6 % 20.5-60.0[facility] HospitalH Auto (RBC) [Entitic mass]on 64-35-4205GOW (RBC) [Entitic mass]28.6 pg26.7-34.0[facility] [place] WestMCHC Auto (RBC) [Mass/Vol]on 82-56-5806FYIJ (RBC) [Mass/Vol]31.1 g/dL 29.9-35.2FWayne HospitalMCV Auto (RBC) [Entitic vol]on 98-55-0909XAX (RBC) [Entitic vol]92.0 fL81.0-99.0[facility] [place] WestMonocytes Auto (Bld) [#/Vol]on 20-97-0981Bvccdvxtg (Bld) [#/Vol]0.3 10 3/uL0.3-0.8[facility] [place] WestMonocytes/100 WBC Auto (Bld)on 39-52-2024Neqsgrcnj/100 WBC (Bld)5.7 %1.7-12.0[facility] [place] Neutrophils Auto (Bld) [#/Vol]on 77-14-2154Fjhvhchckxd (Bld) [#/Vol]2.5 10 3/uL 1.4-6.5FWayne HospitalNeutrophils/100 WBC Auto (Bld)on 79-94-5461Amvblbknswc/100 WBC (Bld)51.1 %43.0-75.0[facility] [place] WestNo Panel Informationon 44-10-5953Hncbvraqkwt # (Auto)0.1 10 3/uL0.0-0.7 [facility] [place] WestImmature Granulocyte # (Auto)0.01 10 3/uL 0.00-0.03[facility] [place] WestPlatelet mean volume Auto (Bld) [Entitic vol]on 89-11-0064Wskrwgvf mean volume (Bld) [Entitic vol]9.2 fL9.5-13.5 [facility] [place] WestPlatelets Auto (Bld) [#/Vol]on 09-06-2023 Platelets (Bld) [#/Vol]280 10 3/jT119-897XkkbbcyssRegency Hospital Cleveland WestRBC Auto (Bld) [#/Vol]on 57-17-0612JQR (Bld) [#/Vol]4.76 10 6/uL4.20-5.40[facility] Mary Hospitalerum or plasma albumin/globulin mass ratioon 09-06-2023 Albumin/Globulin [Mass ratio]1.1 {ratio}[facility] Hospitalerum or plasma anion gap determinationon 19-40-8600Lilmv gap [Moles/Vol]13.9 mmol/L [facility] Hospitalerum or plasma total cholesterol/high density lipoprotein (HDL) cholesterol mass elis 71-73-5183Wxzahjhneiq.total/Cholesterol in HDL [Mass ratio]3.5 {ratio}[facility] [place] WestComment on above:3.3 - 4.4 LOW RISK4.4 - 7.1 AVERAGE RISK7.1 - 11.0 MODERATE RISK>11.0 HIGH RISKCovid-19 PCR (CVDTBH)on 57-19-9048PTWD-CoV-2 (COVID-19) RNA LUDWIG+probe Ql (Unsp spec)Not detectedNormalNOT DETECTEDThe [facility] Medical CenterComment on above: Result Comment: This test is not yet approved or cleared by the [place] FDA. When there are no FDA-approved or cleared tests available, and other criteria are met, FDA can make tests available under an emergency access mechanism called an Emergency Use Authorization (EUA). The EUA for this test is supported by the Plato of Health and Human Service's (HHS's) declaration [...] of clinical signs and symptoms consistent with SARS-CoV-2.Performed By: #### CVDTBH #### [facility] [address], [place] [address] Dr[address] Solange AllenMG MAMM SCREEN 3D KERI CADon 38-13-6764PJ MAMM SCREEN 3D KERI CAD Patient: AURELIA HARDEN Exam Date: 10/28/2021 : 1965 Gender:F Ordering : DR SVETA MARISCAL M.D. Admission #: [id number] Family : DR DEVEN STEVENSON . Order #: [id number] CLICK HERE TO VIEW EXAM RADIOLOGY REPORT [...] breast cancer at age 86. LOCATION: [facility] BREAST COMPOSITION: Extremely dense, which [...] by: Michelle Horton MD on 10/28/2021 at 08:26NoUniversity Hospitals Beachwood Medical CenterFREE T4on 56-56-3896Umpq T4 [Mass/Vol]0.92 ng/dLNormal0.78-2.19[facility] Comment on above:Performed By: #### FT4 #### [facility] [address] [address] [address] Solange CoronadoID PROFILEon 96-49-5462GMFR-HDL RATIO NORMSCrystal Clinic Orthopedic CenterComment on above:Result Comment: 3.3 - 4.4 LOW RISK 4.4 - 7.1 AVERAGE RISK 7.1 - 11.0 MODERATE RISK >11.0 HIGH RISKPerformed By: #### LIPID, TSH, CMP #### [facility] [address] [address] [address] Solange AllenCholesterol [Mass/Vol]192 mg/dLNormal<=200[facility] Comment on above:Performed By: #### LIPID, TSH, CMP #### [facility] [address] [address] [address] Solange AllenCholesterol in HDL [Mass/Vol]59 mg/dLUniversity Hospitals Samaritan Medical Center Comment on above:Performed By: #### LIPID, TSH, CMP #### [facility] [address] [address] [address] Solange AllenCholesterol in LDL [Mass/Vol]118.8 mg/dLUniversity Hospitals Samaritan Medical CenterComment on above:Performed By: #### LIPID, TSH, CMP #### [facility] [address] [address] [address] Solange AllenCholesterlorenzo.total/Cholesterol in HDL [Mass ratio]3.3 {ratio} NormalBarney Children'S Medical CenterComment on above:Performed By: #### LIPID, TSH, CMP #### [facility] [address] [address] [address] Solange AllenHDL NORMAL> or = 60 mg/dl - LOW CARDIOVASCULAR RISK <40 mg/dl - HIGH CARDIOVASCULAR RISKUniversity Hospitals Samaritan Medical CenterComment on above:Performed By: #### LIPID, TSH, CMP #### [facility] [address] [address] [address] Solange AllenLDL CALC NORMALSEE St. Mary's Medical CenterComment on above:Result Comment: <100 mg/dl OPTIMAL 100 - 129 mg/dl NEAR OR ABOVE OPTIMAL 130 - 159 mg/dl BORDERLINE HIGH 160 - 189 mg/dl HIGH >190 mg/dl VERY HIGH Performed By: #### LIPID, TSH, CMP #### [facility] [address] [address] [address] Solange AllenTriglyceride [Mass/Vol]71 mg/dLNormal<=150The [facility] Comment on above:Performed By: #### LIPID, TSH, CMP #### [facility] [address] [address] [address] Solange AllenVLDL CALC14.2 mg/dLNormalThe [facility] Medical CenterComment on above: Performed By: #### LIPID, TSH, CMP #### [facility] [address] [place] [address] Dr. Solange AllenPROF 14(COMP METB)on 37-62-7143Eowffby [Mass/Vol]3.9 g/dLNormal 3.5-5.0Bar[facility] Children'S Medical CenterComment on above:Performed By: #### LIPID, TSH, CMP #### [facility] [address] [place] [address] Dr. Solange AllenAlbumin/Globulin [Mass ratio]1.1 {ratio}NormalBarney Children'S Medical CenterComment on above:Performed By: #### LIPID, TSH, CMP #### [facility] [address] [place] [address] Dr. Solange Herrera [Catalytic activity/Vol]84 U/JAatizu09-748Hdz [facility] CenterComment on above:Performed By: #### LIPID, TSH, CMP #### [facility] [address] [place] [address] Dr. Solange Waltre [Catalytic activity/Vol]18 U/LNormal9-52The [facility] Comment on above:Performed By: #### LIPID, TSH, CMP #### [facility] [address] [place] [address] Dr. Solange Lund gap [Moles/Vol]11.0 mmol/LNormalThe [facility] Comment on above:Performed By: #### LIPID, TSH, CMP #### [facility] [address] [address] [address] Solange AllenAST [Catalytic activity/Vol]14 U/FCqxerj43-28Zex [facility] CenterComment on above:Performed By: #### LIPID, TSH, CMP #### [facility] [address] [address] [address] Solange AllenBilirubin [Mass/Vol]0.3 mg/dLNormal0.2-1.3[facility] Comment on above:Performed By: #### LIPID, TSH, CMP #### [facility] [address] [address] [address] Solange AllenCalcium [Mass/Vol]9.2 mg/dLNormal8.4-10.2[facility] Comment on above:Performed By: #### LIPID, TSH, CMP #### [facility] [address] [address] [address] Solange AllenChloride [Moles/Vol]106 mmol/LPmmymo31-568Mkl [facility] Comment on above:Performed By: #### LIPID, TSH, CMP #### [facility] [address] [address] [address] Solange AllenCO2 [Moles/Vol]26.6 mmol/DDijmic24.0-30.0[facility] Comment on above:Performed By: #### LIPID, TSH, CMP #### [facility] [address] [address] [address] Solange AllenCreatinine [Mass/Vol]1.27 mg/dLCritically high0.52-1.04The [facility] CenterComment on above:Performed By: #### LIPID, TSH, CMP #### [facility] [address] [address] [address] Solange VázquezGFR-AF YAHVFHDK83 mL/min/1.35c5Napbwfctyi low>=60The [facility] CenterComment on above:Performed By: #### LIPID, TSH, CMP #### [facility] [address] [address] [address] Solange VázquezGFR-NON AF DIUEJGPW61 mL/min/1.08x9Uowecutcxw low>=60The [facility] CenterComment on above:Performed By: #### LIPID, TSH, CMP #### [facility] [address] [place] [address] Dr. Solange AllenGlobulin (S) [Mass/Vol]3.4 g/dLNormMercy Health Willard HospitalComment on above:Performed By: #### LIPID, TSH, CMP #### [facility] [address] [place] [address] Dr. Solange AllenGlucose [Mass/Vol]96 mg/iIVrijvy72-112Cot [facility] Comment on above:Performed By: #### LIPID, TSH, CMP #### [facility] [address] [place] [address] Dr. Solange AllenPotassium [Moles/Vol]4.6 mmol/LNormal3.4-5.0The [facility] Comment on above:Performed By: #### LIPID, TSH, CMP #### [facility] [address] [place] [address] Dr. Solange AllenProtein [Mass/Vol]7.3 g/dLNormal6.1-8.2The [facility] Comment on above:Performed By: #### LIPID, TSH, CMP #### [facility] [address] [place] [address] Dr. Solange AllenSodium [Moles/Vol]139 mmol/WJfgssh169-932Weu [facility] Comment on above:Performed By: #### LIPID, TSH, CMP #### [facility] [address] [place] [address] Dr. Solange AllenUrea nitrogen [Mass/Vol]17.0 mg/dLNormal7.0-17.0The [facility] CenterComment on above:Performed By: #### LIPID, TSH, CMP #### [facility] [address] [place] [address] Dr. Solange Sandoval nitrogen/Creatinine [Mass ratio]13.4 mg/mgNoUniversity Hospitals Beachwood Medical CenterComment on above:Performed By: #### LIPID, TSH, CMP #### [facility] [address] [address] [address] Solange Paris 06-42-2855RJK1.727 uIU/mLNormal0.470-4.680[facility]'S Medical CenterComment on above:Performed By: #### LIPID, TSH, CMP #### [facility] [address], [place] [address] Dr. Solange Stanton Peoples HospitalComment on above: Result Comment: <0.34 UIU/ml HYPERTHYROID 0.34-5.60 UIU/ml EUTHYROID >5.60 UIU/ml HYPOTHYROIDPerformed By: #### LIPID, TSH, CMP #### [facility] [address] [place] [address] Dr. Solange Allen Vital Signs Date TimeVital SignValuePerforming ZbveqrileKreqrylh11-30-8998 09:44-0400Body cqzumy532.2 cmMicjessi Sulemans DO Work Phone: [facility]09-24-2025 09:44-0400Body mass index (BMI) [Ratio]29.51 kg/x8Wljvbcujessi Shells DO Work Phone: [facility]09-24-2025 09:44-0400Body .46 kgMicjessi Shells DO Work Phone: [facility]09-24-2025 09:44-0400Diastolic blood ylvcfivy56 mm[Hg]Valentina Valdivia DO Work Phone: [facility]09-24-2025 09:44-0400Heart rate 86 /minMicyoungalon Sulemans DO Work Phone: [facility]09-24-2025 09:44-0400Systolic blood fnfpqzya512 mm[Hg]Valentina Valdivia DO Work Phone: [facility]08-21-2025 10:47-0400Body nedrdi109.18 cmSveta Mariscal MD Work Phone: [facility]08-21-2025 10:47-0400 Body mass index (BMI) [Ratio]30.4 kg/t6AgesevSveta Mariscal MD Work Phone: [facility]08-21-2025 10:47-0400 Body bqlyrp48.99 kgSveta Mariscal MD Work Phone: [phone] [place] [facility]08-21-2025 10:47-0400 Diastolic blood hafujfra73 mm[Hg]Sveta Mariscal MD Work Phone: [phone] [place], [place] [address]808-21-2025 10:47-0400 Heart rate79 /Mic Mariscal MD Work Phone: [phone] [place] [facility]08-21-2025 10:47-0400 Systolic blood acgysmzp291 mm[Hg]Sveta Mariscal MD Work Phone: [phone] [place] [facility]03-20-2025 08:28-0400 Body .18 cmRegency Hospital [place] [facility]03-20-2025 08:28-0400Body mass index (BMI) [Ratio]30.1 kg/l6EoivlltrdRegency Hospital [place] West03-20-2025 08:28-0400Body mqfbzy41.31 [facility]03-20-2025 08:28-0400Diastolic blood eymprjrc15 mm[Hg][facility] [place] [facility] 09-04-2024 08:28-0400Heart rate91 /[facility] 09-04-2024 08:28-0400Systolic blood twbradvr037 mm[Hg][facility] [place] [facility]03-26-2024 08:29-0400Body fkhmow972.18 cmRegency Hospital [place] West03-26-2024 08:29-0400Body mass index (BMI) [Ratio]29.4 kg/j2EulpjseatRegency Hospital [place] West03-26-2024 08:29-0400Body zkywxa54.27 [facility]03-26-2024 08:29-0400Diastolic blood kamsgukr08 mm[Hg] [facility] [place] [facility]03-26-2024 08:29-0400Heart rate82 /[facility]03-26-2024 08:29-0400Systolic blood utiktmod738 mm[Hg] [facility]11-02-2023 13:00-0400Body .18 cmSveta Mariscal Other [employer] Other 718720-43-9553 13:00-0400Body mass index (BMI) [Ratio] 29.44 kg/m2Ehumch Loida Other [employer] Other 11-02-2023 13:00-0400Body rstauj77.28 kgSveta Loida Other [employer] Other 921354-74-0887 13:00-0400Diastolic blood phsxumlp33 mm[Hg] Sveta Loida Other [employer] Other 11-02-2023 13:00-0400Systolic blood fvdlecrv654 mm[Hg] Sveta Mariscal Other [employer] Other Encounters Encounter DateEncounter TypeCare ProviderFacilityStart: 04-13-2025 End: 66-14-3015Zazmeulbk encounterConcepción Huynh CMASelect Medical [facility] Physicians General SurgeryStart: 03-16-2025 End: 04-30-1083zdnfyxheizZbqclnn HARWOODFacility:Occupational Health and WellnessStart: 03-11-2025 End: 23-83-1196Xztwrv outpatient new 45 minutesMichael E Grillis DO Work Phone: [facility] General SurgeryComment on above: Gallbladder disease (Primary Dx); Skin lesion of left armStart: 03-11-2025 End: 96-84-2491kcqxpjfjhmDUSRYVFGundersen [facility] Start: 97-46-2719mqqcengycoKRKPJAOregon Hospital for the Ins[facility] Ambulatory PPGStart: 02-27-2025 End: 40-45-4330Kdibtytfs encounterMichael E Grillis DO Work Phone: [facility] General SurgeryStart: 02-26-2025 ambulatorySveta Mariscal MD Work Phone: [facility] Work Phone: Start: 61-65-9375Djt-patient / Non-visitSveta Mariscal MD-[facility] Work Phone: Start: 02-05-2025 End: 85-85-1317vxxpmymkmqFzawwt E Braun MD Work Phone: [facility] Work Phone: Start: 02-05-2025 End: 90-00-6735Yrnjeys encounter procedureSveta Mariscal MD-[facility] Work Phone: Start: 12-10-2024 End: 51-68-5100Nfxoiteyz Result EncounterCorey Elva DO Work Phone: [facility] External Department UnsolicitedStart: 12-10-2024 End: 21-24-3161Vnexgoelx Result EncounterCorey Elva DO Work Phone: noms External Department UnsolicitedStart: 09-04-2024 End: 86-74-4586hmuhvksknpElvrlrcspRiverview Health Institute Work Phone: Start: 09-04-2024 End: 26-92-7277Kzgyrus encounter procedureVince Physician Group-[facility] Work Phone: Start: 93-09-1825Xel-patient / Non-visitFirrossy Physician Group-[facility] Work Phone: Start: 09-11-2023 End: 32-43-2197qqfxelsdfhMixncvlpcPremier Health [facility] Work Phone: Start: 09-11-2023 End: 17-12-3449Dcrpflk encounter procedureVince Physician Group-[facility] Work Phone: Start: 41-93-4739Nqk-patient / Non-visitFirelands Physician [facility] Work Phone: Start: 65-85-5548Mwpznez encounter [facility]: 22-68-4297Jxo-patient / Non-visitSampson [facility] Work Phone: Start: 07-11-2023(Televisit) TelevisitSveta [facility] Centertart: 07-11-2023 End: 06-02-3368tbptwogvmuIdpzsz Mariscal Other [employer] Other Start: 06-05-2023 End: 16-89-3864jvwztecmgkJpxhwj [employer] Other [employer] Other Start: 62-98-3280Ibfqaoidg encounterMarlton Rehabilitation Hospitalkristine [facility] Centertart: 04-19-2023 End: 39-29-4763ngskmjdbwmAqgfoa Mariscal Other [employer] Other Start: 91-94-6436Giaoyoouu for general adult medical examination without abnormal findingsSveta [facility] Centertart: 60-97-6053Axkytmgc preventive med est patient 40-64yrsMarcia [facility] Centertart: 77-77-3815Ouuok health examinationSveta Mariscal Other [employer] Other Start: 05-47-6332Lcgqhkjea for preprocedural laboratory examinationDR VALENTINA Chappell [facility] Administrationtart: 05-24-2022 End: 33-18-0298meuizbphvmIN VALENTINA Hartcility:R1Cudqd: 05-19-2022 End: 37-71-2242spbfnyhvmyCA VALENTINA Hartcility:T4Qjcma: 05-19-2022 End: 07-25-2558Vxkuwatgv for preprocedural laboratory examinationDR VALENTINA Hartcility:O3Dqiau: 47-82-5580Oraryyrsu for other preprocedural examination DR VALENTINA [facility]appell [facility]Start: 05-10-2022 End: 82-64-3796chedwkzxpaUS MARCIA E BRAUNFacility:R2Ljeuh: 05-10-2022 End: 71-56-5867Wjkutbvqd for other preprocedural examinationDR SVETA MARISCAL Facility:A1Zbmps: 10-28-2021 End: 27-36-0496gxrjylnwodAN MARCIA E BRAUNFacility:I6Rqxhd: 31-22-5088Xyynwbata for general adult medical examination without abnormal findingsDR SVETA MARISCAL [facility] Memorialtart: 08-15-2021 End: 10-26-7420xsxwwtrrtdKW MARCIA E BRAUNFacility:N3Jhmss: 08-15-2021 End: 35-86-9890Etenczjqo for general adult medical examination without abnormal findingsDR SVETA MARISCALFacility:B0Jvbih: 69-59-1877Sxgigowdtpjih examination normalSarydwayne Loid[employer] Other [place] [employer] Other Procedures DateProcedureProcedure DetailPerforming ClinicianStart: 33-74-0315CF TOMOSYNTHESIS SCREENING BICorey Elva DO Work Phone: Start: 07-21-4631WhmruhlvusbKhhtdhh Sulemans DO Work Phone: Plan of Treatment DateCare ActivityDetailAuthorStart: 96-74-9432Wlfjscqdx for malignant neoplasm of colonColonoscopyProUab [facility] Health SystemStart: 05-36-2792Njfsy BMI Screening Adult BMI ScreeningProC[facility] Clinic [facility] SystemStart: 44-56-8227Wafskkz Screening Tobacco ScreeningProC[facility] SystemStart: 06-09-2025 End: 35-56-6966Bvqemxi encounter fehbfvnri93/23/2025 9:30 AM EST Office Visit [facility] [address], [id number] Ramona Hernández, [employer] [address] [place] [address] [facility] SurgeryStart: 05-26-2025 End: 16-98-7878Rlmlddbze to same day surgery xypaie2305/26/2025 7:30 AM EST - 05/26/2025 9:00 AM EST Surgery [facility] - Surgery [address] [place] [address] Valentina Valdivia, DO [address] [place], [place] [id number] DAVINCI CHOLECYSTECTOMY [61225 (CPT ) +1 more][facility] - SurgeryComment on above:DAVINCI CHOLECYSTECTOMY [17525 (CPT ) +1 more]Start: 05-26-2025 End: 13-37-9698Omhpcasawlx surg cholecystectomyDAVINCI CHOLECYSTECTOMY gallbladder disease 05/26/2025 7:30 AM ESTFREMONT SURGERYStart: 05-26-2025 Subsequent hospital visit by jlcdfrwua89/09/2025 7:30 AM EST Hospital Encounter [facility] - Surgery [address] [place], [place] [id number] Valentina Valdivia, DO [address] [place] [address] [facility] - SurgeryStart: 05-18-2025 End: 62-38-0581Hlehdgr encounter fowlusnnn94/01/2025 11:15 AM EST Procedure visit [facility] - Pre Admit [address] [place] [id number] [phone] [facility] - Pre AdmitStart: 05-18-2025 End: 19-56-6523Zvumkwl encounter zoyspyuaj99/01/2025 9:30 AM EST Office Visit [facility] General Surgery [address] [place], [place] Ramona Hernández, [employer] [address] [place] [address] [facility] SurgeryStart: 03-11-2025 End: 69-19-2398Ochxgfj encounter xqghfqrap17/24/2025 9:45 AM EDT Office Visit [facility] General Surgery [address] [place], [id number] Valentina Valdivia DO [address] [place] [address] [facility] SurgeryStart: 45-33-3286Azhcdws referralTrihealth Good Samaritan Hospital Work Phone: Start: 80-32-7451OJYSM-19 Vaccine ( season) COVID-19 Vaccine ( season)[facility] [place] [facility] SystemStart: 02-16-2025 Influenza vaccinationInfluenza VaccineProUab [facility] Health SystemStart: 07-14-2023 Adult BMI ScreeningAdult BMI ScreeningProC[facility] SystemStart: 09-11-2013 Administration of varicella zoster vaccineZoster (Shingles) Vaccine (1 of 2) [facility] [place] [facility] SystemStart: 37-11-3885QSfH,Tdap and Td Vaccines (1 - Tdap) DTaP,Tdap and Td Vaccines (1 - Tdap)[facility] [place] [facility] SystemStart: 09-11-1981 Adult BMI Follow Up PlanAdult BMI Follow Up PlanProC[facility] SystemStart: 29-63-4388Uanbnhmciw ScreeningDepression ScreeningEast [place] [facility] Hospital SystemStart: 66-07-1285Hlgzodk ScreeningTobacco ScreeningEast [place] Regional Hospital System End: 81-27-1262KIZ panel - Blood by Automated countCBC without diff Lab Routine Gallbladder disease 1 Occurrences starting 03/11/2025 until 03/11/2026[facility] Work Phone: Comment on above:1 Occurrences starting 03/11/2025 until 03/11/2026 End: 18-60-1015Nqzhjvxankmno metabolic 2000 panel - Serum or PlasmaComprehensive metabolic panel Lab Routine Gallbladder disease 1 Occurrences starting 03/11/2025 until 03/11/2026ProMedims Health SystemComment on above:1 Occurrences starting 03/11/2025 until 03/11/2026T Abdomen and Pelvis WO contrastRegency Hospital [place] WestDXA Skeletal system.axial Views for bone densityRegency Hospital [place] WestPatient referralTrihealth Good Samaritan Hospital Work Phone: End: 51-38-8738Wxamhpya Procedure / SurgeryProC[facility] SystemComment on above:1 Occurrences starting 03/11/2025 until 03/11/2026US GallbladderRegency Hospital [place] [facility] Payers DatePayer CategoryPayerPolicy [id number] Care Other (unspecified)[employer] [id number] [id number] .[id number] .[id number] 2..[id number] Health [id number] Private Health InsuranceAetna Insurance [id number] Social History DateTypeDetailFacilityUnknown if ever smokedKeeseville [employer]on Other Start: 07-29-2020 End: 94-48-2089Jqe Assigned At [facility] [employer] Other Start: 81-34-3394Wgm Assigned At [facility] HospitalTobacco smoking status NHISUnknown if ever smokedCEDAR CITY HOSPITAL HealthcareStart: 01-21-2015 End: 78-70-3271HfdEmlten (finding)[facility] Hospitaltart: 06-67-8746Onx assigned at birthNot on fileCEDAR CITY HOSPITAL HealthcareStart: 04-17-2022 Tobacco smoking status NHISEx-smokerSelect [facility] Health SystemHistory of tobacco useCurrent smokerEast [facility] SystemStart: 10-63-8892Vqydblf use and exposureSmokeless tobacco non-userSelect Medical Specialty [facility] Health SystemStart: 07-14-2022 End: 15-81-6283Wgdswjjhq beverage intakeCurrent drinker of alcohol (finding) [facility] SystemStart: 07-29-2020 End: 51-84-4272Lzsmfcc of Social functionProMount St. Mary Hospitalca Health SystemChildcareUnknown [facility] SystemStart: 65-42-4948Grdjwxw Tpppvmg81t social smoker [facility] SystemStart: 12-71-7824Knrlavr CommentsocialProMedica Health System Goals DatePatient GoalDesired Activity/StatePersonal health goal Clinical Notes 04-19-2023 to 04-13-2025 Note Date & [id number] Miscellaneous Notes* Telephone Encounter - Concepción Huynh CMA - 04/13/2025 1:59 PM EDT The patient called the office because her work wants documentation that she has surgery scheduled and that she'll be needing to be off work 4-6 weeks. She's scheduled for a DaVinci Cholecystectomy byDr Grillis on 05/26/25. She will be retiring in the beginning of the upcoming year so they're just trying to get documentation organized ahead of time. I let her know that her HR at work should have some paperwork that willneed to be filled out. That paperwork is usually completed just prior to surgery. She's going to speak with HR for [employer], which she says is an agricultural place . Aurelia has an appointment at our office on 05/18/25, so I would assume she can get any documentation that she needs at that time. She stated that she will call back to let us know if her HR department will fax us the paperwork that they need. documented in this [facility]Gre[facility]10-[facility] Telephone encounter Note* Telephone Encounter - Concepción Huynh CMA - 04/13/2025 1:59 PM EDT The patient called the office because her work wants documentation that she has surgery scheduled and that she'll be needing to be off work 4-6 weeks. She's scheduled for a DaVinci Cholecystectomy byDr Grillis on 05/26/25. She will be retiring in the beginning of the upcoming year so they're just trying to get documentation organized ahead of time. I let her know that her HR at work should have some paperwork that willneed to be filled out. That paperwork is usually completed just prior to surgery. She's going to speak with HR for [employer], which she says is an agricultural place . Aurelia has an appointment at our office on 05/18/25, so I would assume she can get any documentation that she needs at that time. She stated that she will call back to let us know if her HR department will fax us the paperwork that they need. [facility] Nginx [id number] History of Present illness Narrative* Valentina Valdivia, - 03/11/2025 9:45 AM EDT Images from the original note were not included. [facility] [address] [id number] CONSULT NOTE CHIEF COMPLAINT Chief Complaint Patient presents with Abdominal Pain Right upper quadrant pain, mild cholelithiasis, possible polyp or sludge, referred by Dr. Loida Harden is a 59 y.o. female who presents with complaints of right upper quadrant abdominal pain radiating to the back with mild nausea but no emesis no fever or chills or jaundice. Sometimes ifshe eats too much that becomes worse. She had a recent ultrasound with findings below. She was worked up previously in 2018 by me and had a [facility] HIDA scan which was negative as well as anultrasound but ultrasound now shows mild cholelithiasis polyps and/or sludge. About 2-1/2 months ago she had a week where she had pain rating it 5 to 6/10 for a whole week and just put up with it most of the time she has chronic pain 1-1/2 out of 10. She is currently seeing a hormonal therapist who has diagnosed her with a Bernice's disease as well as prediabetes. She is also concerned about a purplish skin lesion on her left medial forearm which she showed the bag adjuster but was not concerned. It is a different color than the rest of her nevi. She wants that removed. She is dealing with her who has bladder cancer and had a recent prostatectomy as well as removal of his bladder done at the [facility] as well as aortic valve surgery earlier this year.He is recuperating. Patient had gallbladder ultrasound performed at the [facility] on 02/17/2025 which showed gallbladder to be distended with echogenic nonmobile material within the gallbladder toward the neck which could represent stones polyps or tumefactive sludge. There was no intra or extrahepatic biliary dilatation. Liver was normal. No intrahepatic masses seen appropriate hepato renal flow within the main portal vein. Pancreas shows no significant abnormality. No free fluid is seen within Morison's pouch. MEDICATION Current Outpatient Medications: calcium carbonate-vitamin D3 (OSCAL 500 + D) 500 mg(1,250mg) -200 units per tablet, Take 1 tablet by mouth in the morning and 1 tablet in the evening. Take with meals., Disp: , Rfl: cetirizine (ZyrTEC) 10 mg capsule, Take 1 capsule (10 mg total) by mouth in the morning., Disp: , Rfl: hydrocortisone (HYTONE) 2.5 % cream, Apply 1 application topically in the morning and 1 applicationbefore bedtime. (Patient not taking: Reported on 03/11/2025), Disp: , Rfl: hydrocortisone-pramoxine (ANALPRAM-HC) 2.5-1 % lotion, Apply topically 3 (three) times a day. (Patient not taking: Reported on 03/11/2025), Disp: , Rfl: lidocaine (XYLOCAINE) 5 % ointment, Apply 1 application topically as needed for pain. (Patient not taking: Reported on 03/11/2025), Disp: , Rfl: methylPREDNISolone (MEDROL, MARTHA,) 4 mg tablet, Take 1 tablet (4 mg total) by mouth in the morning and 1 tablet (4 mg total) before bedtime. (Patient not taking: Reported on 03/11/2025), Disp: , Rfl: silver sulfADIAZINE (SILVADENE) 1 % cream, Apply 1 application topically in the morning. (Patient not taking: Reported on 03/11/2025), Disp: 25 g, Rfl: 0 UNABLE TO FIND, daily. 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 Valdivia at [facility] HEMORRHOID SURGERY 05/24/2022 Dr. Valdivia at [facility] HYSTERECTOMY LYSIS OF ADHESIONS TONSILLECTOMY SOCIAL HISTORY Social History Socioeconomic History Marital status: Spouse name: Not on file Number of children: Not on file Years of education: Not on file Highest education level: Not on file Occupational History Not on file Tobacco Use Smoking status: Former Smokeless tobacco: Never Tobacco comments: 20s social smoker Vaping Use Vaping status: Never Used Substance and Sexual Activity Alcohol use: Yes Comment: social Drug use: No Sexual activity: Not Currently Partners: Male Other Topics Concern Not on file Social History Narrative Not on file Social Drivers of Health Financial Resource Strain: Not on file Food Insecurity: No Food Insecurity (06/02/2022) Hunger Screening Food Insecurity - Worry: Never True Food Insecurity - Inability: Never True Transportation Needs: Not on file Physical Activity: Not on file Stress: Not on file Social Connections: Not on file Interpersonal Safety: Not on file Housing Instability: Not on file FAMILY HISTORY Family History Problem Relation Age of Onset Hypertension Mother Heart disease Father REVIEW OF SYSTEMS: Constitutional: Denies fevers, denies recent illnesses. Eyes: Denies any vision changes. ENT: Denies any throat pain. Neck: Denies any neck pain. Cardiovascular denies chest pain. Denies palpitations. Respiratory: Denies shortness of breath, denies cough, denies history of asthma or any other pulmonary illnesses. Gastrointestinal: See chief complaint Genitourinary negative for dysuria hematuria urinary frequency or urgency. Musculoskeletal: Negative for extremity pains or joint discomfort. Neurologic: No change in sensation or paresthesias or history of seizure disorder skin: No rashes. Hematologic: No anemia. No purpura. No petechiae and no prolonged or excessive bleeding Allergic and immunologic: No pruritus. No swelling. Endocrine: Positive prediabetes; positive Bernice's? No unexplained weight loss. No polydipsia. No polyuria. No polyphagia. PHYSICAL EXAM Constitutional: She is oriented to person, place, and time. Vital signs are normal. She appears well-developed and well-nourished. HEENT: Head: Normocephalic and atraumatic. Eyes: Conjunctivae, EOM and lids are normal. Neck: Trachea normal. Neck supple. No thyroid mass present. Cardiovascular: Normal rate and regular rhythm. Pulmonary/Chest: Effort normal and breath sounds normal. Abdominal: Soft. Normal appearance. Obese with tenderness in the right upper quadrant mild guarding. She exhibits no distension and no mass. There is no hepatosplenomegaly or splenomegaly. There is plus-minus Falcon's sign. No hernia. Musculoskeletal: Normal range of motion. Lymphadenopathy: She has no cervical adenopathy. Neurological: She is alert and oriented to person, place, and time. Skin: Skin is warm, dry and intact. 1-2 mm purplish skin lesion volar surface of left distal forearm Psychiatric: She has a normal mood and affect. Her speech is normal and behavior is normal. Cognition and memory are normal. IMPRESSION 1. Chronic cholecystitis with? Sludge cholesterolosis cholelithiasis with right upper quadrant pain 2. Obesity with a BMI of 30 3. Prediabetes and? Bernice's thyroiditis 4. Skin lesion left distal forearm 1-2 mm ASSESSMENT & PLAN 1. Robotic /Laparoscopic cholecystectomy with possible open cholecystectomy. I discussed the risks,benefits, and alternatives to surgery, which may include infection, bleeding, bile duct injury, intestinal injury, blood clots in legs or lungs, pneumonia, heart attack, and/or . Patient voices understanding and wishes to proceed. 2. Excision of skin lesion left forearm at time of cholecystectomy She may want to wait until May of this year to have this done since her is recuperating and if she does she would need repeat history and physical within 30 days of surgery date. She voiced understanding of all the above and wished to proceed. Evaluation included: Preparing to see the patient (e.g., review of tests) Obtaining and/or reviewing separately obtained history Performing a medically appropriate examination and/or evaluation Counseling and educating the patient/family/caregiver Referring and communicating with other health care partner - Valentina Valdivia DO 03/11/25 9:48 AM This note was created with the assistance of a speech recognition program. While intending to generate a timely document that accurately reflects the content of the visit, no guarantee can be provided that every grammatical or spelling mistake has been or will be identified or corrected. Thank you for your understanding. documented in this encounterBrecksville VA / Crille HospitalArtsApp [id number] Miscellaneous Notes* Telephone Encounter - Bess Lino - 02/27/2025 1:29 PM EDT Called patient in regard to RUQ pain referral received from Dr. Mariscal. Left message on patients voicemail to call the office back to schedule an appointment as I was unable to make contact. * Telephone Encounter - Whit Potts - 02/27/2025 1:29 PM EDT Aurelia called the office back and we scheduled her an appointment on 03/11/[address] Valdivia. documented in this encounterGreene [facility] Hospital2025 Telephone encounter Note* Telephone Encounter - Bess Huynh - 02/27/2025 1:29 PM EDT Called patient in regard to RUQ pain referral received from Dr. Mariscal. Left message on patients voicemail to call the office back to schedule an appointment as I was unable to make contact. [facility]2025 Telephone encounter Note* Telephone Encounter - Whit Potts - 02/27/2025 1:29 PM EDT Aurelia called the office back and we scheduled her an appointment on 03/11/[address] Valdivia. [facility]08-21-2025 Chief complaint+Reason for visit Narrative* Chief Complaint Admit Date back/side pain February 05, 2025 10 :44am Referral Order February 26, 2025 1:36pm Reason for Visit Admit Date Osteoporosis February 05, 2025 10 :44am Right flank pain February 05, 2025 10 :44am RUQ abdominal pain February 05, 2025 10 :44am [facility] Work Phone: 1(602) 163-797508-21-2025 Evaluation note* Diagnosis Onset Date Resolution Status Admit Date Osteoporosis acuteAugust 2024 10:44amRight flank painacuteAugust 2024 10:44amRUQ abdominal painacuteAugust 2024 10:44am [facility] Work Phone: 1(917) 437-247801-24-2024 Evaluation note* Encounter Date Diagnosis Assessment Notes Treatment Notes Treatment Clinical Notes Jun, Acute non-recurrent maxillary si nusitis (ICD-10 - J01.00) Sinus infections can be triggered by a secondary infection from a viral URI or even seasonal allergies. Take medications as directed. Use saline nasal spray prior to presciption nasal spray. Take medications as directed, and complete all doses of medication even if you start to feel better. Patientadvised to follow up with PCP if symptoms persist or worsen. Patient verbalized understanding and agreement with treatment plan. [employer] Other 12-19-2023 Evaluation note* Encounter Date Diagnosis Assessment Notes Treatment Notes Treatment Clinical Notes May, Hypothyroidism, unspecified type (ICD-10 - E03.9) [employer] Other 11-02-2023 Evaluation note* Encounter Date Diagnosis Assessment Notes Treatment Notes Treatment Clinical Notes Apr, Well adult exam (ICD-10 - Z00.00 ) We have discussed the necessity of following [...] vaccinations that apply. All questions answered and p atient is sent home pleased, without concerns. Apr,ervical pain (neck) (ICD-10 - M54.2)Discussed massotherapy physical therapy and daily home stretches as needed. We will call patient with x-ray results. [employer] Other Evaluation noteNo assessment information available [facility] Work Phone: Evaluation note* Diagnosis Onset Date Resolution Status Admit Date Osteoporosis acuteAugust 2024 10:44amRight flank painacuteAugust 2024 10:44amRUQ abdominal painacuteAugust 2024 10:44am [facility] Work Phone: Evaluation note* Diagnosis Gallbladder disease- Primary Unspecified disorder of gallbladder Skin lesion of left arm Unspecified disorder of skin and subcutaneous tissue documented in this encounter [facility] SystemHistory general Narrative - Reported* Type Description Date Medical History Problem Title : Acut e bronchitis due to other specified organisms [], Problem Description : Acute bronchitis due to other specified organisms [], Problem Comment : Acute bronchitis due to other specified organisms, Problem Status : Active,, Medical HistoryProblem Title : compliance with medical treatment, Problem Description : compliance with medical treatment, Problem Comment : Done, Problem Status : Active,,Medical HistoryProblem Title : Depression Screening, Problem Description : Depression Screening, Problem Comment :Negative, Problem Status : Active,,Medical HistoryProblem Title : Hypothyroidism, Problem Status : Active,, Medical HistoryProblem Title : MEDICAL: Headaches, Problem Status : Active,, Medical HistoryProblem Title : MEDICAL: No history of significant medical diseases, Problem Status : Inactive,,Medical HistoryProblem Title : no known problems, Problem Description : no known problems, Problem Comment : F, Problem Status : Active,,Medical HistoryProblem Title : past medical history E&M, Problem Description : past medical history E&M, Problem Comment : Headaches, Problem Status : Active,,Medical HistoryProblem Title : past medical history reviewed, Problem Description : past medical history reviewed,Problem Comment : reviewed - no changes required, Problem Status : Active,,Medical HistoryProblem Title : PCP: Sveta Mariscal, Problem Status : Active,,Medical HistoryProblem Title : Pharmacy: [facility], Problem Status : Active,,Medical HistoryProblem Title : PHQ2 Questionairre Score, Problem Description : PHQ2 Questionairre Score, Problem Comment : 0, Problem Status : Active,,Medical HistoryProblem Title : PHQ9 Question One score, Problem Description : PHQ9 Question One score, Problem Comment : 0, Problem Status : Active,,Medical HistoryProblem Title : PHQ9 Question Two score, Problem Description : PHQ9 Question Two score, Problem Comm ent : 0, Problem Status : Active,,Medical HistoryProblem Title : TRANSFUSION HISTORY: No history of receiving blood or blood product transfusion(s),Problem Status : Active,,Surgical HistoryappendectomySurgical Historytonsillectomy Surgical HistoryHYSTERECTOMYHospitalization HistoryMVA in 7th gradeThe [employer] Team Other Hospital Discharge instructionsAmbulatory Orders* Referral to General Surgery Time Frame: 02/26/25, Location: None [facility] Work Phone: InstructionsNot on filedocumented in this encounter [facility] SystemInstructionsNot on filedocumented in this encounter [facility] SystemInstructionsNot on filedocumented in this encounter [facility]ML[facility] SystemReason for referral (narrative)No reason for referral information availableTrihealth Good Samaritan Hospital Work Phone: Summary Purpose Family History [...] and content) DATE CREATED AUTHOR 06/08/2022 [facility] DATE CREATED AUTHOR AUTHOR'S ORGANIZ ATION 03/21/2025 [facility] DATE CREATED AUTHOR AUTHOR'S ORGANIZ ATION 03/22/2025 [facility] REASON FOR VISIT (unrecogniz ed section and content) ReasonCommentsAbdominal PainRight upper quadrant pain, mild cholelithiasis, possible polyp or sludge, referred by Dr. Mariscal Care Teams (unrecognized sec tion and content) Team Status: Active Member Role Status Dates Sveta Mariscal MD Primary Care Provider Active Team Status: Inactive Member Role Status Dates Sveta Mariscal MD Primary Care Provider Active Start: February 05, 2025 End: February 05, 2025Marcia E Mariscal , MDAttending ProviderActiveStart: February 05, 2025 End: February 05, 2025 Team Status: Active Member Role Status Dates Abdelrahman Brown DO Primary Care Provider Active Start: August 07, 2023 Elizabeth Greenwood ProviderActiveStart: August 07, 2023 Team Status: Active Member [...] 2024 Team Status: Active Member Role Status Dates Sveta Mariscal MD Primary Care Provider Active Start: February 26, 2025 Sedrick Houston ProviderActiveStart: February 26, 2025 Team MemberRelationshipSpecialtyStart DateEnd Date Sveta Mariscal MD [address] [id number] PCP - General11/20/17Team MemberRelationshipSpecialtyStart DateEnd Date Sveta Mariscal MD [address] [id number] PCP - General11/20/17Team MemberRelationshipSpecialtyStart DateEnd Date Sveta Mariscal MD [address] [id number] PCP - General11/20/17 Goals (unrecognized section and content) Goals may [...] BE BASED ON THE PRIMARY CLINICAL RECORDS. [facility] [employer] [facility]. provides no warranty or guarantee of the accuracy or completeness of information in this document.
--- OUTSIDE RECORDS SUMMARY | 2025-05-11 21:04 | XMS_ITS | Clinical Summary ---
Author Organization [facility] Address [address] [place] [address] Care Team Providers Care Drop Clipper Name Role Phone Unavailable Primary Care Provider Unavailabl e Allergies No known active allergies Medications MedicationSigDispense QuantityRefillsLast FilledStart DateEnd DateStatus fluconazole (Diflucan) 150 MG tablet Indications:Yeast infectionTake 1 tablet (150 mg) by mouth 1 (one) time for 1 dose This is a 1 time dose, take single tablet by mouth. 1 tablet 5Active Encounters DateTypeDepartmentCare LtnkYkdyzqrbjrc26/24/2025 3:00 PM ESTProcedure Visit [facility] [address] [place] [address] Hiral Cerna PA Well woman exam with routine gynecological exam; H/O: hysterectomy; Yeast pqeowguea69/24/2025amboo flowsheet [facility] [address] [place] [address] Hiral Cerna PA from Last 3 Months Social History Tobacco UseTypesPacks/DayYears UsedDateSmoking Tobacco: Never Assessed CommentsNoSex and Gender InformationValueDate RecordedSex Assigned at BirthNot on fileLegal XnuSezcot64/15/2023 11:36 PM EDTGender IdentityNot on fileSexual OrientationNot on file Last Filed Vital Signs Vital SignReadingTime TakenCommentsBlood Kkmnuzmp174/7411 3:24 PM EST Pulse--Temperature--Respiratory Rate--Oxygen Saturation--Inhaled Oxygen Concentration--Uksbwa08.7 kg (189 lb)05/11/2025 3:24 PM ESTHeight--Body Mass Index-- Plan of Treatment DateTypeDepartmentCare Team (Latest Contact Info)Joldoifmmgu09/30/2026 11:00 AM ESTProcedure Visit [facility] O[facility]YMaria [facility] Jesus [address] [place] [address] Hiral Cerna PA [address] [place], [place] [address] Insurance
--- OUTSIDE RECORDS SUMMARY | 2025-05-11 21:04 | XMS_ITS | Clinical Summary ---
Author Organization [facility] Address [address] [place] [address] Care Team Providers Care Pricing Lead Name Role Phone Cam Acosta Primary Care Provider [phone] Medications MedicationSigDispense QuantityRefillsLast FilledStart DateEnd DateStatus PREMARIN 2.5 MG ORAL TAB Take one(1) tablet daily. Active PREMARIN 2.5 MG ORAL TAB Take one(1) tablet daily. Active Social History Tobacco UseTypesPacks/DayYears UsedDateSmoking Tobacco: Never Assessed CommentsNoSex and Gender InformationValueDate RecordedSex Assigned at BirthNot on fileLegal LytFscvxm93/02/2012 7:29 AM ESTGender IdentityNot on fileSexual OrientationNot on file Last Filed Vital Signs Vital SignReadingTime TakenCommentsBlood Pnrzksia328/6005 9:18 AM EDT Cccgp4344 9:18 AM EDTTemperature--Respiratory Rate--Oxygen Saturation-- Inhaled Oxygen Concentration--Fisvmo48.4 kg (157 lb 6.4 oz)10/26/2004 9:18 AM KQBQipras650 cm (5' 6.14 )10/26/2004 9:18 AM EDTBody Mass Index25.305 9:18 AM EDT Plan of Treatment Health MaintenanceDue DateLast DoneCommentsAnxiety Yoazlgxoq57/27/1982Depression Fkfzfvrsc27/27/1982HIV Fxtryagwx18/27/1982Hepatitis C Roiyzeoih26/27/1982 DTaP,Tdap,Td Vaccine (1 - Tdap)09/11/1982Cervical Cancer Zagbbzapk64/27/1985 Mammogram Xgkypeevc75/27/2004CT Adspnfezxjgu25/27/2009Cologuard (FIT-DNA) 09/11/20082403Ozavkpqrmzv61/27/2009Colorectal Cancer Hklodzgkw10/27/2009Diabetes Mdelzeyux62Fecal Occult Blood09/11/2008Lipid Screening 09/11/20089452Anzbhfvbzkdbr35/27/2009Pneumococcal Vaccine: 50+ (1 of 1 - PCV) 09/11/2013Shingrix Vaccine (1 of 2)09/11/2013Covid-19 Vaccine (1 - 2024- season)2025Influenza Vaccine (#1)2025RSV Vaccine (1 - 1-dose 75+ series)09/11/2038 Procedures Procedure NamePriorityDate/TimeAssociated DiagnosisCommentsCOMPREHENSIVE METABOLIC AIKUQOokrqhf67/11/2005 10:07 AM EDT Benign Higinio Pituitary from Last 3 Months or Most Recently Relevant to Health Maintenance Results * (ABNORMAL) COMP METABOLIC PANEL (10/26/2004 10:07 AM EDT)ComponentValueRef RangeTest MethodAnalysis TimePerformed AtPathologist SignatureProtein, Total 7.76.0 - 8.4 g/dLOHIO[facility] LABAlbumin4.93.5 - 5.0 g/dLOHIO[facility] JUYWbuikau43.28.5 - 10.5 mg/dLOHIOHE[facility] LABBilirubin, Total0.30.0 - 1.5 mg/dLOHIOHE[facility] LABAlkaline Srrdhvbzbnd9768 - 150 U/[facility] BRFDFN272 - 40 U/[facility] PHOClmkmvs9626 - 100 mg/dLOHIOHE[facility] CJEEMP177 - 25 mg/dLOHIO[facility] LABCreatinine1.00.7 - 1.4 mg/dLOHIOHE[facility] CBVFvyacz300826 - 148 mmol/[facility] LABPotassium4.83.5 - 5.0 mmol/[facility] TRTJnyikkqt72693 - 110 mmol/[facility] JXMCH301 (A)23 - 32 mmol/[facility] LABAnion Gap20(A)0 - 15 mmol/[facility] RJFOBC718 - 45 U/[facility] LABSpecimen (Source)Anatomical Location / LateralityCollection Method / VolumeCollection TimeReceived Time Blood specimen (specimen)BLOOD SPECIMEN / Rxwctqd9310/26/2004 10:07 AM EDT Narrative Authorizing ProviderResult TypeResult StatusAmir (Hist) Keren MIGUELLABORATORY Final ResultPerforming OrganizationAddressCity/State/ZIP CodePhone Number [facility] [address] [place] [address] from Last 3 Months or Most Recently Relevant to Health Maintenance Insurance Care Teams Team MemberRelationshipSpecialtyStart DateEnd Date Cam Acosta [address] [place] [address] PCP - General10/04/04
--- OUTSIDE RECORDS SUMMARY | 2025-05-11 21:04 | XMS_ITS | Clinical Summary ---
Author Organization [employer] Address [facility] [id number] [address] 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 Take with meals.Active cetirizine (ZyrTEC) 10 mg capsule Take 1 capsule (10 mg total) by mouth in the morning.Active clotrimazole-betamethasone (LOTRISONE) cream Apply 1 Application topically 2 (two) times a day as needed.5Active [employer] THYROID 30 mg tablet Take 1 tablet (30 mg total) by mouth in the morning.5Active estradioL (ESTRACE) 1 mg tablet Take 1 tablet (1 mg total) by mouth in the morning.5Active progesterone (PROMETRIUM) 200 mg capsule Take 1 capsule (200 mg total) by mouth before bedtime.5Active magnesium oxide (MAGOX) 400 mg tablet Take 1 tablet (400 mg total) by mouth in the morning.Active zinc gluconate 50 mg tablet Take 1 tablet (50 mg total) by mouth in the morning.Active docusate sodium (COLACE) 100 mg capsule Take 1 capsule (100 mg total) by mouth 3 (three) times a day as needed for constipation.Active MULTIVITAMIN ORAL Take 1 tablet by mouth in the morning. EvexiPel Complete- Vitamin A, D3, K2. Active testosterone 25 mg pellet by implant route.Active tirzepatide 10 mg/0.5 mL pen injector Inject 10 mg under the skin every 7 days.Active Active Problems ProblemNoted DateDiagnosed DateHx of squamous cell gshscsuvx45/01/2023 Overview (07/14/2022): RT SHOULDER 06/2022, @ [facility] Encounters DateTypeDepartmentCare PqnpRbjkwcpduva32/27/2025[facility]phone [facility] [address] [place] [address] Concepción Huynh CMA 03/11/2025 9:45 AM EDTOffice Visit [facility] [address] [place] [phone] Johny Rodriguez DO Gallbladder disease (Primary Dx); Skin lesion of left arm03/11/20251336Tlqlee54/22/2025 11:35 AM EDTAncillary Procedure [facility] [address] [place] [phone] Pain02/27/2025Telephone [facility] [address] [place] [phone] Johny Rodriguez DO 02/17/2025 9:50 AM EDTAncillary Procedure [facility] [employer] [address] [place] [phone] Painfrom Last 3 Months Family History Medical HistoryRelationNameCommentsHeart diseaseFatherHeart diseaseMother HypertensionMotherRelationNameStatusCommentsFatherDeceasedMotherAlive Social History Tobacco UseTypesPacks/DayYears UsedDateSmoking Tobacco: FormerSmokeless Tobacco: Never Tobacco Cessation:Counseling Given: Not Answered Comments:20s social smoker Alcohol UseStandard Drinks/WeekCommentsYes0 (1 standard drink = 0.6 oz pure alcohol)socialChildcareAnswerDate FxmirqsuAmbuvfgaoUuyiqra74/12/2019Employment AnswerDate YqfrsasgBbputtotfbOlsigxz99/12/2019Hunger ScreeningAnswerDate RecordedWithin the past 12 months we worried whether our food would run out before we got money to buy more.Never True03/11/2025Within the past 12 months the food we bought just didn't last and we didn't have money to get more.Never True03/11/2025Purpose - LifeAnswerDate RecordedPurpose and direction in life Vgveekq94/11/2021CommentsNoSex and Gender InformationValueDate Recorded Sex Assigned at BirthNot on fileLegal OdjJtjvni92/06/2015 11:44 AM EDTGender IdentityNot on fileSexual OrientationNot on file Last Filed Vital Signs Vital SignReadingTime TakenCommentsBlood Xuqsauhc070/7709 9:44 AM EDT Qooty305203/11/2025 9:44 AM IQQAphslnlslfi79.9 ??C (98.4 ??F)07/14/2022 10:02 AM ESTRespiratory Rate--Oxygen Saturation--Inhaled Oxygen Concentration--Kwqsoc74.5 kg (188 lb 6.4 oz)03/11/2025 9:44 AM DCAYemduw626.2 cm (5' 7 )03/11/2025 9:44 AM EDTBody Mass Index29.51003/11/2025 9:44 AM EDT Plan of Treatment DateTypeDepartmentCare Team (Latest Contact Info)Ebqtmnlsiss92/01/2025 9:30 AM ESTOffice Visit [facility] [address] [place] [phone] Ramona Hernández, TRANSACTIONAL ATTORNEY-MITTEN STITCHER [address] [place] [address] 05/18/2025 11:15 AM ESTProcedure visit [facility] - Pre Admit [address] [place] [phone] 05/26/2025 7:30 AM ESTHospital Encounter [facility] - Surgery [address] [place] [phone] Johny Rodriguez DO [address] [place] [address] 05/26/2025 7:30 AM ESTAnesthesia Event [facility] [address] [place] [phone] Nicholas Gonzales, DO [address] [facility], [place] [phone] 05/26/2025 7:30 AM EST - 05/26/2025 9:00 AM ESTSurgery [facility] Surgery [address] [place] [phone] Johny Rodriguez, DO [address] [place] [address] DAVINCI CHOLECYSTECTOMY [15692 (CPT??) +1 more]06/09/2025 9:30 AM ESTOffice Visit [facility] [address] [place] [phone] Ramona Hernández, TRANSACTIONAL ATTORNEY-MITTEN STITCHER [address] [place], [place] [phone] NamePriorityAssociated DiagnosesDate/TimeDAVINCI CHOLECYSTECTOMY gallbladder disease 05/26/2025 7:30 AM ESTHealth MaintenanceDue DateLast DoneCommentsDepression Uakglursf90/27/1976Adult BMI Follow Up Plan09/11/1981DTaP,Tdap and Td Vaccines (1 - Tdap)/Zoster (Shingles) Vaccine (1 of 2)09/11/2013COVID- 19 Vaccine (3 - 2024- season)512/02/2021, 08/28/2020Influenza Vaccine 5Adult BMI Hwiawczck05/Tobacco Fiirbhila28/31/2026 04/17/20254530Zrismphpocc41/07/202606/07/2022RSV ( or age 60+ yrs) (1 - 1- dose 75+ series)09/11/2038 Goals GoalPatient Goal TypeAssociated ProblemsRecent ProgressPatient-Stated?Author Autogenerated Goal Care PlanAutogenerated ProblemNoPotts, Maryann [employer] Not on file Procedures Procedure NamePriorityDate/TimeAssociated DiagnosisCommentsCT ABDOMEN AND PELVIS WO TMLYVqqyqlp57/22/2025 11:35 AM EDT Pain US ABDOMEN XKYUXmornem10/02/2025 9:50 AM EDT Pain from Last 3 Months Results * CT abdomen and pelvis without contrast (03/09/2025 11:35 AM EDT)Specimen (Source)Anatomical Location / LateralityCollection Method / VolumeCollection TimeReceived Time Narrative Authorizing ProviderResult TypeResult StatusScanning Provider ExternalIMG CT ORDERABLESFinal ResultPerforming OrganizationAddressCity/State/ZIP CodePhone Number MANUALLY TRANSCRIBED RESULTS * Ultrasound abdomen limited (02/17/2025 9:50 AM EDT)Specimen (Source)Anatomical Location / LateralityCollection Method / VolumeCollection TimeReceived Time Narrative Authorizing ProviderResult TypeResult StatusScanning Provider ExternalIMG US ORDERABLESFinal ResultPerforming OrganizationAddressCity/State/ZIP CodePhone Number MANUALLY TRANSCRIBED RESULTS from Last 3 Months Additional Health Concerns Active ProblemsNoted DateDiagnosed DateAutogenerated Mfcmezn8203/11/2025 Insurance Care Teams Team MemberRelationshipSpecialtyStart DateEnd Date Sveta Flores MD [address] [place] [address] PCP - General11/20/17
--- OUTSIDE RECORDS SUMMARY | 2025-05-11 21:04 | XMS_ITS | Encounter Summary ---
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 Name Role Phone Unavailable Primary Care Provider Unavailabl e Encounter Details DateTypeDepartmentCare Team (Latest Contact Info)Xsmkzcycjbe65/24/2025amboo flowsheet NOM[facility] BARRETT [address] [address] Hiral Cerna, PA [address] [place], [facility] Social History Tobacco UseTypesPacks/DayYears UsedDateSmoking Tobacco: Never Assessed CommentsNoSex and Gender InformationValueDate RecordedSex Assigned at BirthNot on fileLegal YcpVjhoqu86/15/2023 11:36 PM EDTGender IdentityNot on fileSexual OrientationNot on filedocumented as of this encounter Plan of Treatment DateTypeDepartmentCare Team (Latest Contact Info)Vwynpnqqrez97/30/2026 11:00 AM ESTProcedure Visit NOM[facility]irdre BARRETT [address] [facility] [address] [address] Hiral Cerna PA [address] [place], [facility]11 documented as of this encounter Visit Diagnoses Not on filedocumented in this encounter
[2025-05-13 20:09] LABS: Age Gdln ACOG Testing Note (.); IGP, Aptima HPV, rfx 16/18,45 Note (.)
== END 2025-05-11 21:00 | disposition home or self-care (01) ==
LOC: LAB 20:59
PROVIDERS: PCP Family Medicine; Visit Provider Physician Assistant
DX: Z01.419 Encounter for gynecological examination (general) (routine) without abnormal findings (principal)
CPT/HCPCS: 88175